=== PATIENT | female | born 1965 | race Caucasian/White ===

== ENCOUNTER → 2017-01-17 | Outpatient (CLI) | payer BC ==
[~2017-01-17] MED LIST: ZOMIG
--- OUTSIDE RECORDS SUMMARY | 2017-01-17 15:44 | XMS REPORT | Continuity of Care Document ---
Author Author [facility] Organization [facility] Address Unknown Phone Unavailable Allergies Active Description Code Type Severity Reaction Onset Reported/Identified Relationship to Patient Clinical Status Yes No Known Drug Allergies [id number] Drug Allergy Unknown N/ A 03/11/2008 Medications Problems Date Dx Coded Attending Type Code Diagnosis Diagnosed By 11/20/2015 SUSANNAH CUNNINGHAM, MARIA M Mata Ot 625.9 Procedures Results Encounters ACCT No. Visit Date/Time Discharge Status Pt. Type Provider Facility Loc./Unit Complaint [id number] 03/01/2014 15:13:00 2013 23:59:59 CLS Outpatient MARIA M DAVALOS MD [facility] RAD
--- NOTE | 2017-01-17 18:04 | Diagnostic Imaging Report ---
PROCEDURE: CT sinuses without contrast TECHNIQUE: Multiple contiguous axial images were obtained through the sinuses without the use of intravenous contrast. Coronal and sagittal reformations were then performed. INDICATION: Left eye swelling. COMPARISON: None. FINDINGS: There is minimal mucosal thickening in the floor of the right maxillary sinus. The paranasal sinuses are otherwise clear. The ostiomeatal units and frontal recesses are patent. Midline nasal septum. No large pranay bullosa. Left Michelle cell. There is mild soft tissue thickening of the left eyelids compared to the right. No soft tissue thickening or fluid collections within the orbits. The mastoid air cells are clear. Moderate degenerative changes in the temporomandibular joints, left greater than right. IMPRESSION: 1. Minimal mucosal thickening in the floor of the right maxillary sinus. The paranasal sinuses are otherwise clear. 2. Soft tissue thickening of the left eyelids in relation to the right is nonspecific. No abnormal soft tissue thickening or fluid collections in the orbits. Dictated by: Dictated on workstation # [id number]
== END ==
LOC: RAD 15:41
PROVIDERS: ATTEND Nurse Practitioner Family
DX: R22.0 Localized swelling, mass and lump, head (principal)
CPT/HCPCS: 70486

== ENCOUNTER 2019-07-02 06:35 | Outpatient (CLI) | payer BC ==
[~2019-07-02] VITALS: Ht 152.4 cm; Wt 61.7 kg
[2019-07-02] MEDS ORDERED: HYDR25TA4 PO (16:21)
== END 2019-07-02 16:25 | disposition home or self-care (01) ==
LOC: PREOP 06:35
PROVIDERS: ATTEND Internal Medicine
DX: Z01.818 Encounter for other preprocedural examination (principal)

== ENCOUNTER 2019-07-06 07:04 | Day surgery (SDC) | payer BC ==
--- NOTE | 2019-06-21 18:31 | HISTORY AND PHYSICAL ---
DATE OF SERVICE: COLONOSCOPY HISTORY AND PHYSICAL HISTORY OF PRESENT ILLNESS: The patient is a 54-year-old white female referred by Dr. Ely for screening colonoscopy. She does report a history of chronic constipation. She will typically go every 7 to 10 days, passing a hard stool, many times having to strain. She does not like to take laxatives. She has previously not undergone colonoscopy. She is not aware of any rectal bleeding or melena and reports that her weight has been stable. She denies any significant abdominal cramping only prior to the passage of stool while she noted abdominal bloating when she has not had a bowel movement for over a week. She is taking no hnzj-[id number]-vsdfsge medications and reports hydrochlorothiazide for hypertension. She takes Zomig 5 mg p.r.n. migraine headaches. PAST SURGICAL HISTORY: She had a cholecystectomy in 2008, total abdominal hysterectomy in 2009. She has had bilateral breast implants and breast augmentation in the past. FAMILY HISTORY: Her father was an alcoholic that she knows little about, believes he probably of cirrhosis of the liver in his early 60s. Mother of complications of diabetes at the age of 73. 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 REVIEW OF SYSTEMS: CONSTITUTIONAL: The patient denies any night sweats, chills, fever or change in weight. CARDIOVASCULAR: She has had no past history of cardiovascular procedures. Denies chest pain, syncope, presyncope, palpitations or heart racing. PULMONARY: She denies any problems with cough, wheezing, chest congestion or dyspnea on exertion or at rest. GASTROINTESTINAL: As noted in the HPI. PHYSICAL EXAMINATION: GENERAL: Reveals a well-appearing huang white female, in no acute distress. VITAL SIGNS: Weight 136 pounds, blood pressure 104/80. HEENT: Unremarkable. Sclerae nonicteric. She has a Mallampati class 2 pharyngeal configuration. CHEST: Clear to auscultation. CARDIOVASCULAR: Reveals regular rate and rhythm without murmur, S3 or S4. ABDOMEN: Soft, supple without mass, organomegaly or tenderness. It had been about 2 days since her last bowel movement. No abdominal pain was noted. EXTREMITIES: Reveal no cyanosis, clubbing or edema. ASSESSMENT AND PLAN: The patient was set up for screening colonoscopy on 07/06/2019. Prep instructions with the Philippe-prep kit were given and the patient was advised to initiate MiraLAX 17 g daily for constipation symptoms and continue her current fiber supplementation. Depending on how she responds to this, we can discuss other options after colonoscopic evaluation. I thank you for the referral of this pleasant lady. Job ID: [id number] DocumentID: [id number] Dictated Date: 06/20/2019 17:46:26 Coal Sampler Date: 06/20/2019 18:48:09 Dictated By: RUTH RUSSELL MD MTDD
[~2019-07-06] VITALS: Ht 152.4 cm; Wt 61.7 kg
[2019-07-06] VITALS (13 sets, daily range): BP systolic 102–128; BP diastolic 63–81
[~2019-07-06 07:04] MED LIST changes: +HYDR25TA4 PO
[2019-07-06] MEDS ORDERED: D5 LR IV SOLUTION 1,000 ML IV STA (07:08)
[2019-07-06] MEDS ORDERED: D5 LR IV SOLUTION 1,000 ML IV ONE (07:09)
[2019-07-06] MEDS ORDERED: fentaNYL INJECTION 100 MCG/2 ML AMP IVP ONE (07:15)
[2019-07-06] MEDS ORDERED: LIDOCAINE JELLY 2% 6 ML SYRINGE MM PRN (07:15)
[2019-07-06] MEDS ORDERED: MIDAZOLAM 2 MG/2 ML (VERSED) VIAL IVP ONE (07:15)
[2019-07-06] MEDS ORDERED: MIDAZOLAM 2 MG/2 ML (VERSED) VIAL ONE ×2 (07:31)
[2019-07-06] MEDS ORDERED: LIDOCAINE JELLY 2% 6 ML SYRINGE ONE (07:31)
[2019-07-06] MEDS ORDERED: fentaNYL INJECTION 100 MCG/2 ML AMP ONE (07:31)
--- NOTE | 2019-07-06 09:44 | Pre-Op Note & Conscious Sedat ---
Pre-Operative Progress Note H&P Reviewed The H&P was reviewed, patient examined and no changes noted. Date H&P Reviewed: Jul 06, 2019 Time H&P Reviewed: 07:40 Conscious Sedation Pre-Proced ASA Score 1 For ASA 3 and 4: Consider anesthesia and medical clearance. Also, for patients with a history of failed moderate sedation consider anesthesia. Airway Lungs Heart ASA score ASA 1: a normal healthy patient ASA 2: a patient with a mild systemic disease (mid diabetes, controlled hypertension, obesity ASA 3: a patient with a severe systemic disease that limits activity (angina, COPD, prior Myocardial infarction) ASA 4: a patient with an incapacitating disease that is a constant threat to life (CHF, renal failure) ASA 5: a moribund patient not expected to survive 24 hrs. (ruptured aneurysm) ASA 6: a declared brain- patient whose organs are being harvested. For emergent operations, add the letter E after the classification Mallampati Classification Grade 2 Sedation Plan Analgesia, Amnesia, Plan communicated to team members, Discussed options with patient/fam, Discussed risks with patient/fam The patient is an appropriate candidate to undergo the planned procedure, sedation, and anesthesia. The patient immediately re-assessed prior to indication. RUTH RUSSELL MD Jul 06, 2019 09:44
--- OUTSIDE RECORDS SUMMARY | 2019-07-06 10:02 | XMS REPORT | CCD ---
Author Author Ira Morales Organization [facility] Address [address] [place] [address] Phone Care Team Providers Care Channel Marketing Coordinator Name Role Phone PP Unavailable CCM Unavailable Summary Purpose Interface Exchange Insurance Providers Payer name Policy type / Coverage type Covered democrat ID Effective Begin Date Effective End Date Blue Cross Blue [facility] Blue Cross/Blue [facility] [id number] Unknown Unknown Family history Son Diagnosis Age At Onset No Family Disease Entered N/A Sister Diagnosis Age At Onset No Family Disease Entered N/A Grandmother Diagnosis Age At Onset No Family Disease Entered N/A Aunt Diagnosis Age At Onset Breast cancer Unknown Father Diagnosis Age At Onset Diabetes Unknown Mother Diagnosis Age At Onset Diabetes Unknown Cardiovascular disease Unknown Uncle Diagnosis Age At Onset Melanoma Unknown Leukemia Unknown Daughter Diagnosis Age At Onset No Family Disease Entered N/A First cousin Diagnosis Age At Onset Leukemia Unknown Brother Diagnosis Age At Onset No Family Disease Entered N/A Social History Social History Element Codes Description Effective Dates Employment Unknown 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 Unknown Has never used illegal drugs 09/27/2011 Allergies, Adverse Reactions, Alerts Substance Reaction Codes Entered Date Inactivated Date Status * NO KNOWN ENVIRONMENTAL ALLERGIES Unknown 02/14/2012 No Inactive Date Active * NO KNOWN FOOD ALLERGIES Unknown 02/14/2012 No Inactive Date Active * NO KNOWN DRUG ALLERGIES Unknown 09/27/2011 No Inactive Date Active Past Medical History Illness Codes Condition Status Onset Date Resolved Date Encounter for gynecological examination (general) (routine) without abnormal findings ICD-9: V72.31 ICD-10: Z01.419 Active 06/12/2019 Unknown Acute upper respiratory infection, unspecified ICD-9: 465.9 ICD-10: J06.9 Active 03/02/2019 Unknown Other allergic rhinitis ICD-9: 477.8 ICD-10: J30.89 Active 12/02/2016 Unknown Encounter for general adult medical examination without abnormal findings ICD-9: V70.0 ICD-10: Z00.00 Active 05/19/2018 Unknown Essential (primary) hypertension ICD-9: 401.9 ICD-10: I10 Active 05/19/2018 Unknown Mixed hyperlipidemia ICD- 9: 272.2 ICD-10: E78.2 Active 05/19/2018 Unknown Overweight ICD-9: 278.02 ICD-10: E66.3 Active 04/22/2017 Unknown Edema of left eye, unspecified eyelid ICD-9: 374.82 ICD-10: H02.846 Active 01/11/2017 Unknown Localized swelling, mass and lump, head ICD-9: 782.2 ICD-10: R22.0 Active 01/11/2017 Unknown Dizziness and giddiness ICD-9: 780.4 ICD-10: R42 Active 12/02/2016 Unknown Acute laryngopharyngitis ICD-9: 465.9 ICD-10: J06.0 Active 01/25/2016 Unknown Acute recurrent maxillary sinusitis ICD-9: 461.0 ICD-10: J01.01 Active 01/25/2016 Unknown Cough ICD-9: 786.2 ICD-10: R05 Active 01/25/2016 Unknown Streptococcal pharyngitis ICD-9: 034.0 ICD-10: J02.0 Active 12/29/2015 Unknown Other screening mammogram ICD-9: V76.12 Active 08/24/2015 Unknown Urinary tract infection ICD-9: 599.0 Active 01/09/2015 Unknown OVERWEIGHT ICD-9: 278.02 Active 11/29/2014 Unknown Pelvic pain in female ICD- 9: 625.9 Active 02/18/2014 Unknown ACUTE URI ICD-9: 465.9 Active 01/05/2013 Unknown COUGH ICD-9: 786.2 Active 01/05/2013 Unknown Obesity ICD-9: 278.00 Active 11/01/2012 Unknown Migraine headache ICD-9: 346.90 Active 08/17/2012 Unknown ROUTINE GYNE EXAM ICD-9: V72.31 Active 11/18/2011 Unknown Hypertension Unknown Active 10/20/2011 Unknown ESSENTIAL HYPERTENSION ICD-9: 401.9 Active 10/20/2011 Unknown Pharyngitis ICD-9: 462 Active 10/20/2011 Unknown Migraines Unknown Active 09/27/2011 Unknown Problems Condition Codes Effective Dates Condition Status Encounter for gynecological examination (general) (routine) without abnormal findings ICD-9: V72.31 ICD-10: Z01.419 06/12/2019 Active Acute upper respiratory infection, unspecified ICD-9: 465.9 ICD-10: J06.9 03/02/2019 Active Other allergic rhinitis ICD-9: 477.8 ICD-10: J30.89 12/02/2016 Active Encounter for general adult medical examination without abnormal findings ICD-9: V70.0 ICD-10: Z00.00 05/19/2018 Active Essential (primary) hypertension ICD-9: 401.9 ICD-10: I10 05/19/2018 Active Mixed hyperlipidemia ICD- 9: 272.2 ICD-10: E78.2 05/19/2018 Active Overweight ICD-9: 278.02 ICD-10: E66.3 04/22/2017 Active Edema of left eye, unspecified eyelid ICD-9: 374.82 ICD-10: H02.846 01/11/2017 Active Localized swelling, mass and lump, head ICD-9: 782.2 ICD-10: R22.0 01/11/2017 Active Dizziness and giddiness ICD-9: 780.4 ICD-10: R42 12/02/2016 Active Acute laryngopharyngitis ICD-9: 465.9 ICD-10: J06.0 01/25/2016 Active Acute recurrent maxillary sinusitis ICD-9: 461.0 ICD-10: J01.01 01/25/2016 Active Cough ICD-9: 786.2 ICD-10: R05 01/25/2016 Active Streptococcal pharyngitis ICD-9: 034.0 ICD-10: J02.0 12/29/2015 Active Other screening mammogram ICD-9: V76.12 08/24/2015 Active Urinary tract infection ICD-9: 599.0 01/09/2015 Active OVERWEIGHT ICD-9: 278.02 11/29/2014 Active Pelvic pain in female ICD- 9: 625.9 02/18/2014 Active ACUTE URI ICD-9: 465.9 01/05/2013 Active COUGH ICD-9: 786.2 01/05/2013 Active Obesity ICD-9: 278.00 11/01/2012 Active Migraine headache ICD-9: 346.90 08/17/2012 Active ROUTINE GYNE EXAM ICD-9: V72.31 11/18/2011 Active Hypertension Unknown 10/20/2011 Active ESSENTIAL HYPERTENSION ICD-9: 401.9 10/20/2011 Active Pharyngitis ICD-9: 462 10/20/2011 Active Migraines Unknown 09/27/2011 Active Medications Medication Codes Instructions Start Date Stop Date Status Fill Instructions amoxicillin 500 mg tablet RxNorm: 439736 1 Tablet(s) PO TID 03/02/2019 03/08/2019 Inactive Zomig 5 mg tablet RxNorm: 360396 TAKE ONE TABLET BY MOUTH ONCE DAILY NEEDED 05/30/2018 No Stop Date Active hydrochlorothiazide 25 mg tablet RxNorm: 869532 1 Tablet(s) PO daily TAKE ONE TABLET BY MOUTH ONCE DAILY 05/19/2018 08/11/2019 Active patient to call when needs refills hydrochlorothiazide 25 mg tablet RxNorm: 499280 TAKE ONE TABLET BY MOUTH ONCE DAILY 04/25/2018 05/18/2018 Inactive hydrochlorothiazide 25 mg tablet RxNorm: 814405 TAKE ONE TABLET BY MOUTH ONCE DAILY 10/24/2017 04/24/2018 Inactive phentermine 37.5 mg capsule RxNorm: 658381 1 Capsule(s) PO daily 1 po q am 1/2 tab po q afternoon 06/27/2017 07/26/2017 Inactive phentermine 37.5 mg capsule RxNorm: 124000 1 Capsule(s) PO daily 1 po q am 1/2 tab po q afternoon 04/22/2017 05/21/2017 Inactive Zomig 5 mg tablet RxNorm: 310815 TAKE ONE TABLET BY MOUTH ONCE DAILY NEEDED 04/18/2017 05/23/2017 Inactive hydrochlorothiazide 25 mg tablet RxNorm: 350766 TAKE ONE TABLET BY MOUTH ONCE DAILY 04/18/2017 10/14/2017 Inactive Zithromax Z-Cameron 250 mg tablet RxNorm: 385541 1 Tablet(s) PO UD 01/11/2017 01/15/2017 Inactive Besivance 0.6 % eye drops,suspension RxNorm: 770556 1 Drop(s) OPH TID 01/11/2017 01/17/2017 Inactive ciprofloxacin 0.3 % eye drops RxNorm: 577138 Drop(s) OPH 1-2 drops every 2 hours while awake x 2 days, then every 4 hour x 5 days 12/10/2016 No Stop Date Active meclizine 25 mg tablet RxNorm: 011603 1 Tablet(s) PO TID as needed 12/03/2016 12/12/2016 Inactive Zithromax Z-Cameron 250 mg tablet RxNorm: 940331 1 Tablet(s) PO UD 12/03/2016 01/10/2017 Inactive Lipitor 10 mg tablet RxNorm: 010689 Tablet(s) 1 Tablet(s) PO QPM TAKE ONE TABLET BY MOUTH ONCE DAILY IN THE EVENING 03/22/2016 05/18/2018 Inactive hydrochlorothiazide 25 mg tablet RxNorm: 574932 Tablet(s) PO 03/22/2016 08/18/2016 Inactive TAKE ONE TABLET BY MOUTH EVERY DAY clonidine HCl 0.1 mg tablet RxNorm: 683550 1/2 Tablet(s) PO BID as needed for hot flashes 02/19/2016 03/19/2016 Inactive Zomig 5 mg tablet RxNorm: 831657 1 Tablet(s) PO daily 02/02/2016 04/17/2017 Inactive TAKE ONE TABLET BY MOUTH NEEDED please dispense generic Keflex 500 mg capsule RxNorm: 296229 1 Capsule(s) PO TID 01/26/2016 02/04/2016 Inactive hydrochlorothiazide 25 mg tablet RxNorm: 093149 1 Tablet(s) PO daily TAKE ONE TABLET BY MOUTH EVERY DAY 01/15/2016 03/14/2016 Inactive Lipitor 10 mg tablet RxNorm: 321085 1 Tablet(s) PO QPM TAKE ONE TABLET BY MOUTH ONCE DAILY IN THE EVENING 01/15/2016 03/14/2016 Inactive Kenalog 40 mg/mL suspension for injection RxNorm: 3012984 Milliliter(s) Inj 12/30/2015 12/30/2015 Inactive amoxicillin 500 mg capsule RxNorm: 855178 1 Capsule(s) PO TID 12/30/2015 01/05/2016 Inactive ceftriaxone 500 mg solution for injection RxNorm: 9532838 Inj 12/30/2015 12/30/2015 Inactive hydrochlorothiazide 25 mg tablet RxNorm: 708333 1 Tablet(s) PO daily TAKE ONE TABLET BY MOUTH EVERY DAY 11/14/2015 01/12/2016 Inactive Patient needs to make an appt Lipitor 10 mg tablet RxNorm: 821151 1 Tablet(s) PO QPM TAKE ONE TABLET BY MOUTH ONCE DAILY IN THE EVENING 11/14/2015 01/12/2016 Inactive Patient needs to make an appt clonidine HCl 0.1 mg tablet RxNorm: 100324 1/2 Tablet(s) PO BID as needed for hot flashes 02/14/2015 02/13/2015 Inactive clonidine HCl 0.1 mg tablet RxNorm: 658161 1/2 Tablet(s) PO BID as needed for hot flashes 02/14/2015 03/15/2015 Inactive Zomig 5 mg tablet RxNorm: 847952 1 Tablet(s) PO daily 02/13/2015 02/01/2016 Inactive TAKE ONE TABLET BY MOUTH NEEDED please dispense generic Bactrim DS 800 mg-160 mg tablet RxNorm: 061200 1 Tablet(s) PO BID 01/21/2015 01/20/2015 Inactive Bactrim DS 800 mg-160 mg tablet RxNorm: 947833 1 Tablet(s) PO BID 01/21/2015 01/27/2015 Inactive Cipro 500 mg tablet RxNorm: 775439 1 Tablet(s) PO BID 01/09/2015 01/15/2015 Inactive Pyridium 200 mg tablet RxNorm: 5143208 1 Tablet(s) PO TID PRN 01/09/2015 01/15/2015 Inactive phentermine 37.5 mg capsule RxNorm: 057210 1 Capsule(s) PO daily 1 po q am 1/2 tab po q afternoon 11/29/2014 12/28/2014 Inactive Lipitor 10 mg tablet RxNorm: 106259 TAKE ONE TABLET BY MOUTH ONCE DAILY IN THE EVENING 10/20/2014 10/14/2015 Inactive hydrochlorothiazide 25 mg tablet RxNorm: 096003 TAKE ONE TABLET BY MOUTH EVERY DAY 10/20/2014 10/14/2015 Inactive phentermine 37.5 mg capsule RxNorm: 416806 1 Capsule(s) PO daily 1 po q am 1/2 tab po q afternoon 08/22/2014 09/20/2014 Inactive Lipitor 10 mg tablet RxNorm: 983597 TAKE ONE TABLET BY MOUTH ONCE DAILY IN THE EVENING 07/18/2014 10/15/2014 Inactive hydrochlorothiazide 25 mg tablet RxNorm: 115768 TAKE ONE TABLET BY MOUTH EVERY DAY 07/18/2014 10/15/2014 Inactive Zomig 5 mg tablet RxNorm: 460562 1 Tablet(s) PO daily 07/17/2014 02/12/2015 Inactive TAKE ONE TABLET BY MOUTH NEEDED please dispense generic Lipitor 10 mg tablet RxNorm: 736022 1 Tablet(s) PO QPM 02/21/2014 06/20/2014 Inactive Lipitor 10 mg tablet RxNorm: 815576 1 Tablet(s) PO QPM 02/20/2014 02/20/2014 Inactive Zomig 5 mg tablet RxNorm: 912246 1 Tablet(s) PO daily 10/30/2013 07/16/2014 Inactive TAKE ONE TABLET BY MOUTH NEEDED please dispense generic phentermine 37.5 mg capsule RxNorm: 739467 1 Capsule(s) PO daily 1 po q am 1/ tab po q afternoon 09/13/2013 10/12/2013 Inactive Zomig 5 mg tablet RxNorm: 301327 1 Tablet(s) PO daily 06/28/2013 10/29/2013 Inactive TAKE ONE TABLET BY MOUTH NEEDED please dispense generic phentermine 37.5 mg capsule RxNorm: 461361 1 Capsule(s) PO daily 06/28/2013 07/27/2013 Inactive hydrochlorothiazide 25 mg tablet RxNorm: 426175 1 Tablet(s) PO TAKE ONE TABLET BY MOUTH EVERY DAY 06/25/2013 06/25/2013 Inactive hydrochlorothiazide 25 mg tablet RxNorm: 920640 1 Tablet(s) PO daily TAKE ONE TABLET BY MOUTH EVERY DAY 06/25/2013 11/13/2015 Inactive phentermine 37.5 mg capsule RxNorm: 794752 1 Capsule(s) PO daily 02/23/2013 03/24/2013 Inactive Zomig 5 mg tablet RxNorm: 271457 1 Tablet(s) PO daily 02/07/2013 06/27/2013 Inactive TAKE ONE TABLET BY MOUTH NEEDED Zomig 5 mg tablet RxNorm: 869409 Tablet(s) PO TAKE ONE TABLET BY MOUTH NEEDED 02/07/2013 05/29/2018 Inactive Rocephin 500 mg Solution for Injection RxNorm: 2291553 1.5 Milliliter(s) Inj 01/05/2013 01/05/2013 Inactive amoxicillin 500 mg capsule RxNorm: 740076 1 Capsule(s) PO TID 01/05/2013 01/11/2013 Inactive phentermine 37.5 mg capsule RxNorm: 295293 1 Capsule(s) PO daily 01/05/2013 02/03/2013 Inactive hydrochlorothiazide 25 mg tablet RxNorm: 369603 Tablet(s) PO TAKE ONE TABLET BY MOUTH EVERY DAY 12/07/2012 06/24/2013 Inactive phentermine 37.5 mg capsule RxNorm: 986093 1 Capsule(s) PO daily 11/01/2012 11/30/2012 Inactive Topamax 25 mg tablet RxNorm: 552336 1 Tablet(s) PO BID start with 25mg po in the evening and increase to twice daily after 2 weeks 08/17/2012 09/15/2012 Inactive hydrochlorothiazide 25 mg Tab RxNorm: 882026 Tablet(s) PO 05/01/2012 03/21/2016 Inactive TAKE ONE TABLET BY MOUTH EVERY DAY hydrochlorothiazide 25 mg tablet RxNorm: 757214 1 Tablet(s) PO daily 04/28/2012 04/30/2012 Inactive Zomig 5 mg tablet RxNorm: 450070 1 Tablet(s) PO 01/25/2012 02/06/2013 Inactive TAKE ONE TABLET BY MOUTH NEEDED Zomig 5 mg Tab RxNorm: 852389 1 Tablet(s) PO PRN 11/24/2011 11/23/2011 Inactive Zomig 5 mg Tab RxNorm: 983778 Tablet(s) PO 11/24/2011 01/24/2012 Inactive TAKE ONE TABLET BY MOUTH NEEDED phentermine 37.5 mg capsule RxNorm: 501188 1 Capsule(s) PO daily 10/20/2011 11/18/2011 Inactive Zomig 5 mg Tab RxNorm: 649521 1 Tablet(s) PO PRN No Start Date 11/23/2011 Inactive Zithromax Z-Cameron 250 mg Tab RxNorm: 896042 Tablet(s) PO No Start Date 11/17/2011 Inactive ciprofloxacin 0.3 % eye drops RxNorm: 634152 Drop(s) OPH 1-2 drops every 2 hours while awake x 2 days, then every 4 hour x 5 days No Start Date 12/09/2016 Inactive hydrochlorothiazide 25 mg Tab RxNorm: 553483 1 Tablet(s) PO daily No Start Date 04/27/2012 Inactive Medication Administered Medication Codes Instructions Start Date Status ceftriaxone 500 mg solution for injection RxNorm: 8264357 12/30/2015 No longer Active Kenalog 40 mg/mL suspension for injection RxNorm: 3682066 Milliliter 12/30/2015 No longer Active Rocephin 500 mg Solution for Injection RxNorm: 7902230 1.5Milliliter 01/05/2013 No longer Active Immunizations Vaccine Codes Date Status PPD Unknown 11/29/2014 completed PPD Unknown 06/25/2014 completed PPD Unknown 09/13/2013 completed Assessments Condition Codes Effective Dates Encounter for gynecological examination (general) (routine) without abnormal findings ICD-10: Z01.419 ICD-9: V72.31 06/12/2019 Other allergic rhinitis ICD-10: J30.89 ICD-9: 477.8 03/02/2019 Acute upper respiratory infection, unspecified ICD-10: J06.9 ICD-9: 465.9 03/02/2019 Mixed hyperlipidemia ICD-10: E78.2 ICD-9: 272.2 05/19/2018 Essential (primary) hypertension ICD-10: I10 ICD-9: 401.9 05/19/2018 Overweight ICD-10: E66.3 ICD-9: 278.02 06/27/2017 Edema of left eye, unspecified eyelid ICD-10: H02.846 ICD-9: 374.82 01/11/2017 Localized swelling, mass and lump, head ICD-10: R22.0 ICD-9: 782.2 01/11/2017 Dizziness and giddiness ICD-10: R42 ICD-9: 780.4 12/03/2016 Cough ICD-10: R05 ICD-9: 786.2 01/26/2016 Acute laryngopharyngitis ICD-10: J06.0 ICD-9: 465.9 01/26/2016 Acute recurrent maxillary sinusitis ICD-10: J01.01 ICD-9: 461.0 01/26/2016 Streptococcal pharyngitis ICD-10: J02.0 ICD-9: 034.0 12/30/2015 Other screening mammogram ICD-9: V76.12 08/25/2015 Urinary tract infection ICD-9: 599.0 01/09/2015 OVERWEIGHT ICD-9: 278.02 11/29/2014 ESSENTIAL HYPERTENSION SNOMED: 73401991 ICD-9: 401.9 02/18/2014 Pelvic pain in female ICD-9: 625.9 02/18/2014 MIGRAINE NOS/NOT INTRCBL ICD-9: 346.90 02/18/2014 OBESITY ICD-9: 278.00 09/13/2013 COUGH ICD-9: 786.2 01/05/2013 ACUTE URI ICD-9: 465.9 01/05/2013 ROUTINE GYNE EXAM ICD-9: V72.31 11/18/2011 Pharyngitis ICD-9: 462 10/20/2011 Reason For Visit Reason For Visit Effective Dates Notes well woman exam (40-65 years) 06/12/2019 sore throat 03/02/2019 blood pressure followup 05/19/2018 weight gain/obesity 06/27/2017 weight gain/obesity 04/22/2017 eye pain 01/11/2017 dizziness 12/03/2016 cough 01/26/2016 sore throat 12/30/2015 urinary urgency 01/09/2015 fatigue 02/18/2014 blood pressure followup 06/28/2013 sore throat 01/05/2013 weight gain/obesity 11/01/2012 headache 08/17/2012 weight gain/obesity 02/14/2012 pt would like to talk about phentermine, she was taking it for about 2 months, but has been off it for a few weeks well woman exam (40-65 years) 11/18/2011 hypertension 10/20/2011 Results Observation Observation Code Item Item Code Result Date Cbc With Differential Ord2 WBC 6.35 K/ul 06/15/2019 Cbc With Differential Ord2 RBC 4.36 M/ul 06/15/2019 Cbc With Differential Ord2 HGB 14.4 g/dl 06/15/2019 Cbc With Differential Ord2 HCT 43.0 % 06/15/2019 Cbc With Differential Ord2 Neut% 48.6 % 06/15/2019 Cbc With Differential Ord2 MCV 98.6 fl 06/15/2019 Cbc With Differential Ord2 Lymph% 41.3 % 06/15/2019 Cbc With Differential Ord2 MCH 33.0 pg 06/15/2019 Cbc With Differential Ord2 [place]% 7.4 % 06/15/2019 Cbc With Differential Ord2 MCHC 33.5 pg 06/15/2019 Cbc With Differential Ord2 Eos% 2.4 % 06/15/2019 Cbc With Differential Ord2 PLT 324 K/ul 06/15/2019 Cbc With Differential Ord2 Baso% 0.3 % 06/15/2019 Cbc With Differential Ord2 RDW 12.6 % 06/15/2019 Cbc With Differential Ord2 Neut ABS# 3.09 K/ul 06/15/2019 Cbc With Differential Ord2 Lymph ABS# 2.62 K/ul 06/15/2019 Cbc With Differential Ord2 [place] ABS# 0.5 K/ul 06/15/2019 Cbc With Differential Ord2 Eos ABS# 0.2 K/ul 06/15/2019 Cbc With Differential Ord2 Baso ABS# 0.0 K/ul 06/15/2019 Comp Metabolic Ltu579 NA 140 mEq/L 05/24/2018 Comp Metabolic Elb782 K 3.7 mEq/L 05/24/2018 Comp Metabolic Anb350 CL 102 mEq/L 05/24/2018 Comp Metabolic Ikh242 CO2 30.0 mEq/L 05/24/2018 Comp Metabolic Ogi352 ANION GAP 12 05/24/2018 Comp Metabolic Nku854 GLUCOSE 101 mg/dL 05/24/2018 Comp Metabolic Pnz505 Creat 0.8 mg/dL 05/24/2018 Comp Metabolic Xtu969 eGFR 86 ml/min/1.73m2 05/24/2018 Comp Metabolic Ejp694 BUN 10 mg/dL 05/24/2018 Comp Metabolic Xja500 B/C Ratio 13.3 Ratio 05/24/2018 Comp Metabolic Wgc203 CALCIUM 10.1 mg/dL 05/24/2018 Comp Metabolic Bws183 ALK PHOS 64 U/L 05/24/2018 Comp Metabolic Rot790 AST(SGOT) 14 U/L 05/24/2018 Comp Metabolic Vqm279 ALT(SGPT) 13 U/L 05/24/2018 Comp Metabolic Qxn595 BILI T 0.5 mg/dL 05/24/2018 Comp Metabolic Zpu137 ALBUMIN 4.5 g/dL 05/24/2018 Comp Metabolic Rri009 TPRO 6.8 g/dL 05/24/2018 Comp Metabolic Pwe079 GLOB 2.3 g/dL 05/24/2018 Comp Metabolic Ymw476 A/G Ratio 2.0 Ratio 05/24/2018 Comp Metabolic Ixx874 Osmo 279 mOsmo 05/24/2018 Cbc With Differential Ord2 WBC 6.03 K/ul 05/24/2018 Cbc With Differential Ord2 RBC 4.43 M/ul 05/24/2018 Cbc With Differential Ord2 HGB 14.7 g/dl 05/24/2018 Cbc With Differential Ord2 HCT 43.4 % 05/24/2018 Cbc With Differential Ord2 Neut% 52.2 % 05/24/2018 Cbc With Differential Ord2 MCV 98.0 fl 05/24/2018 Cbc With Differential Ord2 Lymph% 38.5 % 05/24/2018 Cbc With Differential Ord2 MCH 33.2 pg 05/24/2018 Cbc With Differential Ord2 [place]% 6.5 % 05/24/2018 Cbc With Differential Ord2 Eos% 2.5 % 05/24/2018 Cbc With Differential Ord2 MCHC 33.9 pg 05/24/2018 Cbc With Differential Ord2 PLT 331 K/ul 05/24/2018 Cbc With Differential Ord2 Baso% 0.3 % 05/24/2018 Cbc With Differential Ord2 RDW 12.7 % 05/24/2018 Cbc With Differential Ord2 Neut ABS# 3.15 K/ul 05/24/2018 Cbc With Differential Ord2 Lymph ABS# 2.32 K/ul 05/24/2018 Cbc With Differential Ord2 [place] ABS# 0.4 K/ul 05/24/2018 Cbc With Differential Ord2 Eos ABS# 0.2 K/ul 05/24/2018 Cbc With Differential Ord2 Baso ABS# 0.0 K/ul 05/24/2018 Lipid Ord30 CHOL 219 mg/dL 05/24/2018 Lipid Ord30 HDL 69.0 mg/dl 05/24/2018 Lipid Ord30 TRIG 182 mg/dL 05/24/2018 Lipid Ord30 LDL 114 mg/dL 05/24/2018 Lipid Ord30 C/HDL 3.2 Ratio 05/24/2018 Tsh Ord6 TSH (3rd IS) 2.34 uIU/mL 05/24/2018 Tsh Ord6 hTSH II 1.28 uIU/mL 01/12/2017 Comp Metabolic Oon034 NA 136 mEq/L 04/29/2016 Comp Metabolic Qoy953 K 3.8 mEq/L 04/29/2016 Comp Metabolic Wpv847 CL 101 mEq/L 04/29/2016 Comp Metabolic Dlg880 CO2 32.0 mEq/L 04/29/2016 Comp Metabolic Qjd385 ANION GAP 7 04/29/2016 Comp Metabolic Oct032 GLUCOSE 100 mg/dL 04/29/2016 Comp Metabolic Yxa265 Creat 0.7 mg/dL 04/29/2016 Comp Metabolic Uzl789 eGFR 99 ml/min/1.73m2 04/29/2016 Comp Metabolic Gfz143 BUN 11 mg/dL 04/29/2016 Comp Metabolic Kvm716 B/C Ratio 16.4 Ratio 04/29/2016 Comp Metabolic Fuc478 CALCIUM 9.7 mg/dL 04/29/2016 Comp Metabolic Etr355 ALK PHOS 49 U/L 04/29/2016 Comp Metabolic Xpj907 AST(SGOT) 11 U/L 04/29/2016 Comp Metabolic Hbd467 ALT(SGPT) 10 U/L 04/29/2016 Comp Metabolic Nee083 BILI T 0.6 mg/dL 04/29/2016 Comp Metabolic Brm175 ALBUMIN 4.3 g/dL 04/29/2016 Comp Metabolic Tus584 TPRO 6.9 g/dL 04/29/2016 Comp Metabolic Hpu535 GLOB 2.6 g/dL 04/29/2016 Comp Metabolic Ngk721 A/G Ratio 1.7 Ratio 04/29/2016 Comp Metabolic Xjd329 Osmo 271 mOsmo 04/29/2016 Lipid Ord30 CHOL 212 mg/dL 04/29/2016 Lipid Ord30 HDL 58.0 mg/dl 04/29/2016 Lipid Ord30 TRIG 170 mg/dL 04/29/2016 Lipid Ord30 LDL 120 mg/dL 04/29/2016 Lipid Ord30 C/HDL 3.7 Ratio 04/29/2016 Cbc With Differential Ord2 WBC 8.73 K/ul 04/29/2016 Cbc With Differential Ord2 RBC 4.56 M/ul 04/29/2016 Cbc With Differential Ord2 HGB 14.9 g/dl 04/29/2016 Cbc With Differential Ord2 HCT 44.0 % 04/29/2016 Cbc With Differential Ord2 Neut% 58.1 % 04/29/2016 Cbc With Differential Ord2 Lymph% 31.8 % 04/29/2016 Cbc With Differential Ord2 MCV 96.5 fl 04/29/2016 Cbc With Differential Ord2 [place]% 7.2 % 04/29/2016 Cbc With Differential Ord2 MCH 32.7 pg 04/29/2016 Cbc With Differential Ord2 Eos% 2.7 % 04/29/2016 Cbc With Differential Ord2 MCHC 33.9 pg 04/29/2016 Cbc With Differential Ord2 PLT 306 K/ul 04/29/2016 Cbc With Differential Ord2 Baso% 0.2 % 04/29/2016 Cbc With Differential Ord2 Neut ABS# 5.06 K/ul 04/29/2016 Cbc With Differential Ord2 RDW 13.1 % 04/29/2016 Cbc With Differential Ord2 Lymph ABS# 2.78 K/ul 04/29/2016 Cbc With Differential Ord2 [place] ABS# 0.6 K/ul 04/29/2016 Cbc With Differential Ord2 Eos ABS# 0.2 K/ul 04/29/2016 Cbc With Differential Ord2 Baso ABS# 0.0 K/ul 04/29/2016 Tsh Ord6 hTSH II 2.07 uIU/mL 04/29/2016 Cbc With Differential Ord2 WBC 11.49 K/ul 01/26/2016 Cbc With Differential Ord2 RBC 4.74 M/ul 01/26/2016 Cbc With Differential Ord2 HGB 15.5 g/dl 01/26/2016 Cbc With Differential Ord2 Neut% 63.1 % 01/26/2016 Cbc With Differential Ord2 HCT 45.6 % 01/26/2016 Cbc With Differential Ord2 MCV 96.2 fl 01/26/2016 Cbc With Differential Ord2 Lymph% 26.8 % 01/26/2016 Cbc With Differential Ord2 MCH 32.7 pg 01/26/2016 Cbc With Differential Ord2 [place]% 7.5 % 01/26/2016 Cbc With Differential Ord2 MCHC 34.0 pg 01/26/2016 Cbc With Differential Ord2 Eos% 2.3 % 01/26/2016 Cbc With Differential Ord2 PLT 299 K/ul 01/26/2016 Cbc With Differential Ord2 Baso% 0.3 % 01/26/2016 Cbc With Differential Ord2 RDW 12.9 % 01/26/2016 Cbc With Differential Ord2 Neut ABS# 7.25 K/ul 01/26/2016 Cbc With Differential Ord2 Lymph ABS# 3.08 K/ul 01/26/2016 Cbc With Differential Ord2 [place] ABS# 0.9 K/ul 01/26/2016 Cbc With Differential Ord2 Eos ABS# 0.3 K/ul 01/26/2016 Cbc With Differential Ord2 Baso ABS# 0.0 K/ul 01/26/2016 Cbc With Differential Ord2 New Analyzer Notice Please note new ref ranges starting 12-10-2015 due to implemntation of new five part differential hematolgy analyzer. 01/26/2016 Lipid Ord30 CHOL 180 mg/dL 01/26/2016 Lipid Ord30 HDL 57.0 mg/dl 01/26/2016 Lipid Ord30 TRIG 245 mg/dL 01/26/2016 Lipid Ord30 LDL 74 mg/dL 01/26/2016 Lipid Ord30 C/HDL 3.2 Ratio 01/26/2016 Tsh Ord6 hTSH II 2.28 uIU/mL 01/26/2016 Comp Metabolic Ljs530 NA 140 mEq/L 01/26/2016 Comp Metabolic Wrr731 K 3.9 mEq/L 01/26/2016 Comp Metabolic Blg672 CL 104 mEq/L 01/26/2016 Comp Metabolic Pmf914 CO2 25.0 mEq/L 01/26/2016 Comp Metabolic Mfw109 ANION GAP 15 01/26/2016 Comp Metabolic Vfn409 GLUCOSE 112 mg/dL 01/26/2016 Comp Metabolic Ebt184 Creat 0.7 mg/dL 01/26/2016 Comp Metabolic Nxy455 eGFR 96 ml/min/1.73m2 01/26/2016 Comp Metabolic Eua536 BUN 8 mg/dL 01/26/2016 Comp Metabolic Hji642 B/C Ratio 11.6 Ratio 01/26/2016 Comp Metabolic Jjt752 CALCIUM 10.4 mg/dL 01/26/2016 Comp Metabolic Tnl601 ALK PHOS 59 U/L 01/26/2016 Comp Metabolic Mag530 AST(SGOT) 17 U/L 01/26/2016 Comp Metabolic Qkm877 ALT(SGPT) 16 U/L 01/26/2016 Comp Metabolic Mre348 BILI T 0.4 mg/dL 01/26/2016 Comp Metabolic Lat663 ALBUMIN 4.6 g/dL 01/26/2016 Comp Metabolic Aiq139 TPRO 7.4 g/dL 01/26/2016 Comp Metabolic Gkq602 GLOB 2.8 g/dL 01/26/2016 Comp Metabolic Spo657 A/G Ratio 1.6 Ratio 01/26/2016 Comp Metabolic Wly167 Osmo 278 mOsmo 01/26/2016 Review of Systems System Result Effective Dates Constitutional No recent illness 06/12/2019 Constitutional No anorexia 06/12/2019 Constitutional No night sweats 06/12/2019 Constitutional No chills 06/12/2019 Constitutional No diaphoresis 06/12/2019 Constitutional No fatigue 06/12/2019 Constitutional No fever 06/12/2019 Constitutional insomnia 06/12/2019 Constitutional No malaise 06/12/2019 Eyes No eye discharge 06/12/2019 Eyes No eye erythema 06/12/2019 Ears/Nose/Throat/Neck No dizziness 06/12/2019 Respiratory No productive sputum 06/12/2019 Respiratory No chest congestion 06/12/2019 Respiratory No cough 06/12/2019 Gastrointestinal No abdominal pain 06/12/2019 Gastrointestinal No diarrhea 06/12/2019 Genitourinary/Nephrology No dysuria 06/12/2019 Musculoskeletal No joint complaint 06/12/2019 Dermatologic No rash 06/12/2019 Dermatologic No sores 06/12/2019 Constitutional No weight loss 06/12/2019 Constitutional No weight gain 06/12/2019 Cardiovascular No chest pain/pressure 06/12/2019 Cardiovascular No dyspnea 06/12/2019 Cardiovascular No edema 06/12/2019 Gastrointestinal constipation 06/12/2019 Neurologic No alteration of consciousness 06/12/2019 Dermatologic No mole change 06/12/2019 Constitutional recent illness 03/02/2019 Constitutional No anorexia 03/02/2019 Constitutional No night sweats 03/02/2019 Constitutional No chills 03/02/2019 Constitutional No diaphoresis 03/02/2019 Constitutional No fatigue 03/02/2019 Constitutional No fever 03/02/2019 Constitutional No insomnia 03/02/2019 Constitutional No malaise 03/02/2019 Constitutional No weight loss 03/02/2019 Constitutional No weight gain 03/02/2019 Ears/Nose/Throat/Neck No dizziness 03/02/2019 Ears/Nose/Throat/Neck headache 03/02/2019 Ears/Nose/Throat/Neck nasal allergies 03/02/2019 Ears/Nose/Throat/Neck nasal discharge 03/02/2019 Ears/Nose/Throat/Neck otalgia 03/02/2019 Ears/Nose/Throat/Neck sinus congestion 03/02/2019 Ears/Nose/Throat/Neck sore throat 03/02/2019 Respiratory No cough 03/02/2019 Cardiovascular No chest pain/pressure 03/02/2019 Gastrointestinal No vomiting 03/02/2019 Gastrointestinal No nausea 03/02/2019 Genitourinary/Nephrology No dysuria 03/02/2019 Dermatologic No rash 03/02/2019 Constitutional No recent illness 05/19/2018 Constitutional No anorexia 05/19/2018 Constitutional No fever 05/19/2018 Eyes No eye discharge 05/19/2018 Eyes No eye erythema 05/19/2018 Ears/Nose/Throat/Neck No dizziness 05/19/2018 Ears/Nose/Throat/Neck No headache 05/19/2018 Ears/Nose/Throat/Neck No sinus congestion 05/19/2018 Respiratory No cough 05/19/2018 Musculoskeletal No joint complaint 05/19/2018 Dermatologic No rash 05/19/2018 Dermatologic No sores 05/19/2018 Constitutional No night sweats 05/19/2018 Constitutional No chills 05/19/2018 Constitutional No diaphoresis 05/19/2018 Constitutional No fatigue 05/19/2018 Constitutional No insomnia 05/19/2018 Constitutional No malaise 05/19/2018 Constitutional No weight loss 05/19/2018 Constitutional No weight gain 05/19/2018 Cardiovascular No chest pain/pressure 05/19/2018 Cardiovascular No dyspnea 05/19/2018 Cardiovascular No edema 05/19/2018 Gastrointestinal No abdominal pain 05/19/2018 Gastrointestinal No constipation 05/19/2018 Gastrointestinal No diarrhea 05/19/2018 Genitourinary/Nephrology No dysuria 05/19/2018 Neurologic No alteration of consciousness 05/19/2018 Psychiatric No anxiety 05/19/2018 Endocrine No dry or coarse skin 05/19/2018 Constitutional No recent illness 06/27/2017 Constitutional No anorexia 06/27/2017 Constitutional No night sweats 06/27/2017 Constitutional No chills 06/27/2017 Constitutional No diaphoresis 06/27/2017 Constitutional No fatigue 06/27/2017 Constitutional No fever 06/27/2017 Constitutional No insomnia 06/27/2017 Constitutional No malaise 06/27/2017 Constitutional No recent illness 04/22/2017 Constitutional No anorexia 04/22/2017 Constitutional No night sweats 04/22/2017 Constitutional No diaphoresis 04/22/2017 Constitutional No chills 04/22/2017 Constitutional No fatigue 04/22/2017 Constitutional No fever 04/22/2017 Constitutional No insomnia 04/22/2017 Constitutional No malaise 04/22/2017 Constitutional No recent illness 01/11/2017 Constitutional No anorexia 01/11/2017 Constitutional No fever 01/11/2017 Eyes eye discharge 01/11/2017 Eyes No eye erythema 01/11/2017 Eyes eyelid edema 01/11/2017 Ears/Nose/Throat/Neck No dizziness 01/11/2017 Ears/Nose/Throat/Neck No headache 01/11/2017 Ears/Nose/Throat/Neck No sinus congestion 01/11/2017 Respiratory No cough 01/11/2017 Musculoskeletal No joint complaint 01/11/2017 Dermatologic No rash 01/11/2017 Dermatologic No sores 01/11/2017 Constitutional No recent illness 12/03/2016 Constitutional No chills 12/03/2016 Constitutional No fever 12/03/2016 Eyes No eye erythema 12/03/2016 Ears/Nose/Throat/Neck nasal allergies 12/03/2016 Ears/Nose/Throat/Neck nasal discharge 12/03/2016 Ears/Nose/Throat/Neck postnasal drip 12/03/2016 Ears/Nose/Throat/Neck sinus congestion 12/03/2016 Ears/Nose/Throat/Neck dizziness 12/03/2016 Ears/Nose/Throat/Neck No otalgia 12/03/2016 Cardiovascular No chest pain/pressure 12/03/2016 Cardiovascular No dyspnea 12/03/2016 Respiratory No cough 12/03/2016 Respiratory No dyspnea 12/03/2016 Gastrointestinal No abdominal pain 12/03/2016 Musculoskeletal No joint complaint 12/03/2016 Neurologic No alteration of consciousness 12/03/2016 Neurologic No mental status change 12/03/2016 Constitutional recent illness 01/26/2016 Constitutional chills 01/26/2016 Constitutional fever 01/26/2016 Constitutional malaise 01/26/2016 Eyes No eye discharge 01/26/2016 Eyes No eye erythema 01/26/2016 Ears/Nose/Throat/Neck No dizziness 01/26/2016 Ears/Nose/Throat/Neck headache 01/26/2016 Ears/Nose/Throat/Neck nasal allergies 01/26/2016 Ears/Nose/Throat/Neck nasal discharge 01/26/2016 Ears/Nose/Throat/Neck otalgia 01/26/2016 Ears/Nose/Throat/Neck sore throat 01/26/2016 Cardiovascular No chest pain/pressure 01/26/2016 Cardiovascular No dyspnea 01/26/2016 Cardiovascular fatigue 01/26/2016 Respiratory chest congestion 01/26/2016 Respiratory cough 01/26/2016 Gastrointestinal No constipation 01/26/2016 Gastrointestinal No diarrhea 01/26/2016 Gastrointestinal No nausea 01/26/2016 Genitourinary/Nephrology No dysuria 01/26/2016 Ears/Nose/Throat/Neck facial pain 01/26/2016 Neurologic No alteration of consciousness 01/26/2016 Constitutional recent illness 12/30/2015 Constitutional No fever 12/30/2015 Constitutional No malaise 12/30/2015 Constitutional No chills 12/30/2015 Eyes No eye discharge 12/30/2015 Eyes No eye erythema 12/30/2015 Ears/Nose/Throat/Neck No dizziness 12/30/2015 Ears/Nose/Throat/Neck No headache 12/30/2015 Cardiovascular No chest pain/pressure 12/30/2015 Cardiovascular No dyspnea 12/30/2015 Cardiovascular fatigue 12/30/2015 Respiratory No chest congestion 12/30/2015 Respiratory No cough 12/30/2015 Gastrointestinal No constipation 12/30/2015 Gastrointestinal No diarrhea 12/30/2015 Gastrointestinal No nausea 12/30/2015 Genitourinary/Nephrology No dysuria 12/30/2015 Ears/Nose/Throat/Neck sore throat 12/30/2015 Ears/Nose/Throat/Neck otalgia 12/30/2015 Ears/Nose/Throat/Neck nasal allergies 12/30/2015 Ears/Nose/Throat/Neck nasal discharge 12/30/2015 Constitutional recent illness 01/09/2015 Constitutional No anorexia 01/09/2015 Constitutional No night sweats 01/09/2015 Constitutional No chills 01/09/2015 Constitutional No diaphoresis 01/09/2015 Constitutional No fatigue 01/09/2015 Constitutional fever 01/09/2015 Constitutional No insomnia 01/09/2015 Constitutional No malaise 01/09/2015 Constitutional No weight loss 01/09/2015 Constitutional No weight gain 01/09/2015 Eyes No eye discharge 01/09/2015 Eyes No eye erythema 01/09/2015 Respiratory No cough 01/09/2015 Gastrointestinal No vomiting 01/09/2015 Gastrointestinal nausea 01/09/2015 Gastrointestinal No diarrhea 01/09/2015 Gastrointestinal No constipation 01/09/2015 Genitourinary/Nephrology dysuria 01/09/2015 Genitourinary/Nephrology urinary urgency 01/09/2015 Genitourinary/Nephrology urinary frequency 01/09/2015 Musculoskeletal No joint complaint 01/09/2015 Dermatologic No rash 01/09/2015 Dermatologic No sores 01/09/2015 Constitutional No recent illness 02/18/2014 Constitutional No anorexia 02/18/2014 Constitutional No night sweats 02/18/2014 Constitutional No chills 02/18/2014 Constitutional No diaphoresis 02/18/2014 Constitutional fatigue 02/18/2014 Constitutional No fever 02/18/2014 Constitutional No insomnia 02/18/2014 Constitutional No malaise 02/18/2014 Eyes No eye discharge 02/18/2014 Eyes No eye erythema 02/18/2014 Ears/Nose/Throat/Neck No dizziness 02/18/2014 Ears/Nose/Throat/Neck headache 02/18/2014 Ears/Nose/Throat/Neck No nasal discharge 02/18/2014 Cardiovascular No chest pain/pressure 02/18/2014 Cardiovascular No dyspnea 02/18/2014 Cardiovascular No edema 02/18/2014 Respiratory No productive sputum 02/18/2014 Respiratory No chest congestion 02/18/2014 Respiratory No cough 02/18/2014 Genitourinary/Nephrology No dysuria 02/18/2014 Musculoskeletal No joint complaint 02/18/2014 Dermatologic No sores 02/18/2014 Dermatologic No rash 02/18/2014 Constitutional No recent illness 06/28/2013 Constitutional No anorexia 06/28/2013 Constitutional No night sweats 06/28/2013 Constitutional No chills 06/28/2013 Constitutional No diaphoresis 06/28/2013 Constitutional No fatigue 06/28/2013 Constitutional No fever 06/28/2013 Constitutional No insomnia 06/28/2013 Constitutional No malaise 06/28/2013 Eyes No eye discharge 06/28/2013 Eyes No eye erythema 06/28/2013 Ears/Nose/Throat/Neck No dizziness 06/28/2013 Respiratory No productive sputum 06/28/2013 Respiratory No chest congestion 06/28/2013 Respiratory No cough 06/28/2013 Gastrointestinal No abdominal pain 06/28/2013 Gastrointestinal No diarrhea 06/28/2013 Genitourinary/Nephrology No dysuria 06/28/2013 Musculoskeletal No joint complaint 06/28/2013 Dermatologic No sores 06/28/2013 Dermatologic No rash 06/28/2013 Constitutional recent illness 01/05/2013 Constitutional No anorexia 01/05/2013 Constitutional No night sweats 01/05/2013 Constitutional chills 01/05/2013 Constitutional diaphoresis 01/05/2013 Constitutional fatigue 01/05/2013 Constitutional fever 01/05/2013 Constitutional No insomnia 01/05/2013 Eyes No eye discharge 01/05/2013 Eyes No eye erythema 01/05/2013 Cardiovascular No chest pain/pressure 01/05/2013 Respiratory No productive sputum 01/05/2013 Respiratory No chest congestion 01/05/2013 Respiratory cough 01/05/2013 Gastrointestinal No vomiting 01/05/2013 Gastrointestinal No nausea 01/05/2013 Gastrointestinal No abdominal pain 01/05/2013 Gastrointestinal No constipation 01/05/2013 Gastrointestinal No diarrhea 01/05/2013 Genitourinary/Nephrology No dysuria 01/05/2013 Musculoskeletal No joint complaint 01/05/2013 Dermatologic No sores 01/05/2013 Dermatologic No rash 01/05/2013 Neurologic No alteration of consciousness 01/05/2013 Constitutional No recent illness 11/01/2012 Constitutional No anorexia 11/01/2012 Constitutional No night sweats 11/01/2012 Constitutional No chills 11/01/2012 Constitutional No diaphoresis 11/01/2012 Constitutional No fatigue 11/01/2012 Constitutional No fever 11/01/2012 Constitutional No insomnia 11/01/2012 Constitutional No malaise 11/01/2012 Eyes No eye discharge 11/01/2012 Eyes No eye erythema 11/01/2012 Ears/Nose/Throat/Neck No dizziness 11/01/2012 Ears/Nose/Throat/Neck No headache 11/01/2012 Respiratory No cough 11/01/2012 Gastrointestinal No abdominal pain 11/01/2012 Gastrointestinal No constipation 11/01/2012 Gastrointestinal No diarrhea 11/01/2012 Gastrointestinal No nausea 11/01/2012 Gastrointestinal No vomiting 11/01/2012 Constitutional No recent illness 08/17/2012 Constitutional No anorexia 08/17/2012 Constitutional No night sweats 08/17/2012 Constitutional No chills 08/17/2012 Constitutional No diaphoresis 08/17/2012 Constitutional No fatigue 08/17/2012 Constitutional No fever 08/17/2012 Constitutional No insomnia 08/17/2012 Eyes No eye discharge 08/17/2012 Eyes No eye erythema 08/17/2012 Eyes No vision change 08/17/2012 Cardiovascular No chest pain/pressure 08/17/2012 Cardiovascular No fatigue 08/17/2012 Cardiovascular No dyspnea 08/17/2012 Respiratory No productive sputum 08/17/2012 Respiratory No cough 08/17/2012 Respiratory No chest congestion 08/17/2012 Gastrointestinal No abdominal pain 08/17/2012 Gastrointestinal No constipation 08/17/2012 Gastrointestinal No diarrhea 08/17/2012 Gastrointestinal No vomiting 08/17/2012 Gastrointestinal No nausea 08/17/2012 Genitourinary/Nephrology No dysuria 08/17/2012 Musculoskeletal No joint complaint 08/17/2012 Dermatologic No rash 08/17/2012 Dermatologic No sores 08/17/2012 Eyes No vision change 02/14/2012 Ears/Nose/Throat/Neck No dizziness 02/14/2012 Ears/Nose/Throat/Neck No facial pain 02/14/2012 Ears/Nose/Throat/Neck No facial swelling 02/14/2012 Ears/Nose/Throat/Neck No hoarseness 02/14/2012 Ears/Nose/Throat/Neck nasal allergies 02/14/2012 Ears/Nose/Throat/Neck No nasal discharge 02/14/2012 Ears/Nose/Throat/Neck No oral lesion 02/14/2012 Ears/Nose/Throat/Neck No oral pain 02/14/2012 Ears/Nose/Throat/Neck No otitis media 02/14/2012 Respiratory No dyspnea 02/14/2012 Ears/Nose/Throat/Neck No sinus congestion 02/14/2012 Ears/Nose/Throat/Neck sore throat 02/14/2012 Cardiovascular No dyspnea 02/14/2012 Respiratory No productive sputum 02/14/2012 Respiratory No chest congestion 02/14/2012 Respiratory No cough 02/14/2012 Gastrointestinal No abdominal pain 02/14/2012 Dermatologic No rash 02/14/2012 Constitutional No fatigue 02/14/2012 Constitutional No fever 02/14/2012 Ears/Nose/Throat/Neck No headache 02/14/2012 Cardiovascular No chest pain/pressure 02/14/2012 Gastrointestinal No constipation 02/14/2012 Gastrointestinal No diarrhea 02/14/2012 Gastrointestinal No vomiting 02/14/2012 Gastrointestinal No nausea 02/14/2012 Constitutional No recent illness 02/14/2012 Constitutional No chills 02/14/2012 Constitutional No insomnia 02/14/2012 Constitutional No malaise 02/14/2012 Eyes No eye discharge 02/14/2012 Eyes No eye erythema 02/14/2012 Constitutional No fatigue 11/18/2011 Constitutional No fever 11/18/2011 Constitutional No insomnia 11/18/2011 Constitutional No recent illness 11/18/2011 Eyes No eye discharge 11/18/2011 Eyes No eye erythema 11/18/2011 Ears/Nose/Throat/Neck No headache 11/18/2011 Cardiovascular No chest pain/pressure 11/18/2011 Cardiovascular No edema 11/18/2011 Cardiovascular No near-syncope/dizziness 11/18/2011 Cardiovascular No syncope 11/18/2011 Respiratory No chest congestion 11/18/2011 Respiratory No chest tightness 11/18/2011 Respiratory No cough 11/18/2011 Respiratory No dyspnea 11/18/2011 Respiratory No productive sputum 11/18/2011 Gastrointestinal No abdominal pain 11/18/2011 Gastrointestinal No constipation 11/18/2011 Gastrointestinal No diarrhea 11/18/2011 Genitourinary/Nephrology No breast complaint 11/18/2011 Genitourinary/Nephrology No dysuria 11/18/2011 Genitourinary/Nephrology No hematuria 11/18/2011 Genitourinary/Nephrology No urinary frequency 11/18/2011 Genitourinary/Nephrology No urinary incontinence 11/18/2011 Genitourinary/Nephrology No urinary urgency 11/18/2011 Genitourinary/Nephrology No vaginal discharge 11/18/2011 Genitourinary/Nephrology No menopausal symptoms 11/18/2011 Genitourinary/Nephrology No nocturia 11/18/2011 Genitourinary/Nephrology No Pap smear abnormality 11/18/2011 Musculoskeletal No joint complaint 11/18/2011 Neurologic No alteration of consciousness 11/18/2011 Constitutional No recent illness 10/20/2011 Constitutional No chills 10/20/2011 Constitutional No fatigue 10/20/2011 Constitutional No fever 10/20/2011 Constitutional No insomnia 10/20/2011 Constitutional No malaise 10/20/2011 Eyes No eye discharge 10/20/2011 Eyes No eye erythema 10/20/2011 Ears/Nose/Throat/Neck No facial swelling 10/20/2011 Ears/Nose/Throat/Neck No facial pain 10/20/2011 Ears/Nose/Throat/Neck No headache 10/20/2011 Ears/Nose/Throat/Neck No hoarseness 10/20/2011 Ears/Nose/Throat/Neck nasal allergies 10/20/2011 Ears/Nose/Throat/Neck No nasal discharge 10/20/2011 Ears/Nose/Throat/Neck sore throat 10/20/2011 Ears/Nose/Throat/Neck No sinus congestion 10/20/2011 Ears/Nose/Throat/Neck No otitis media 10/20/2011 Ears/Nose/Throat/Neck No oral pain 10/20/2011 Ears/Nose/Throat/Neck No oral lesion 10/20/2011 Cardiovascular No chest pain/pressure 10/20/2011 Cardiovascular No dyspnea 10/20/2011 Respiratory No productive sputum 10/20/2011 Respiratory No chest congestion 10/20/2011 Respiratory No cough 10/20/2011 Gastrointestinal No nausea 10/20/2011 Gastrointestinal No vomiting 10/20/2011 Gastrointestinal No abdominal pain 10/20/2011 Gastrointestinal No diarrhea 10/20/2011 Gastrointestinal No constipation 10/20/2011 Dermatologic No rash 10/20/2011 Physical Exam Exam Name System Name Item Name Status Result Effective Dates Notes Full Exam - General Constitutional general appearance Overall: well nourished 06/12/2019 None Full Exam - General Constitutional general appearance Overall: well developed 06/12/2019 None Full Exam - General Constitutional general appearance Overall: in no acute distress 06/12/2019 None Full Exam - General Eyes conjunctiva/eyelids Overall: conjunctiva clear 06/12/2019 None Full Exam - General Eyes pupils and irises Overall: pupils equal, round, reactive to light and accomodation 06/12/2019 None Full Exam - General Respiratory auscultation Overall: breath sounds clear bilaterally 06/12/2019 None Full Exam - General Respiratory respiratory effort/rhythm Overall: no retractions 06/12/2019 None Full Exam - General Respiratory respiratory effort/rhythm Overall: normal rate 06/12/2019 None Full Exam - General Cardiovascular auscultation of heart Overall: regular rate 06/12/2019 None Full Exam - General Cardiovascular auscultation of heart Overall: normal heart sounds 06/12/2019 None Full Exam - General Cardiovascular auscultation of heart Overall: no murmurs 06/12/2019 None Full Exam - General Psychiatric orientation/consciousness Overall: oriented to person, place and time 06/12/2019 None Full Exam - General Neurologic cranial nerves Overall: cranial nerves 2-12 grossly intact 06/12/2019 None Full Exam - General Integument inspection of skin Overall: no rash, lesions 06/12/2019 None Full Exam - General Musculoskeletal gait and station Overall: normal gait 06/12/2019 None Full Exam - General Musculoskeletal gait and station Overall: normal station 06/12/2019 None Full Exam - General Musculoskeletal head and neck Overall: head atraumatic 06/12/2019 None Full Exam - General Lymphatic neck nodes Overall: anterior cervical chain benign 06/12/2019 None Full Exam - General Lymphatic neck nodes Overall: posterior cervical chain benign 06/12/2019 None Full Exam - General Abdomen abdominal exam Overall: no tenderness 06/12/2019 None Full Exam - General Abdomen abdominal exam Overall: normal bowel sounds 06/12/2019 None Full Exam - General Ears/Nose/Throat otoscopic exam Overall: external auditory canals clear 06/12/2019 None Full Exam - General Ears/Nose/Throat otoscopic exam Overall: tympanic membranes clear 06/12/2019 None Full Exam - General Ears/Nose/Throat oral cavity/pharynx/larynx Overall: oral mucosa clear 06/12/2019 None Full Exam - General Genitourinary uterus Overall: surgically absent 06/12/2019 None Full Exam - General Genitourinary labia and vagina Overall: normal hair distribution 06/12/2019 None Full Exam - General Genitourinary labia and vagina Overall: no lesions 06/12/2019 None Full Exam - General Genitourinary adnexa/parametria Overall: no tenderness 06/12/2019 None Full Exam - General Genitourinary urethra Overall: no masses 06/12/2019 None Full Exam - General Genitourinary bladder Overall: no tenderness 06/12/2019 None Full Exam - General Genitourinary cervix Inspection: surgically absent 06/12/2019 None Full Exam - ENT Constitutional general appearance Overall: well nourished 03/02/2019 None Full Exam - ENT Constitutional general appearance Overall: well developed 03/02/2019 None Full Exam - ENT Constitutional general appearance Overall: in no acute distress 03/02/2019 None Full Exam - ENT Neurologic orientation Overall: oriented to person, place and time 03/02/2019 None Full Exam - ENT Integument inspection of skin Overall: no rash, lesions 03/02/2019 None Full Exam - ENT Lymphatic palpation of lymph nodes Overall: anterior cervical chain benign 03/02/2019 None Full Exam - ENT Lymphatic palpation of lymph nodes Overall: posterior cervical chain benign 03/02/2019 None Full Exam - ENT Cardiovascular auscultation of heart Overall: regular rate 03/02/2019 None Full Exam - ENT Cardiovascular auscultation of heart Overall: normal heart sounds 03/02/2019 None Full Exam - ENT Cardiovascular auscultation of heart Overall: no murmurs 03/02/2019 None Full Exam - ENT Respiratory inspection Overall: normal rate 03/02/2019 None Full Exam - ENT Respiratory inspection Overall: no retractions 03/02/2019 None Full Exam - ENT Respiratory auscultation Overall: breath sounds clear bilaterally 03/02/2019 None Full Exam - ENT Face and Head palpation Overall: no sinus tenderness 03/02/2019 None Full Exam - ENT Ears/Nose/Throat otoscopic exam Overall: external auditory canals normal 03/02/2019 None Full Exam - ENT Ears/Nose/Throat otoscopic exam Overall: tympanic membranes normal 03/02/2019 None Full Exam - ENT Ears/Nose/Throat oropharynx Overall: oral mucosa clear 03/02/2019 None Full Exam - General 1994 Constitutional general appearance Overall: well developed 05/19/2018 None Full Exam - General 1994 Constitutional general appearance Overall: in no acute distress 05/19/2018 None Full Exam - General 1994 Constitutional general appearance Overall: well nourished 05/19/2018 None Full Exam - General 1994 Eyes conjunctiva/eyelids Overall: conjunctiva clear 05/19/2018 None Full Exam - General 1994 Eyes conjunctiva/eyelids Eyelid: edema 05/19/2018 None Full Exam - General 1994 Eyes pupils and irises Overall: pupils equal, round, reactive to light and accomodation 05/19/2018 None Full Exam - General 1994 Ears/Nose/Throat otoscopic exam Overall: external auditory canals clear 05/19/2018 None Full Exam - General 1994 Ears/Nose/Throat otoscopic exam Overall: tympanic membranes clear 05/19/2018 None Full Exam - General 1994 Ears/Nose/Throat oral cavity/pharynx/larynx Overall: oral mucosa clear 05/19/2018 None Full Exam - General 1994 Respiratory auscultation Overall: breath sounds clear bilaterally 05/19/2018 None Full Exam - General 1994 Respiratory respiratory effort/rhythm Overall: no retractions 05/19/2018 None Full Exam - General 1994 Respiratory respiratory effort/rhythm Overall: normal rate 05/19/2018 None Full Exam - General 1994 Cardiovascular auscultation of heart Overall: regular rate 05/19/2018 None Full Exam - General 1994 Cardiovascular auscultation of heart Overall: normal heart sounds 05/19/2018 None Full Exam - General 1994 Lymphatic neck nodes Overall: anterior cervical chain benign 05/19/2018 None Full Exam - General 1994 Lymphatic neck nodes Overall: posterior cervical chain benign 05/19/2018 None Full Exam - General 1994 Integument inspection of skin Overall: few scattered moles, no gross abnormalities 05/19/2018 None Full Exam - General 1994 Neurologic cranial nerves Overall: crainial nerves 2 - 12 grossly intact 05/19/2018 None Full Exam - General 1994 Psychiatric orientation/consciousness Overall: oriented to person, place and time 05/19/2018 None Full Exam - General 1994 Abdomen abdominal exam Overall: no tenderness 05/19/2018 None Full Exam - General 1994 Abdomen abdominal exam Overall: normal bowel sounds 05/19/2018 None Full Exam - Cardiology Constitutional general appearance Overall: well nourished 06/27/2017 None Full Exam - Cardiology Constitutional general appearance Overall: well developed 06/27/2017 None Full Exam - Cardiology Constitutional general appearance Overall: in no acute distress 06/27/2017 None Full Exam - Cardiology Respiratory respiratory effort/rhythm Overall: no retractions 06/27/2017 None Full Exam - Cardiology Respiratory respiratory effort/rhythm Overall: normal rate 06/27/2017 None Full Exam - Cardiology Respiratory auscultation Overall: breath sounds clear bilaterally 06/27/2017 None Full Exam - Cardiology Cardiovascular auscultation of heart Overall: regular rate 06/27/2017 None Full Exam - Cardiology Cardiovascular auscultation of heart Overall: normal heart sounds 06/27/2017 None Full Exam - Cardiology Cardiovascular auscultation of heart Overall: no murmurs 06/27/2017 None Full Exam - General 1994 Constitutional general appearance Overall: well developed 01/11/2017 None Full Exam - General 1994 Constitutional general appearance Overall: in no acute distress 01/11/2017 None Full Exam - General 1994 Constitutional general appearance Overall: well nourished 01/11/2017 None Full Exam - General 1994 Psychiatric orientation/consciousness Overall: oriented to person, place and time 01/11/2017 None Full Exam - General 1994 Neurologic cranial nerves Overall: crainial nerves 2 - 12 grossly intact 01/11/2017 None Full Exam - General 1994 Integument inspection of skin Overall: few scattered moles, no gross abnormalities 01/11/2017 None Full Exam - General 1994 Lymphatic neck nodes Overall: anterior cervical chain benign 01/11/2017 None Full Exam - General 1994 Lymphatic neck nodes Overall: posterior cervical chain benign 01/11/2017 None Full Exam - General 1994 Cardiovascular auscultation of heart Overall: regular rate 01/11/2017 None Full Exam - General 1994 Cardiovascular auscultation of heart Overall: normal heart sounds 01/11/2017 None Full Exam - General 1994 Respiratory auscultation Overall: breath sounds clear bilaterally 01/11/2017 None Full Exam - General 1994 Respiratory respiratory effort/rhythm Overall: normal rate 01/11/2017 None Full Exam - General 1994 Respiratory respiratory effort/rhythm Overall: no retractions 01/11/2017 None Full Exam - General 1994 Ears/Nose/Throat otoscopic exam Overall: external auditory canals clear 01/11/2017 None Full Exam - General 1994 Ears/Nose/Throat otoscopic exam Overall: tympanic membranes clear 01/11/2017 None Full Exam - General 1994 Ears/Nose/Throat oral cavity/pharynx/larynx Overall: oral mucosa clear 01/11/2017 None Full Exam - General 1994 Eyes conjunctiva/eyelids Overall: conjunctiva clear 01/11/2017 None Full Exam - General 1994 Eyes pupils and irises Overall: pupils equal, round, reactive to light and accomodation 01/11/2017 None Full Exam - General 1994 Eyes conjunctiva/eyelids Eyelid: edema 01/11/2017 None Full Exam - General 1994 Constitutional general appearance Overall: well developed 12/03/2016 None Full Exam - General 1994 Constitutional general appearance Overall: in no acute distress 12/03/2016 None Full Exam - General 1994 Constitutional general appearance Overall: well nourished 12/03/2016 None Full Exam - General 1994 Eyes conjunctiva/eyelids Overall: conjunctiva clear 12/03/2016 None Full Exam - General 1994 Eyes conjunctiva/eyelids Overall: eyelids normal 12/03/2016 None Full Exam - General 1994 Eyes pupils and irises Overall: pupils equal, round, reactive to light and accomodation 12/03/2016 None Full Exam - General 1994 Ears/Nose/Throat lips/teeth/gingiva Overall: benign lips 12/03/2016 None Full Exam - General 1994 Ears/Nose/Throat oral cavity/pharynx/larynx Overall: oral mucosa clear 12/03/2016 None Full Exam - General 1994 Ears/Nose/Throat oral cavity/pharynx/larynx Posterior Pharynx: clear post nasal drainage 12/03/2016 None Full Exam - General 1994 Ears/Nose/Throat otoscopic exam Overall: external auditory canals clear 12/03/2016 None Full Exam - General 1994 Ears/Nose/Throat otoscopic exam Tympanic membrane: air-fluid level 12/03/2016 None Full Exam - General 1994 Respiratory auscultation Overall: breath sounds clear bilaterally 12/03/2016 None Full Exam - General 1994 Respiratory respiratory effort/rhythm Overall: no retractions 12/03/2016 None Full Exam - General 1994 Respiratory respiratory effort/rhythm Overall: normal rate 12/03/2016 None Full Exam - General 1994 Cardiovascular auscultation of heart Overall: regular rate 12/03/2016 None Full Exam - General 1994 Cardiovascular auscultation of heart Overall: normal heart sounds 12/03/2016 None Full Exam - General 1994 Lymphatic neck nodes Overall: posterior cervical chain benign 12/03/2016 None Full Exam - General 1994 Lymphatic neck nodes Overall: anterior cervical chain benign 12/03/2016 None Full Exam - General 1994 Neurologic cranial nerves Overall: crainial nerves 2 - 12 grossly intact 12/03/2016 None Full Exam - General 1994 Psychiatric orientation/consciousness Overall: oriented to person, place and time 12/03/2016 None Full Exam - General 1994 Psychiatric mood and affect Overall: normal mood and affect 12/03/2016 None Full Exam - General 1994 Psychiatric appearance Overall: well-groomed, good eye contact 12/03/2016 None Full Exam - General Constitutional general appearance Overall: well nourished 01/26/2016 None Full Exam - General Constitutional general appearance Overall: well developed 01/26/2016 None Full Exam - General Constitutional general appearance Overall: in no acute distress 01/26/2016 None Full Exam - General Eyes conjunctiva/eyelids Overall: conjunctiva clear 01/26/2016 None Full Exam - General Eyes pupils and irises Overall: pupils equal, round, reactive to light and accomodation 01/26/2016 None Full Exam - General Ears/Nose/Throat otoscopic exam Overall: external auditory canals clear 01/26/2016 None Full Exam - General Ears/Nose/Throat otoscopic exam Left tympanic membrane: air-fluid level 01/26/2016 None Full Exam - General Ears/Nose/Throat otoscopic exam Right tympanic membrane: air-fluid level 01/26/2016 None Full Exam - General Ears/Nose/Throat internal nose Sinus tenderness: left maxillary 01/26/2016 None Full Exam - General Ears/Nose/Throat internal nose Sinus tenderness: right maxillary 01/26/2016 None Full Exam - General Ears/Nose/Throat oral cavity/pharynx/larynx Oropharynx: erythema 01/26/2016 None Full Exam - General Respiratory auscultation Overall: breath sounds clear bilaterally 01/26/2016 None Full Exam - General Respiratory respiratory effort/rhythm Overall: no retractions 01/26/2016 None Full Exam - General Respiratory respiratory effort/rhythm Overall: normal rate 01/26/2016 None Full Exam - General Cardiovascular auscultation of heart Overall: regular rate 01/26/2016 None Full Exam - General Cardiovascular auscultation of heart Overall: normal heart sounds 01/26/2016 None Full Exam - General Abdomen abdominal exam Overall: normal bowel sounds 01/26/2016 None Full Exam - General Neurologic gait Overall: no ataxia, no unsteadiness 01/26/2016 None Full Exam - General Neurologic cranial nerves Overall: cranial nerves 2-12 grossly intact 01/26/2016 None Full Exam - General Psychiatric orientation/consciousness Overall: oriented to person, place and time 01/26/2016 None Full Exam - General Psychiatric mood and affect Overall: normal mood and affect 01/26/2016 None Full Exam - General Psychiatric appearance Overall: well-groomed, good eye contact 01/26/2016 None Full Exam - General Ears/Nose/Throat internal nose Sinus tenderness: right frontal 01/26/2016 None Full Exam - General Ears/Nose/Throat internal nose Sinus tenderness: left frontal 01/26/2016 None Full Exam - General Ears/Nose/Throat oral cavity/pharynx/larynx Posterior Pharynx: clear post nasal drainage 01/26/2016 None Full Exam - General Constitutional general appearance Overall: well nourished 12/30/2015 None Full Exam - General Constitutional general appearance Overall: well developed 12/30/2015 None Full Exam - General Constitutional general appearance Overall: in no acute distress 12/30/2015 None Full Exam - General Eyes conjunctiva/eyelids Overall: conjunctiva clear 12/30/2015 None Full Exam - General Eyes pupils and irises Overall: pupils equal, round, reactive to light and accomodation 12/30/2015 None Full Exam - General Respiratory respiratory effort/rhythm Overall: no retractions 12/30/2015 None Full Exam - General Respiratory respiratory effort/rhythm Overall: normal rate 12/30/2015 None Full Exam - General Cardiovascular auscultation of heart Overall: regular rate 12/30/2015 None Full Exam - General Cardiovascular auscultation of heart Overall: normal heart sounds 12/30/2015 None Full Exam - General Abdomen abdominal exam Overall: normal bowel sounds 12/30/2015 None Full Exam - General Psychiatric orientation/consciousness Overall: oriented to person, place and time 12/30/2015 None Full Exam - General Ears/Nose/Throat otoscopic exam Overall: external auditory canals clear 12/30/2015 None Full Exam - General Ears/Nose/Throat otoscopic exam Left tympanic membrane: air-fluid level 12/30/2015 None Full Exam - General Ears/Nose/Throat otoscopic exam Right tympanic membrane: air-fluid level 12/30/2015 None Full Exam - General Ears/Nose/Throat internal nose Sinus tenderness: left maxillary 12/30/2015 None Full Exam - General Ears/Nose/Throat internal nose Sinus tenderness: right maxillary 12/30/2015 None Full Exam - General Ears/Nose/Throat oral cavity/pharynx/larynx Posterior Pharynx: purulent post nasal drainage 12/30/2015 None Full Exam - General Ears/Nose/Throat oral cavity/pharynx/larynx Left tonsil: enlarged 12/30/2015 None Full Exam - General Ears/Nose/Throat oral cavity/pharynx/larynx Left tonsil: 2+ size 12/30/2015 None Full Exam - General Ears/Nose/Throat oral cavity/pharynx/larynx Left tonsil: exudate 12/30/2015 None Full Exam - General Ears/Nose/Throat oral cavity/pharynx/larynx Right tonsil: enlarged 12/30/2015 None Full Exam - General Ears/Nose/Throat oral cavity/pharynx/larynx Right tonsil: exudate 12/30/2015 None Full Exam - General Ears/Nose/Throat oral cavity/pharynx/larynx Right tonsil: erythematous 12/30/2015 None Full Exam - General Ears/Nose/Throat oral cavity/pharynx/larynx Left tonsil: erythematous 12/30/2015 None Full Exam - General Ears/Nose/Throat oral cavity/pharynx/larynx Right tonsil: 2+ size 12/30/2015 None Full Exam - General Ears/Nose/Throat oral cavity/pharynx/larynx Oropharynx: erythema 12/30/2015 None Full Exam - General Respiratory auscultation Right lower lung field: expiratory wheezes 12/30/2015 None Full Exam - General Respiratory auscultation Left lower lung field: expiratory wheezes 12/30/2015 None Full Exam - General Respiratory auscultation Overall: breath sounds clear bilaterally 12/30/2015 None Full Exam - General Neurologic gait Overall: no ataxia, no unsteadiness 12/30/2015 None Full Exam - General Neurologic cranial nerves Overall: cranial nerves 2-12 grossly intact 12/30/2015 None Full Exam - General Psychiatric mood and affect Overall: normal mood and affect 12/30/2015 None Full Exam - General Psychiatric appearance Overall: well-groomed, good eye contact 12/30/2015 None Full Exam - General Constitutional general appearance Overall: well nourished 01/09/2015 None Full Exam - General Constitutional general appearance Overall: well developed 01/09/2015 None Full Exam - General Constitutional general appearance Overall: in no acute distress 01/09/2015 None Full Exam - General Eyes conjunctiva/eyelids Overall: conjunctiva clear 01/09/2015 None Full Exam - General Eyes pupils and irises Overall: pupils equal, round, reactive to light and accomodation 01/09/2015 None Full Exam - General Respiratory auscultation Overall: breath sounds clear bilaterally 01/09/2015 None Full Exam - General Respiratory respiratory effort/rhythm Overall: no retractions 01/09/2015 None Full Exam - General Respiratory respiratory effort/rhythm Overall: normal rate 01/09/2015 None Full Exam - General Cardiovascular auscultation of heart Overall: regular rate 01/09/2015 None Full Exam - General Cardiovascular auscultation of heart Overall: normal heart sounds 01/09/2015 None Full Exam - General Cardiovascular auscultation of heart Overall: no murmurs 01/09/2015 None Full Exam - General Abdomen abdominal exam Overall: normal bowel sounds 01/09/2015 None Full Exam - General Neurologic deep tendon reflexes Overall: deep tendon reflexes intact 01/09/2015 None Full Exam - General Psychiatric orientation/consciousness Overall: oriented to person, place and time 01/09/2015 None Full Exam - General Constitutional general appearance Overall: well nourished 02/18/2014 None Full Exam - General Constitutional general appearance Overall: well developed 02/18/2014 None Full Exam - General Constitutional general appearance Overall: in no acute distress 02/18/2014 None Full Exam - General Eyes conjunctiva/eyelids Overall: conjunctiva clear 02/18/2014 None Full Exam - General Eyes pupils and irises Overall: pupils equal, round, reactive to light and accomodation 02/18/2014 None Full Exam - General Respiratory auscultation Overall: breath sounds clear bilaterally 02/18/2014 None Full Exam - General Respiratory respiratory effort/rhythm Overall: no retractions 02/18/2014 None Full Exam - General Respiratory respiratory effort/rhythm Overall: normal rate 02/18/2014 None Full Exam - General Cardiovascular auscultation of heart Overall: regular rate 02/18/2014 None Full Exam - General Cardiovascular auscultation of heart Overall: normal heart sounds 02/18/2014 None Full Exam - General Cardiovascular auscultation of heart Overall: no murmurs 02/18/2014 None Full Exam - General Psychiatric orientation/consciousness Overall: oriented to person, place and time 02/18/2014 None Full Exam - General Abdomen abdominal exam Overall: normal bowel sounds 02/18/2014 None Full Exam - General Abdomen abdominal exam Right lower quadrant: dull pain 02/18/2014 None Full Exam - General Lymphatic neck nodes Overall: anterior cervical chain benign 02/18/2014 None Full Exam - General Lymphatic neck nodes Overall: posterior cervical chain benign 02/18/2014 None Full Exam - General Ears/Nose/Throat otoscopic exam Overall: external auditory canals clear 02/18/2014 None Full Exam - General Ears/Nose/Throat otoscopic exam Overall: tympanic membranes clear 02/18/2014 None Full Exam - General Ears/Nose/Throat oral cavity/pharynx/larynx Overall: oral mucosa clear 02/18/2014 None Full Exam - General Neurologic deep tendon reflexes Overall: deep tendon reflexes intact 02/18/2014 None Full Exam - General Musculoskeletal digits and nails Overall: no clubbing 02/18/2014 None Full Exam - General Musculoskeletal digits and nails Overall: digits benign 02/18/2014 None Full Exam - General Constitutional general appearance Overall: well nourished 06/28/2013 None Full Exam - General Constitutional general appearance Overall: well developed 06/28/2013 None Full Exam - General Constitutional general appearance Overall: in no acute distress 06/28/2013 None Full Exam - General Eyes conjunctiva/eyelids Overall: conjunctiva clear 06/28/2013 None Full Exam - General Eyes pupils and irises Overall: pupils equal, round, reactive to light and accomodation 06/28/2013 None Full Exam - General Respiratory auscultation Overall: breath sounds clear bilaterally 06/28/2013 None Full Exam - General Respiratory respiratory effort/rhythm Overall: no retractions 06/28/2013 None Full Exam - General Respiratory respiratory effort/rhythm Overall: normal rate 06/28/2013 None Full Exam - General Cardiovascular auscultation of heart Overall: regular rate 06/28/2013 None Full Exam - General Cardiovascular auscultation of heart Overall: normal heart sounds 06/28/2013 None Full Exam - General Cardiovascular auscultation of heart Overall: no murmurs 06/28/2013 None Full Exam - General Psychiatric orientation/consciousness Overall: oriented to person, place and time 06/28/2013 None Full Exam - ENT Constitutional general appearance Overall: well nourished 01/05/2013 None Full Exam - ENT Constitutional general appearance Overall: well developed 01/05/2013 None Full Exam - ENT Constitutional general appearance Overall: in no acute distress 01/05/2013 None Full Exam - ENT Neurologic orientation Overall: oriented to person, place and time 01/05/2013 None Full Exam - ENT Lymphatic palpation of lymph nodes Overall: anterior cervical chain benign 01/05/2013 None Full Exam - ENT Lymphatic palpation of lymph nodes Overall: posterior cervical chain benign 01/05/2013 None Full Exam - ENT Cardiovascular auscultation of heart Overall: regular rate 01/05/2013 None Full Exam - ENT Cardiovascular auscultation of heart Overall: normal heart sounds 01/05/2013 None Full Exam - ENT Respiratory auscultation Overall: breath sounds clear bilaterally 01/05/2013 None Full Exam - ENT Respiratory inspection Overall: no retractions 01/05/2013 None Full Exam - ENT Respiratory inspection Overall: normal rate 01/05/2013 None Full Exam - ENT Face and Head palpation Overall: no sinus tenderness 01/05/2013 None Full Exam - ENT Ears/Nose/Throat otoscopic exam Overall: external auditory canals normal 01/05/2013 None Full Exam - ENT Ears/Nose/Throat otoscopic exam Overall: tympanic membranes normal 01/05/2013 None Full Exam - ENT Ears/Nose/Throat oropharynx Posterior Pharynx: erythema 01/05/2013 None Full Exam - General Constitutional general appearance Overall: well nourished 11/01/2012 None Full Exam - General Constitutional general appearance Overall: well developed 11/01/2012 None Full Exam - General Constitutional general appearance Overall: in no acute distress 11/01/2012 None Full Exam - General Eyes conjunctiva/eyelids Overall: conjunctiva clear 11/01/2012 None Full Exam - General Eyes pupils and irises Overall: pupils equal, round, reactive to light and accomodation 11/01/2012 None Full Exam - General Respiratory auscultation Overall: breath sounds clear bilaterally 11/01/2012 None Full Exam - General Respiratory respiratory effort/rhythm Overall: no retractions 11/01/2012 None Full Exam - General Respiratory respiratory effort/rhythm Overall: normal rate 11/01/2012 None Full Exam - General Cardiovascular auscultation of heart Overall: regular rate 11/01/2012 None Full Exam - General Cardiovascular auscultation of heart Overall: normal heart sounds 11/01/2012 None Full Exam - General Cardiovascular auscultation of heart Overall: no murmurs 11/01/2012 None Full Exam - General Psychiatric orientation/consciousness Overall: oriented to person, place and time 11/01/2012 None Full Exam - General Constitutional general appearance Overall: well nourished 08/17/2012 None Full Exam - General Constitutional general appearance Overall: well developed 08/17/2012 None Full Exam - General Constitutional general appearance Overall: in no acute distress 08/17/2012 None Full Exam - General Eyes conjunctiva/eyelids Overall: conjunctiva clear 08/17/2012 None Full Exam - General Eyes pupils and irises Overall: pupils equal, round, reactive to light and accomodation 08/17/2012 None Full Exam - General Respiratory auscultation Overall: breath sounds clear bilaterally 08/17/2012 None Full Exam - General Respiratory respiratory effort/rhythm Overall: no retractions 08/17/2012 None Full Exam - General Respiratory respiratory effort/rhythm Overall: normal rate 08/17/2012 None Full Exam - General Cardiovascular auscultation of heart Overall: regular rate 08/17/2012 None Full Exam - General Cardiovascular auscultation of heart Overall: normal heart sounds 08/17/2012 None Full Exam - General Cardiovascular auscultation of heart Overall: no murmurs 08/17/2012 None Full Exam - General Psychiatric orientation/consciousness Overall: oriented to person, place and time 08/17/2012 None Full Exam - General Neurologic cranial nerves CN12: a normal exam 08/17/2012 None Full Exam - General Neurologic cranial nerves CN 2-right eye: a normal exam 08/17/2012 None Full Exam - General Neurologic cranial nerves CN 2-left eye: a normal exam 08/17/2012 None Full Exam - General Neurologic cranial nerves CN3,4,6: extraocular movements intact 08/17/2012 None Full Exam - General Neurologic cranial nerves Left visual field: a normal exam 08/17/2012 None Full Exam - General Neurologic cranial nerves Pupillary size: Pupils equal 08/17/2012 None Full Exam - General Neurologic cranial nerves CN7: a normal exam 08/17/2012 None Full Exam - General Neurologic cranial nerves Right visual field: a normal exam 08/17/2012 None Full Exam - General Neurologic cranial nerves Visual field: a normal exam 08/17/2012 None Full Exam - General Ears/Nose/Throat otoscopic exam Overall: external auditory canals clear 08/17/2012 None Full Exam - General Ears/Nose/Throat otoscopic exam Overall: tympanic membranes clear 08/17/2012 None Full Exam - General Ears/Nose/Throat oral cavity/pharynx/larynx Overall: oral mucosa clear 08/17/2012 None Full Exam - General Neurologic gait Overall: no ataxia, no unsteadiness 08/17/2012 None Full Exam - General Integument inspection of skin Overall: no rash, lesions 08/17/2012 None Full Exam - General Constitutional general appearance Overall: well nourished 02/14/2012 None Full Exam - General Constitutional general appearance Overall: well developed 02/14/2012 None Full Exam - General Constitutional general appearance Overall: in no acute distress 02/14/2012 None Full Exam - General Eyes pupils and irises Overall: pupils equal, round, reactive to light and accomodation 02/14/2012 None Full Exam - General Respiratory auscultation Overall: breath sounds clear bilaterally 02/14/2012 None Full Exam - General Respiratory respiratory effort/rhythm Overall: no retractions 02/14/2012 None Full Exam - General Respiratory respiratory effort/rhythm Overall: normal rate 02/14/2012 None Full Exam - General Cardiovascular auscultation of heart Overall: regular rate 02/14/2012 None Full Exam - General Cardiovascular auscultation of heart Overall: normal heart sounds 02/14/2012 None Full Exam - General Cardiovascular auscultation of heart Overall: no murmurs 02/14/2012 None Full Exam - General Psychiatric orientation/consciousness Overall: oriented to person, place and time 02/14/2012 None Full Exam - General Eyes conjunctiva/eyelids Overall: conjunctiva clear 02/14/2012 None Full Exam - Genitourinary/Female Musculoskeletal gait and station Overall: normal station 11/18/2011 None Full Exam - Genitourinary/Female Musculoskeletal head and neck Overall: head atraumatic 11/18/2011 None Full Exam - Genitourinary/Female Neurologic mood and affect Overall: normal affect 11/18/2011 None Full Exam - Genitourinary/Female Neurologic mood and affect Overall: normal mood 11/18/2011 None Full Exam - Genitourinary/Female Neurologic orientation Overall: oriented to person, place and time 11/18/2011 None Full Exam - Genitourinary/Female Psychiatric orientation/consciousness Overall: oriented to person, place and time 11/18/2011 None Full Exam - Genitourinary/Female Respiratory auscultation Overall: breath sounds clear bilaterally 11/18/2011 None Full Exam - Genitourinary/Female Respiratory respiratory effort/rhythm Overall: no retractions 11/18/2011 None Full Exam - Genitourinary/Female Respiratory respiratory effort/rhythm Overall: normal rate 11/18/2011 None Full Exam - Genitourinary/Female Genitourinary cervix Overall: cervix surgically absent 11/18/2011 None Full Exam - Genitourinary/Female Genitourinary uterus Overall: uterus surgically absent 11/18/2011 None Full Exam - Genitourinary/Female Genitourinary anus and perineum Overall: good sphincter tone, no masses, no lesions 11/18/2011 None Full Exam - Genitourinary/Female Genitourinary vagina Introitus: normal appearance 11/18/2011 None Full Exam - Genitourinary/Female Genitourinary vagina Overall: no discharge 11/18/2011 None Full Exam - Genitourinary/Female Genitourinary vagina Overall: no lesions 11/18/2011 None Full Exam - Genitourinary/Female Genitourinary vagina Overall: normal pelvic support 11/18/2011 None Full Exam - Genitourinary/Female Genitourinary vagina Overall: normal tone 11/18/2011 None Full Exam - Genitourinary/Female Genitourinary vagina Vagina: no lesions present 11/18/2011 None Full Exam - Genitourinary/Female Genitourinary vagina Vaginal discharge: absent 11/18/2011 None Full Exam - Genitourinary/Female Genitourinary vagina Vaginal tone: a normal exam 11/18/2011 None Full Exam - Genitourinary/Female Integument inspection and palpation of skin Overall: no rash, lesions 11/18/2011 None Full Exam - Genitourinary/Female Lymphatic inspection and palpation of nodes Overall: anterior cervical chain benign 11/18/2011 None Full Exam - Genitourinary/Female Lymphatic inspection and palpation of nodes Overall: posterior cervical chain benign 11/18/2011 None Full Exam - Genitourinary/Female Musculoskeletal gait and station Overall: normal gait 11/18/2011 None Full Exam - Genitourinary/Female Eyes conjunctiva/eyelids Overall: conjunctiva clear 11/18/2011 None Full Exam - Genitourinary/Female Eyes pupils and irises Overall: pupils equal, round, reactive to light and accomodation 11/18/2011 None Full Exam - Genitourinary/Female Genitourinary bladder Palpation: no masses 11/18/2011 None Full Exam - Genitourinary/Female Genitourinary bladder Palpation: non-tender 11/18/2011 None Full Exam - Genitourinary/Female Genitourinary breast inspection & palpation Overall: breasts non-tender, no mass lesions 11/18/2011 None Full Exam - Genitourinary/Female Genitourinary breast inspection & palpation Overall: breasts symmetric and without lesions 11/18/2011 None Full Exam - Genitourinary/Female Genitourinary breast inspection & palpation Overall: no nipple discharge 11/18/2011 None Full Exam - Genitourinary/Female Genitourinary external genitalia Overall: no discharge 11/18/2011 None Full Exam - Genitourinary/Female Genitourinary external genitalia Overall: no lesions 11/18/2011 None Full Exam - Genitourinary/Female Genitourinary urethral meatus Overall: normal size and location 11/18/2011 None Full Exam - Genitourinary/Female Abdomen abdominal exam Overall: no mass lesions 11/18/2011 None Full Exam - Genitourinary/Female Abdomen abdominal exam Overall: non tender, non distended 11/18/2011 None Full Exam - Genitourinary/Female Abdomen abdominal exam Overall: normal bowel sounds 11/18/2011 None Full Exam - Genitourinary/Female Cardiovascular auscultation of heart Overall: normal heart sounds 11/18/2011 None Full Exam - Genitourinary/Female Cardiovascular auscultation of heart Overall: regular rate 11/18/2011 None Full Exam - Genitourinary/Female Cardiovascular examination of vasculature Overall: no clubbing, cyanosis, edema 11/18/2011 None Full Exam - Genitourinary/Female Constitutional general appearance Overall: in no acute distress 11/18/2011 None Full Exam - Genitourinary/Female Constitutional general appearance Overall: well developed 11/18/2011 None Full Exam - Genitourinary/Female Constitutional general appearance Overall: well nourished 11/18/2011 None Full Exam - Genitourinary/Female Ears/Nose/Throat oral cavity/pharynx/larynx Overall: oral mucosa clear 11/18/2011 None Full Exam - Genitourinary/Female Ears/Nose/Throat otoscopic exam Overall: external auditory canals clear 11/18/2011 None Full Exam - Genitourinary/Female Ears/Nose/Throat otoscopic exam Overall: tympanic membranes clear 11/18/2011 None Full Exam - General Eyes pupils and irises Overall: pupils equal, round, reactive to light and accomodation 10/20/2011 None Full Exam - General Ears/Nose/Throat otoscopic exam Overall: external auditory canals clear 10/20/2011 None Full Exam - General Ears/Nose/Throat otoscopic exam Overall: tympanic membranes clear 10/20/2011 None Full Exam - General Ears/Nose/Throat oral cavity/pharynx/larynx Overall: oral mucosa clear 10/20/2011 None Full Exam - General Respiratory auscultation Overall: breath sounds clear bilaterally 10/20/2011 None Full Exam - General Respiratory respiratory effort/rhythm Overall: no retractions 10/20/2011 None Full Exam - General Respiratory respiratory effort/rhythm Overall: normal rate 10/20/2011 None Full Exam - General Cardiovascular auscultation of heart Overall: regular rate 10/20/2011 None Full Exam - General Cardiovascular auscultation of heart Overall: normal heart sounds 10/20/2011 None Full Exam - General Cardiovascular auscultation of heart Overall: no murmurs 10/20/2011 None Full Exam - General Lymphatic neck nodes Overall: anterior cervical chain benign 10/20/2011 None Full Exam - General Lymphatic neck nodes Overall: posterior cervical chain benign 10/20/2011 None Full Exam - General Psychiatric orientation/consciousness Overall: oriented to person, place and time 10/20/2011 None Full Exam - General Ears/Nose/Throat oral cavity/pharynx/larynx Oropharynx: erythema 10/20/2011 None Full Exam - General Constitutional general appearance Overall: well nourished 10/20/2011 None Full Exam - General Constitutional general appearance Overall: well developed 10/20/2011 None Full Exam - General Constitutional general appearance Overall: in no acute distress 10/20/2011 None Full Exam - General Eyes conjunctiva/eyelids Overall: conjunctiva clear 10/20/2011 None Procedures Procedure Codes Date TRIAMCINOLONE ACET INJ NOS CPT-4: J3301 12/30/2015 ROCEPHIN, PER 250 MG CPT- 4: J0696 12/30/2015 URINALYSIS NONAUTO W/O SCOPE CPT-4: 65833 01/09/2015 C URINE RT (URINE CULTURE/COLONY COUNT) CPT-4: 54157 01/09/2015 ROCEPHIN, PER 250 MG CPT- 4: J0696 01/05/2013 PREV VISIT EST AGE 40-64 CPT-4: 46602 11/18/2011 Vital Signs Date Vital 06/12/2019 Blood Pressure 1: 120/76 Code: 8480-6 BMI: 23.8 Code: 96631-2 Heart Rate 1: 69 bpm Height: 5'2" SpO2: 99% Weight: 128 lbs 03/02/2019 Blood Pressure 1: 140/76 Code: 8480-6 BMI: 24.5 Code: 61254-7 Heart Rate 1: 94 bpm Height: 5'2" SpO2: 99% Weight: 132 lbs 05/19/2018 Blood Pressure 1: 118/80 Code: 8480-6 BMI: 24.4 Code: 93628-0 Heart Rate 1: 67 bpm Height: 5'2" SpO2: 98% Weight: 131 lbs 06/27/2017 Blood Pressure 1: 138/84 Code: 8480-6 BMI: 25.2 Code: 15486-0 Heart Rate 1: 92 bpm Height: 5'2" SpO2: 98% Weight: 135 lbs 8 oz 04/22/2017 Blood Pressure 1: 122/78 Code: 8480-6 BMI: 27.0 Code: 10939-8 Heart Rate 1: 82 bpm Height: 5'2" SpO2: 98% Weight: 145 lbs 01/11/2017 Blood Pressure 1: 124/76 Code: 8480-6 Heart Rate 1: 79 bpm Height: 5'1" SpO2: 95% 12/03/2016 Blood Pressure 1: 140/86 Code: 8480-6 BMI: 28.3 Code: 21751-4 Heart Rate 1: 80 bpm Height: 5'2" SpO2: 98% Weight: 152 lbs 01/26/2016 Blood Pressure 1: 120/82 Code: 8480-6 BMI: 27.5 Code: 84984-8 Heart Rate 1: 78 bpm Height: 5'2" Weight: 148 lbs 12/30/2015 Blood Pressure 1: 122/78 Code: 8480-6 Heart Rate 1: 88 bpm SpO2: 96% 01/09/2015 Blood Pressure 1: 138/88 Code: 8480-6 BMI: 28.8 Code: 49066-7 Heart Rate 1: 80 bpm Height: 5'2" Weight: 155 lbs 11/29/2014 Blood Pressure 1: 128/80 Code: 8480-6 BMI: 29.2 Code: 68342-8 Heart Rate 1: 80 bpm Height: 5'2" Weight: 157 lbs 08/22/2014 Blood Pressure 1: 130/88 Code: 8480-6 Weight: 160 lbs 06/25/2014 Blood Pressure 1: 124/76 Code: 8480-6 BMI: 29.9 Code: 82024-6 Heart Rate 1: 72 bpm Height: 5'2" Weight: 161 lbs 02/18/2014 Blood Pressure 1: 128/84 Code: 8480-6 BMI: 30.9 Code: 86627-2 Heart Rate 1: 76 bpm Height: 5'2" Weight: 166 lbs 09/13/2013 Blood Pressure 1: 126/82 Code: 8480-6 BMI: 30.1 Code: 31624-7 Heart Rate 1: 80 bpm Height: 5'2" Weight: 162 lbs 06/28/2013 Blood Pressure 1: 122/84 Code: 8480-6 BMI: 30.1 Code: 86983-8 Heart Rate 1: 84 bpm Height: 5'2" Weight: 162 lbs 02/23/2013 Blood Pressure 1: 124/86 Code: 8480-6 BMI: 30.1 Code: 43632-0 Heart Rate 1: 80 bpm Height: 5'2" Weight: 162 lbs 01/05/2013 Blood Pressure 1: 128/78 Code: 8480-6 BMI: 29.0 Code: 74314-4 Heart Rate 1: 80 bpm Height: 5'2" Temperature: 36.6 (C) / 97.8 (F) Weight: 156 lbs 11/01/2012 Blood Pressure 1: 134/88 Code: 8480-6 BMI: 30.5 Code: 69449-4 Heart Rate 1: 80 bpm Height: 5'2" Weight: 164 lbs 08/17/2012 Blood Pressure 1: 114/70 Code: 8480-6 BMI: 28.8 Code: 62953-0 Heart Rate 1: 68 bpm Height: 5'2" Weight: 155 lbs 02/14/2012 Blood Pressure 1: 126/82 Code: 8480-6 BMI: 29.5 Code: 45612-1 Heart Rate 1: 68 bpm Height: 5'1" Respiratory Rate: 16 bpm Weight: 156 lbs 11/18/2011 Blood Pressure 1: 104/72 Code: 8480-6 BMI: 28.6 Code: 89570-5 Heart Rate 1: 20 bpm Height: 5'2" Respiratory Rate: 16 bpm Weight: 154 lbs 10/20/2011 Blood Pressure 1: 137/81 Code: 8480-6 BMI: 28.8 Code: 62034-9 Heart Rate 1: 78 bpm Height: 5'2" Weight: 155 lbs Functional Status No Functional Status data History of Present Illness Symptom Name Status Result Effective Date Notes Pap Smear last normal performed on ??-??-?10yr. 06/12/2019 None Pap Smear normal results 06/12/2019 None Control hysterectomy 06/12/2019 None Nutrition and Exercise normal weight 06/12/2019 None Nutrition and Exercise regular diet 06/12/2019 None Obstetrical History 3 total pregnancies 06/12/2019 None Obstetrical History 3 full term 06/12/2019 None Menstrual History menopause at age hysterectomy 06/12/2019 None Lifestyle normal sleep patterns 06/12/2019 None Health Guidance baseline mammogram 06/12/2019 None Sexual Activity is monogamous 06/12/2019 None Immunizations influenza vaccine (annually over 50 y.o.) 06/12/2019 None Immunizations tetanus-diphtheria booster 06/12/2019 None Location diffusely 03/02/2019 None Quality aching 03/02/2019 None Quality constant 03/02/2019 None Quality scratchy 03/02/2019 None Onset and Resolution sudden in onset 03/02/2019 None Onset of Symptom 4 days ago 03/02/2019 None blood pressure followup Quality intermittent 05/19/2018 None blood pressure followup Onset and Resolution ongoing 05/19/2018 None blood pressure followup Blood Pressure Values not checking blood pressure at home 05/19/2018 None blood pressure followup Pertinent Findings Denies anxiety 05/19/2018 None blood pressure followup Pertinent Findings Denies dizziness 05/19/2018 None blood pressure followup Pertinent Findings Denies dyspnea 05/19/2018 None blood pressure followup Severity mild 05/19/2018 None blood pressure followup Frequency of Episodes unchanged 05/19/2018 None blood pressure followup Triggers no known associated factors 05/19/2018 None blood pressure followup Alleviating Factors medication 05/19/2018 None weight gain/obesity Location globally 06/27/2017 None weight gain/obesity Onset and Resolution ongoing 06/27/2017 None weight gain/obesity Onset of Symptom _ years ago 06/27/2017 None weight gain/obesity Frequency of Episodes decreasing 06/27/2017 None weight gain/obesity Diet is unchanged 06/27/2017 None weight gain/obesity Location globally 04/22/2017 None weight gain/obesity Onset and Resolution ongoing 04/22/2017 None weight gain/obesity Onset of Symptom _ years ago 04/22/2017 None weight gain/obesity Frequency of Episodes decreasing 04/22/2017 None weight gain/obesity Diet is unchanged 04/22/2017 None eye pain Location in the left eye 01/11/2017 None eye pain Location in the right eye 01/11/2017 None eye pain Quality burning 01/11/2017 None eye pain Quality intermittent 01/11/2017 None eye pain Onset and Resolution ongoing 01/11/2017 None eye pain Onset of Symptom 1 months ago 01/11/2017 None eye pain Limitation on Activities does not limit activities 01/11/2017 None eye pain Pertinent Findings eye discharge 01/11/2017 None eye pain Pertinent Findings eye swelling 01/11/2017 under L eye eye pain Pertinent Findings Denies foreign body 01/11/2017 None eye pain Pertinent Findings Denies fever 01/11/2017 None eye pain Triggers no known associated factors 01/11/2017 None eye pain Triggers contact lens wearer 01/11/2017 sometimes eye pain Alleviating Factors rest 01/11/2017 None dizziness Quality sense of motion 12/03/2016 None dizziness Quality intermittent 12/03/2016 None dizziness Onset of Symptom 2-3 weeks ago 12/03/2016 None dizziness Limitation on Activities does not limit activities 12/03/2016 None dizziness Length of Episodes a few minutes 12/03/2016 None dizziness Triggers position change 12/03/2016 None dizziness Exacerbating Factors turning the head 12/03/2016 None dizziness Pertinent Findings Denies fever 12/03/2016 None dizziness Pertinent Findings Denies dyspnea 12/03/2016 None cough Location in the throat 01/26/2016 None cough Quality dry 01/26/2016 None cough Onset and Resolution sudden in onset 01/26/2016 None cough Frequency of Episodes daily 01/26/2016 None sore throat Location on both sides 01/26/2016 None sore throat Quality dull 01/26/2016 None sore throat Quality scratchy 01/26/2016 None sore throat Onset and Resolution sudden in onset 01/26/2016 None sore throat Frequency of Episodes daily 01/26/2016 None earache Location both ears 01/26/2016 None earache Onset and Resolution sudden in onset 01/26/2016 None chest congestion Quality constant 01/26/2016 None chest congestion Onset and Resolution sudden in onset 01/26/2016 None sore throat Quality acute 01/26/2016 None sore throat Limitation on Activities does not limit oral intake 01/26/2016 None sore throat Significant Medical Conditions allergic rhinitis 01/26/2016 None sore throat Pertinent Findings cough 01/26/2016 None sore throat Pertinent Findings nasal congestion 01/26/2016 None cough Quality acute 01/26/2016 None cough Limitation on Activities does not limit activities 01/26/2016 None cough Pertinent Findings chills 01/26/2016 None cough Pertinent Findings Denies dyspnea 01/26/2016 None cough Pertinent Findings Denies hemoptysis 01/26/2016 None sinus congestion Location maxillary sinuses 01/26/2016 None sinus congestion Quality acute 01/26/2016 None sinus congestion Severity moderate 01/26/2016 None sinus congestion Pertinent Findings cough 01/26/2016 None sore throat Location on both sides 12/30/2015 None sore throat Quality acute 12/30/2015 None sore throat Limitation on Activities does not limit oral intake 12/30/2015 None sore throat Significant Medical Conditions allergic rhinitis 12/30/2015 None sore throat Pertinent Findings cough 12/30/2015 None sore throat Pertinent Findings nasal congestion 12/30/2015 None cough Location in the throat 12/30/2015 None cough Quality acute 12/30/2015 None cough Limitation on Activities does not limit activities 12/30/2015 None cough Pertinent Findings chills 12/30/2015 None cough Pertinent Findings Denies dyspnea 12/30/2015 None cough Pertinent Findings Denies hemoptysis 12/30/2015 None sinus congestion Location maxillary sinuses 12/30/2015 None sinus congestion Quality acute 12/30/2015 None sinus congestion Severity moderate 12/30/2015 None sinus congestion Pertinent Findings cough 12/30/2015 None urinary urgency Onset of Symptom 4 days ago 01/09/2015 None urinary urgency Pertinent Findings back pain 01/09/2015 lower urinary urgency Pertinent Findings pelvic pain 01/09/2015 tenderness, but mostly pressure urinary urgency Quality acute 01/09/2015 None urinary urgency Onset and Resolution ongoing 01/09/2015 None urinary urgency Limitation on Activities does not limit activities 01/09/2015 None urinary urgency Frequency of Episodes increasing 01/09/2015 None urinary urgency Significant Medical Conditions urinary tract infections 01/09/2015 None urinary urgency Triggers no known associated factors 01/09/2015 None urinary urgency Pertinent Findings bladder pain 01/09/2015 None urinary urgency Pertinent Findings fever 01/09/2015 None urinary urgency Pertinent Findings nausea 01/09/2015 None urinary urgency Pertinent Findings Denies vomiting 01/09/2015 None fatigue Quality acute 02/18/2014 states having more migraines. no energy to do anything abdominal pain Location in the RLQ 02/18/2014 None abdominal pain Quality acute 02/18/2014 None abdominal pain Onset of Symptom 6 months ago 02/18/2014 had one ovary left from hysterectomy and wondered if it could be causing prob abdominal pain Pertinent Findings bloating 02/18/2014 None abdominal pain Pertinent Findings nausea 02/18/2014 None abdominal pain Pertinent Findings Denies emesis 02/18/2014 None abdominal pain Pertinent Findings Denies vomiting 02/18/2014 None fatigue Onset of Symptom 2-3 months ago 02/18/2014 None fatigue Onset and Resolution ongoing 02/18/2014 None fatigue Limitation on Activities does not limit activities 02/18/2014 None fatigue Frequency of Episodes increasing 02/18/2014 None blood pressure followup Quality chronic 06/28/2013 None blood pressure followup Onset and Resolution ongoing 06/28/2013 None blood pressure followup Blood Pressure Values not checking blood pressure at home 06/28/2013 None weight gain/obesity Quality chronic 06/28/2013 wants to start back on phentermine blood pressure followup Onset of Symptom during adulthood 06/28/2013 None blood pressure followup Severity mild 06/28/2013 None blood pressure followup Frequency of Episodes unchanged 06/28/2013 None blood pressure followup Triggers stress 06/28/2013 None blood pressure followup Pertinent Findings Denies tachycardia 06/28/2013 None blood pressure followup Pertinent Findings Denies decreased energy 06/28/2013 None blood pressure followup Pertinent Findings Denies dizziness 06/28/2013 None blood pressure followup Pertinent Findings Denies dyspnea 06/28/2013 None blood pressure followup Pertinent Findings Denies edema 06/28/2013 None blood pressure followup Pertinent Findings Denies stroke 06/28/2013 None blood pressure followup Pertinent Findings Denies palpitations 06/28/2013 None blood pressure followup Pertinent Findings Denies neurologic changes 06/28/2013 None sore throat Onset of Symptom 1 weeks ago 01/05/2013 None sore throat Location on both sides 01/05/2013 None sore throat Quality burning 01/05/2013 None sore throat Quality scratchy 01/05/2013 None sore throat Pertinent Findings cough 01/05/2013 None sore throat Pertinent Findings decreased energy level 01/05/2013 None sore throat Pertinent Findings hoarseness 01/05/2013 None sore throat Pertinent Findings nasal congestion 01/05/2013 None sinus congestion Location on both sides 01/05/2013 None sinus congestion Pertinent Findings cough 01/05/2013 None sinus congestion Pertinent Findings hoarseness 01/05/2013 None sinus congestion Timing of Episodes all day long 01/05/2013 None sinus congestion Alleviating Factors medication 01/05/2013 Ruby [place] plus. helped her sleep sore throat Pertinent Findings Denies vomiting 01/05/2013 None sinus congestion Onset of Symptom 1 weeks ago 01/05/2013 None sinus congestion Frequency of Episodes unchanged 01/05/2013 None sinus congestion Pertinent Findings decreased energy level 01/05/2013 None sore throat Limitation on Activities does not limit oral intake 01/05/2013 None sore throat Frequency of Episodes increasing 01/05/2013 None sore throat Triggers no known associated factors 01/05/2013 None sinus congestion Onset and Resolution ongoing 01/05/2013 None sinus congestion Triggers no known associated factors 01/05/2013 None weight gain/obesity Location globally 11/01/2012 None weight gain/obesity Onset and Resolution ongoing 11/01/2012 None weight gain/obesity Frequency of Episodes increasing 11/01/2012 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 weight gain/obesity Diet is unchanged 11/01/2012 None weight gain/obesity Triggers sedentary lifestyle 11/01/2012 None headache Location in the frontal area 08/17/2012 None headache Quality sharp 08/17/2012 None headache Quality stabbing 08/17/2012 None headache Quality throbbing 08/17/2012 None headache Onset and Resolution gradual in onset 08/17/2012 sensitive to light headache Significant Medical Conditions migraines 08/17/2012 None headache Triggers menses 08/17/2012 wonders if it's hormonal. Has 1 ovary left headache Triggers activity 08/17/2012 weather change headache Alleviating Factors medication 08/17/2012 zomig if taken early enough headache Pertinent Findings Denies anxiety 08/17/2012 None headache Pertinent Findings Denies depressed mood 08/17/2012 None headache Pertinent Findings Denies dizziness 08/17/2012 None headache Pertinent Findings Denies facial pain 08/17/2012 None headache Pertinent Findings Denies lethargy 08/17/2012 None headache Pertinent Findings Denies nausea 08/17/2012 None headache Pertinent Findings Denies numbness 08/17/2012 None headache Pertinent Findings Denies toothache 08/17/2012 None headache Pertinent Findings Denies syncope 08/17/2012 None weight gain/obesity Location globally 02/14/2012 None weight gain/obesity Quality acute 02/14/2012 None weight gain/obesity Onset and Resolution ongoing 02/14/2012 None weight gain/obesity Diet is unchanged 02/14/2012 None well woman exam (40-65 years) Pap Smear last normal performed on 07-09-2010 11/18/2011 None well woman exam (40-65 years) Control hysterectomy 11/18/2011 None well woman exam (40-65 years) Cardiovascular Risk Factors family history of cardiovascular disease 11/18/2011 None well woman exam (40-65 years) Cardiovascular Risk Factors lifestyle 11/18/2011 None well woman exam (40-65 years) Health Guidance baseline mammogram 11/18/2011 None well woman exam (40-65 years) Health Guidance depression symptoms 11/18/2011 None well woman exam (40-65 years) Health Guidance self-breast exam 11/18/2011 None well woman exam (40-65 years) Lifestyle no history of physical abuse 11/18/2011 None well woman exam (40-65 years) Nutrition and Exercise balanced nutrition 11/18/2011 None well woman exam (40-65 years) Nutrition and Exercise normal weight 11/18/2011 None well woman exam (40-65 years) Nutrition and Exercise regular diet 11/18/2011 None well woman exam (40-65 years) Obstetrical History _ total pregnancies 11/18/2011 None well woman exam (40-65 years) Pap Smear last abnormal performed on __-__-__ 11/18/2011 None well woman exam (40-65 years) Sexual Activity complains of dyspareunia 11/18/2011 None well woman exam (40-65 years) Sexual Activity is not sexually active 11/18/2011 None hypertension Quality chronic 10/20/2011 None hypertension Onset and Resolution ongoing 10/20/2011 None hypertension Blood Pressure Values not checking blood pressure at home 10/20/2011 -states she will occasionally check it at [facility] and states it is less than 140/90 hypertension Severity mild 10/20/2011 None hypertension Triggers stress 10/20/2011 None hypertension Alleviating Factors medication 10/20/2011 None hypertension Alleviating Factors diet changes 10/20/2011 None hypertension Alleviating Factors exercise 10/20/2011 None weight gain/obesity Location globally 10/20/2011 None weight gain/obesity Quality acute 10/20/2011 None weight gain/obesity Onset and Resolution ongoing 10/20/2011 None weight gain/obesity Diet is unchanged 10/20/2011 None sore throat Location diffusely 10/20/2011 None sore throat Quality scratchy. 10/20/2011 States she thinks she had allergies but wants to make sure her throat looks okay. 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 sore throat Onset and Resolution ongoing 10/20/2011 None sore throat Limitation on Activities does not limit oral intake 10/20/2011 None sore throat Frequency of Episodes unchanged 10/20/2011 None sore throat Triggers no known associated factors 10/20/2011 None Advance Directives No Advance Directive data Encounters Encounter Performer Location Codes Date ([id number]) PREV VISIT EST AGE 40-64 Diagnosis: Encounter for gynecological examination (general) (routine) without abnormal findings[ICD10: Z01.419] Ira Ely MD, [facility] CPT-4: 00536 06/12/2019 ([id number]) [id number] EST. PATIENT, LEVEL III Diagnosis: Acute upper respiratory infection, unspecified[ICD10: J06.9] Diagnosis: Other allergic rhinitis[ICD10: J30.89] Ira Ely MD, [facility] CPT-4: 56314 03/02/2019 ([id number]) [id number] EST. PATIENT, LEVEL III Diagnosis: Essential (primary) hypertension[ICD10: I10] Diagnosis: Mixed hyperlipidemia[ICD10: E78.2] Ira Ely MD, [facility] CPT- 4: 80241 05/19/2018 ([id number]) Miscellaneous no charge Diagnosis: Overweight[ICD10: E66.3] Ira Ely MD, [facility] CPT-4: 44245 06/27/2017 ([id number]) Miscellaneous no charge Diagnosis: Overweight[ICD10: E66.3] Ira Ely MD, [facility] CPT-4: 18585 04/22/2017 ([id number]) [id number] EST. PATIENT, LEVEL III Diagnosis: Edema of left eye, unspecified eyelid[ICD10: H02.846] Diagnosis: Localized swelling, mass and lump, head[ICD10: R22.0] Ira Ely MD, [facility] CPT-4: 75284 01/11/2017 [id number] EST. PATIENT, LEVEL IV Diagnosis: Dizziness and giddiness[ICD10: R42] Diagnosis: Other allergic rhinitis[ICD10: J30.89] Radha Ely MD, [facility] CPT- 4: 90931 12/03/2016 [id number] EST. PATIENT, LEVEL IV Diagnosis: Acute laryngopharyngitis[ICD10: J06.0] Diagnosis: Acute recurrent maxillary sinusitis[ICD10: J01.01] Diagnosis: Cough[ICD10: R05] Radha Ely MD, [facility] CPT-4: 57231 01/26/2016 05329 EST. PATIENT, LEVEL IV Diagnosis: Streptococcal pharyngitis[ICD10: J02.0] Diagnosis: Acute recurrent maxillary sinusitis[ICD10: J01.01] Radha Ely MD, [facility] CPT-4: 68750 12/30/2015 ([id number]) 38401 EST. PATIENT, LEVEL III Diagnosis: Urinary tract infection[ICD9: 599.0] Ira Ely MD [facility] CPT-4: 11073 01/09/2015 ([id number]) Miscellaneous no charge Diagnosis: OVERWEIGHT[ICD9: 278.02] Tea Ely MD [facility] CPT-4: 68126 11/29/2014 ([id number]) Miscellaneous no charge Diagnosis: OVERWEIGHT[ICD9: 278.02] Ira Ely MD, [facility] CPT-4: 10433 06/25/2014 ([id number]) 87959 EST. PATIENT, LEVEL IV Diagnosis: ESSENTIAL HYPERTENSION[SNOMED: 10947874] Diagnosis: MIGRAINE NOS/NOT INTRCBL[ICD9: 346.90] Diagnosis: Pelvic pain in female[ICD9: 625.9] Ira Ely MD, [facility] CPT- 4: 16338 02/18/2014 ([id number]) Miscellaneous no charge Diagnosis: OBESITY[ICD9: 278.00] Ira Ely MD, [facility] CPT-4: 14388 09/13/2013 ([id number]) 32967 EST. PATIENT, LEVEL III Diagnosis: ESSENTIAL HYPERTENSION[SNOMED: 31630119] Diagnosis: MIGRAINE NOS/NOT INTRCBL[ICD9: 346.90] Tea Ely MD, [facility] CPT-4: 61839 06/28/2013 ([id number]) Miscellaneous no charge Diagnosis: OVERWEIGHT[ICD9: 278.02] Tea Ely MD, [facility] CPT-4: 05827 02/23/2013 ([id number]) 57603 EST. PATIENT, LEVEL III Diagnosis: ACUTE URI[ICD9: 465.9] Diagnosis: COUGH[ICD9: 786.2] Diagnosis: OVERWEIGHT[ICD9: 278.02] Ira Ely MD, [facility] CPT-4: 51706 01/05/2013 ([id number]) 82018 EST. PATIENT, LEVEL III Diagnosis: ESSENTIAL HYPERTENSION[SNOMED: 54036499] Diagnosis: Obesity[ICD9: 278.00] [facility] CPT-4: 22718 11/01/2012 ([id number]) 79697 EST. PATIENT, LEVEL IV Diagnosis: ESSENTIAL HYPERTENSION[SNOMED: 90886698] Diagnosis: Migraine headache[ICD9: 346.90] [facility] CPT-4: 34841 08/17/2012 ([id number]) 80952 EST. PATIENT, LEVEL II Diagnosis: Overweight (BMI 25.0-29.9)[ICD9: 278.02] [facility] CPT-4: 19480 02/14/2012 80935 EST. PATIENT, LEVEL IV Diagnosis: Overweight[ICD9: 278.02] Diagnosis: ESSENTIAL HYPERTENSION[SNOMED: 64969967] Diagnosis: Pharyngitis[ICD9: 462] [facility] CPT-4: 72420 10/20/2011 Plan of Care Planned Activity Notes Codes Status Date Referral: Palmer Buitrago Referral Completed 07/19/2019 Visit Plan: Well Adult Female - exam completed. Pap and breast exam completed. Pt will be called with results of her testing. She was advised to continue with yearly annual exams. Safe sex practices discussed during office visit today. Call if any abnormal gynecologic issues during the next year, otherwise, RTC yearly or prn. Chronic constipation -referral to Dr Buitrago for colonoscopy 06/12/2019 Appointment: Ira Morales WPtel: [address] [place], [place] [id number] 06/12/2019 Patient Education: Patient Medication Summary Completed 06/12/2019 Care Plan: Referral Order SNOMED-CT : [id number] Pending 06/12/2019 Visit Plan: URI - Pt advised to increase fluids, vitamin C. Discussed natural and expected course of this diagnosis and need to alert me if symptoms do not follow expected course, or if any worse. RX sent to patient's pharmacy. Allergies - chronic - recommended pt to use allergy medication as prescribed. Pt has been counseled as to the appropriate use of the medication. Pt to call if allergy symptoms are not controlled with the medication. If using nasal spray, instructions as follows: Nasal spray- use twice daily, one spray per nostril twice daily, after 30 minutes, rinse out nose with saline spray.. Use opposite hand per nostril to spray in the nasal steroid allergy spray. 03/02/2019 Appointment: Ira Morales WPtel: [phone] [phone] [place] (15 min) Moderate 03/02/2019 Patient Education: Patient Medication Summary Completed 03/02/2019 Appointment: Radha Penaloza WPtel: [phone] [facility] [place] (15 min) Moderate 09/22/2018 Appointment: Radha Penaloza WPtel: [phone] [facility] [place] (15 min) Moderate 09/21/2018 Appointment: Ira Morales WPtel: [phone] [phone] [place] (15 min) Moderate 06/23/2018 Appointment: Ira Morales WPtel: [phone] [phone] [place] (15 min) Moderate 06/22/2018 Visit Plan: Hypertension - well controlled - continue with current medications, continue with no added salt diet. Pt has been encouraged to exercise daily. The pt has been advised to call the office if there are any acute concerns about change in blood pressure readings at home. Recommend patient start seeing a litigation attorney for yearly skin checks/monitoring of moles 05/19/2018 Visit Plan: Hypertension - well controlled - continue with current medications, continue with no added salt diet. Pt has been encouraged to exercise daily. The pt has been advised to call the office if there are any acute concerns about change in blood pressure readings at home. Recommend patient start seeing a litigation attorney for yearly skin checks/monitoring of moles 05/19/2018 Appointment: Ira Morales WPtel: [phone] [phone] [place] (15 min) Moderate 05/19/2018 Patient Education: Patient Medication Summary Completed 05/19/2018 Visit Plan: Overweight - chronic issue with this patient. The pt has been counseled about diet changes, calorie restriction, and need to exercise. Pt will RTC in one month for weight check. 06/27/2017 Appointment: Ira Morales WPtel: [phone] [phone] (15 min) Moderate 06/27/2017 Patient Education: Patient Medication Summary Completed 06/27/2017 Patient Education: Obesity Completed 06/27/2017 Visit Plan: Overweight - chronic issue with this patient. The pt has been counseled about diet changes, calorie restriction, and need to exercise. Pt will RTC in one month for weight check. 04/22/2017 Appointment: Ira Morales WPtel: [phone] [phone] (30 min) Complex 04/22/2017 Patient Education: Patient Medication Summary Completed 04/22/2017 Patient Education: Obesity Completed 04/22/2017 Visit Plan: Left xzi-yudouyvjxotkdl-latebvaz-Dr Ely in to evaluate patient-plan for besivance eye drops and zpack to cover H.flu-CT scan sinus for further evaluation-will also check TSH today in the office- patient verbalized understanding of plan. 01/11/2017 Appointment: Ira Morales WPtel: [phone] [phone] (30 min) Complex 01/11/2017 Patient Education: Patient Medication Summary Completed 01/11/2017 Visit Plan: Allergies - chronic - recommended pt to use allergy medication as prescribed. Pt has been counseled as to the appropriate use of the medication. Pt to call if allergy symptoms are not controlled with the medication. BPPV - Benign Paroxysmal Positional Vertigo - discussed with the patient, offered the pt the appropriate additional information in hand-out. Pt instructed in home exercises to help alleviate and prevent future recurrent episodes of vertigo. Pt informed that if symptoms worsen, call the office for further instructions/medication interventions. 12/03/2016 Visit Plan: Allergies - chronic - recommended pt to use allergy medication as prescribed. Pt has been counseled as to the appropriate use of the medication. Pt to call if allergy symptoms are not controlled with the medication. BPPV - Benign Paroxysmal Positional Vertigo - discussed with the patient, offered the pt the appropriate additional information in hand-out. Pt instructed in home exercises to help alleviate and prevent future recurrent episodes of vertigo. Pt informed that if symptoms worsen, call the office for further instructions/medication interventions. 12/03/2016 Visit Plan: Allergies - chronic - recommended pt to use allergy medication as prescribed. Pt has been counseled as to the appropriate use of the medication. Pt to call if allergy symptoms are not controlled with the medication. BPPV - Benign Paroxysmal Positional Vertigo - discussed with the patient, offered the pt the appropriate additional information in hand-out. Pt instructed in home exercises to help alleviate and prevent future recurrent episodes of vertigo. Pt informed that if symptoms worsen, call the office for further instructions/medication interventions. 12/03/2016 Appointment: Radha Penaloza WPtel: [phone] [facility] (30 min) Complex 12/03/2016 Patient Education: Patient Medication Summary Completed 12/03/2016 Appointment: Radha Penaloza [facility]el[facility] [address] [facility] (15 min) Moderate 04/01/2016 Visit Plan: Sinusitis - Pt has acute infection - pain in face, maxillary region, Pt informed to use decongestant, RX given to patient, sinus rinses also recommended. Call if symptoms do not show improvement. URI - Pt advised to increase fluids, vitamin C. Discussed natural and expected course of this diagnosis and need to alert me if symptoms do not follow expected course, or if any worse. RX sent to patient's pharmacy. 01/26/2016 Patient Education: Patient Medication Summary Completed 01/26/2016 Visit Plan: Strep throat - pt give rx for antibiotic - sent to pharmacy - pt had swab of throat today - will culture the swab. Sinusitis - Pt has acute infection - pain in face, maxillary region, Pt informed to use decongestant, RX given to patient, sinus rinses also recommended. Call if symptoms do not show improvement. 12/30/2015 Visit Plan: Strep throat - pt give rx for antibiotic - sent to pharmacy - pt had swab of throat today - will culture the swab. Sinusitis - Pt has acute infection - pain in face, maxillary region, Pt informed to use decongestant, RX given to patient, sinus rinses also recommended. Call if symptoms do not show improvement. 12/30/2015 Patient Education: Patient Medication Summary Completed 12/30/2015 Care Plan: Abby STEPHENS Cancelled 12/30/2015 Patient Education: Patient Medication Summary Completed 08/25/2015 Visit Plan: Urinary Tract Infection-discussed natural and expected course of this diagnosis and to alert me if symptoms do not follow expected course, or if any worse. UA positive for infection today in the office-plan to send for culture and will call patient with results. RX sent to patient's pharmacy. Avoid tub baths, restrictive underwear, etc. Recommend patient start on probiotic while taking the antibiotic to prevent diarrhea. Patient verbalized understanding of plan. 01/09/2015 Appointment: Sick 01/09/2015 Patient Education: Patient Medication Summary Completed 01/09/2015 Appointment: Nurse Visit 11/29/2014 Patient Education: Patient Medication Summary Completed 11/29/2014 Patient Education: Patient Medication Summary Completed 08/22/2014 Appointment: Nurse Visit 06/25/2014 Patient Education: Patient Medication Summary Completed 06/25/2014 Visit Plan: Hypertension - well controlled - continue with current medications, continue with no added salt diet. Pt has been encouraged to exercise daily. The pt has been advised to call the office if there are any acute concerns about change in blood pressure readings at home. Migraines- restart topamax-check labs Pelvic pain-1 ovary remaining-recommend pelvic ultrasound 02/18/2014 Patient Education: Patient Medication Summary Completed 02/18/2014 Patient Education: Hypertension Completed 02/18/2014 Appointment: Ira Morales WPtel: [address] [place], [place] [phone] Other 02/15/2014 Appointment: Ira Morales WPtel: [address] [place], [place] [phone] Nurse Visit 09/13/2013 Patient Education: Patient Medication Summary Completed 09/13/2013 Visit Plan: Hypertension - well controlled - continue with current medications, continue with no added salt diet. Pt has been encouraged to exercise daily. The pt has been advised to call the office if there are any acute concerns about change in blood pressure readings at home. Migraines-well controlled-refill zomig Obesity-refill phentermine-f/u in 1 month for weight check. 06/28/2013 Appointment: Ira Morales WPtel: [address] [place], [place] [phone] [place] [address] Follow up 06/28/2013 Patient Education: Patient Medication Summary Completed 06/28/2013 Patient Education: Hypertension Completed 06/28/2013 Visit Plan: Weight and blood pressure check 02/23/2013 Appointment: Ira Morales WPtel: [address] [place], [place] [phone] [place] [address] Follow up 02/23/2013 Patient Education: Patient Medication Summary Completed 02/23/2013 Visit Plan: URI -cough- Pt advised to increase fluids, vitamin C. Discussed natural and expected course of this diagnosis and need to alert me if symtpoms do not follow expected course, or if any worse. RX sent to patient's pharmacy. Rocephin injection today in the office. Overweight-refill phentermine 01/05/2013 Appointment: Ira Morales WPtel: [address] [place], [place] [phone] Sick 01/05/2013 Patient Education: Patient Medication Summary Completed 01/05/2013 Visit Plan: Overweight - chronic issue with this patient. The pt has been counseled about diet changes, calorie restriction, and need to exercise. Pt will RTC in one month for weight check. Obesity - chronic issue with this patient. The pt has been counseled about diet changes, calorie restriction, and need to exercise. Pt will RTC in one month for weight check. Hypertension - well controlled - continue with current medications, continue with no added salt diet. Pt has been encouraged to exercise daily. The pt has been advised to call the office if there are any acute concerns about change in blood pressure readings at home. RESTART HCTZ daily and monitor blood pressure- call if blood pressure elevated. 11/01/2012 Appointment: Ira Morales WPtel: [address] [place], [place] [phone] Physical 11/01/2012 Patient Education: Patient Medication Summary Completed 11/01/2012 Patient Education: Hypertension Completed 11/01/2012 Visit Plan: Hypertension - well controlled - continue with current medications, continue with no added salt diet. Pt has been encouraged to exercise daily. The pt has been advised to call the office if there are any acute concerns about change in blood pressure readings at home. Acute Migraine - pt has chronic migraine headaches, but comes into clinic today complaining of intractible migraine headache symptoms. I have recommended changes to the chronic symptoms management and the pt has been given the following acute treatment in clinic today: Topamax 25mg daily in the evening, increase to BID after 2 weeks. 08/17/2012 Appointment: Ira Morales WPtel: [phone] Other 08/17/2012 Patient Education: Patient Medication Summary Completed 08/17/2012 Patient Education: High Blood Pressure: Essential Hypertension Completed 08/17/2012 Appointment: Tea Ely WPtel: [facility] Surgical Procedure 07/11/2012 Appointment: Tea Ely WPtel: [facility] Surgical Procedure 02/22/2012 Visit Plan: Overweight - chronic issue with this patient. The pt has been counseled about diet changes, calorie restriction, and need to exercise. Pt will RTC in one month for weight check. Obesity - chronic issue with this patient. The pt has been counseled about diet changes, calorie restriction, and need to exercise. Pt will RTC in one month for weight check. 02/14/2012 Appointment: Tea Ely WPtel: [facility] Other 02/14/2012 Patient Education: Patient Medication Summary Completed 02/14/2012 Visit Plan: Well Adult Female - exam completed. Pap and gc/chlamydia and breast exam completed. Pt will be called with results of her testing. She was advised to continue with yearly annual exams. Safe sex practices discussed during office visit today. Call if any abnormal gynecologic issues during the next year, otherwise, RTC yearly or prn. Freckle on right labia- recommend pt to have wwe next year only for freckle check and breast exam. Moles on left chest at 7 oclock and 11oclock and need to be scheduled for a punch biopsy. 11/18/2011 Appointment: Tea E[facility]el[phone] [place] Pap Only 11/18/2011 Patient Education: Patient Medication Summary Completed 11/18/2011 Visit Plan: Overweight - chronic issue with this patient. The pt has been counseled about diet changes, calorie restriction, and need to exercise. Pt will RTC in one month for weight check. Pharyngitis-Discussed na tural and expected course of this diagnosis and need to alert me if symtpoms do not follow expected course, or if any worse. Recommended salt water gargles as needed for pain. Tylenol/motrin as needed for fever/discomfort. Hypertension - well controlled - continue with current medications, continue with no added salt diet. Pt has been encouraged to exercise daily. The pt has been advised to call the office if there are any acute concerns about change in blood pressure readings at home. 10/20/2011 Appointment: Ira Morales WPtel: [id number] Other 10/20/2011 Patient Education: Patient Medication Summary Completed 10/20/2011 Patient Education: High Blood Pressure: Essential Hypertension Completed 10/20/2011 Appointment: Ira Morales WPtel: [phone] [place] Other 09/28/2011 Referral: Palmer Buitrago Referral Appointment Requested Instructions Comment . Hypertension - well controlled - continue with current medications, continue with no added salt diet. Pt has been encouraged to exercise daily. The pt has been advised to call the office if there are any acute concerns about change in blood pressure readings at home. Acute Migraine - pt has chronic migraine headaches, but comes into clinic today complaining of intractible migraine headache symptoms. I have recommended changes to the chronic symptoms management and the pt has been given the following acute treatment in clinic today: Topamax 25mg daily in the evening, increase to BID after 2 weeks. . Hypertension - well controlled - continue with current medications, continue with no added salt diet. Pt has been encouraged to exercise daily. The pt has been advised to call the office if there are any acute concerns about change in blood pressure readings at home. Recommend patient start seeing a litigation attorney for yearly skin checks/monitoring of moles . Overweight - chronic issue with this patient. The pt has been counseled about diet changes, calorie restriction, and need to exercise. Pt will RTC in one month for weight check. Obesity - chronic issue with this patient. The pt has been counseled about diet changes, calorie restriction, and need to exercise. Pt will RTC in one month for weight check. . Overweight - chronic issue with this patient. The pt has been counseled about diet changes, calorie restriction, and need to exercise. Pt will RTC in one month for weight check. Obesity - chronic issue with this patient. The pt has been counseled about diet changes, calorie restriction, and need to exercise. Pt will RTC in one month for weight check. Hypertension - well controlled - continue with current medications, continue with no added salt diet. Pt has been encouraged to exercise daily. The pt has been advised to call the office if there are any acute concerns about change in blood pressure readings at home. RESTART HCTZ daily and monitor blood pressure-call if blood pressure elevated. . Sinusitis - Pt has acute infection - pain in face, maxillary region, Pt informed to use decongestant, RX given to patient, sinus rinses also recommended. Call if symptoms do not show improvement. URI - Pt advised to increase fluids, vitamin C. Discussed natural and expected course of this diagnosis and need to alert me if symptoms do not follow expected course, or if any worse. RX sent to patient's pharmacy. RESTART TOPAMAX 25MG AT BEDTIME . Hypertension - well controlled - continue with current medications, continue with no added salt diet. Pt has been encouraged to exercise daily. The pt has been advised to call the office if there are any acute concerns about change in blood pressure readings at home. Migraines-restart topamax-check labs Pelvic pain-1 ovary remaining-recommend pelvic ultrasound . Hypertension - well controlled - continue with current medications, continue with no added salt diet. Pt has been encouraged to exercise daily. The pt has been advised to call the office if there are any acute concerns about change in blood pressure readings at home. Migraines-well controlled-refill zomig Obesity-refill phentermine-f/u in 1 month for weight check. . Left vnx-xvfqpvbnqcpxbf-xosrgaba-Dr Ely in to evaluate patient-plan for besivance eye drops and zpack to cover H.flu-CT scan sinus for further evaluation-will also check TSH today in the office-patient verbalized understanding of plan. zyrtec or kenan salt water gargles start amoxicillin if needed over the weekend . URI - Pt advised to increase fluids, vitamin C. Discussed natural and expected course of this diagnosis and need to alert me if symptoms do not follow expected course, or if any worse. RX sent to patient's pharmacy. Allergies - chronic - recommended pt to use allergy medication as prescribed. Pt has been counseled as to the appropriate use of the medication. Pt to call if allergy symptoms are not controlled with the medication. If using nasal spray, instructions as follows: Nasal spray- use twice daily, one spray per nostril twice daily, after 30 minutes, rinse out nose with saline spray.. Use opposite hand per nostril to spray in the nasal steroid allergy spray. FASTING LABS REFER TO DR BUITRAGO FOR SCREENING COLONOSCOPY . Well Adult Female - exam completed. Pap and breast exam completed. Pt will be called with results of her testing. She was advised to continue with yearly annual exams. Safe sex practices discussed during office visit today. Call if any abnormal gynecologic issues during the next year, otherwise, RTC yearly or prn. Chronic constipation -referral to Dr Buitrago for colonoscopy . Overweight - chronic issue with this patient. The pt has been counseled about diet changes, calorie restriction, and need to exercise. Pt will RTC in one month for weight check. Pharyngitis-Discussed natural and expected course of this diagnosis and need to alert me if symtpoms do not follow expected course, or if any worse. Recommended salt water gargles as needed for pain. Tylenol/motrin as needed for fever/discomfort. Hypertension - well controlled - continue with current medications, continue with no added salt diet. Pt has been encouraged to exercise daily. The pt has been advised to call the office if there are any acute concerns about change in blood pressure readings at home. . Strep throat - pt give rx for antibiotic - sent to pharmacy - pt had swab of throat today - will culture the swab. Sinusitis - Pt has acute infection - pain in face, maxillary region, Pt informed to use decongestant, RX given to patient, sinus rinses also recommended. Call if symptoms do not show improvement. . Strep throat - pt give rx for antibiotic - sent to pharmacy - pt had swab of throat today - will culture the swab. Sinusitis - Pt has acute infection - pain in face, maxillary region, Pt informed to use decongestant, RX given to patient, sinus rinses also recommended. Call if symptoms do not show improvement. . Well Adult Female - exam completed. Pap and gc/chlamydia and breast exam completed. Pt will be called with results of her testing. She was advised to continue with yearly annual exams. Safe sex practices discussed during office visit today. Call if any abnormal gynecologic issues during the next year, otherwise, RTC yearly or prn. Freckle on right labia- recommend pt to have wwe next year only for freckle check and breast exam. Moles on left chest at 7 oclock and 11oclock and need to be scheduled for a punch biopsy. . URI -cough- Pt advised to increase fluids, vitamin C. Discussed natural and expected course of this diagnosis and need to alert me if symtpoms do not follow expected course, or if any worse. RX sent to patient's pharmacy. Rocephin injection today in the office. Overweight-refill phentermine . Urinary Tract Infection-discussed natural and expected course of this diagnosis and to alert me if symptoms do not follow expected course, or if any worse. UA positive for infection today in the office-plan to send for culture and will call patient with results. RX sent to patient's pharmacy. Avoid tub baths, restrictive underwear, etc. Recommend patient start on probiotic while taking the antibiotic to prevent diarrhea. Patient verbalized understanding of plan. . Weight and blood pressure check . Hypertension - well controlled - continue with current medications, continue with no added salt diet. Pt has been encouraged to exercise daily. The pt has been advised to call the office if there are any acute concerns about change in blood pressure readings at home. Recommend patient start seeing a litigation attorney for yearly skin checks/monitoring of moles . Allergies - chronic - recommended pt to use allergy medication as prescribed. Pt has been counseled as to the appropriate use of the medication. Pt to call if allergy symptoms are not controlled with the medication. BPPV - Benign Paroxysmal Positional Vertigo - discussed with the patient, offered the pt the appropriate additional information in hand-out. Pt instructed in home exercises to help alleviate and prevent future recurrent episodes of vertigo. Pt informed that if symptoms worsen, call the office for further instructions/medication interventions. . Allergies - chronic - recommended pt to use allergy medication as prescribed. Pt has been counseled as to the appropriate use of the medication. Pt to call if allergy symptoms are not controlled with the medication. BPPV - Benign Paroxysmal Positional Vertigo - discussed with the patient, offered the pt the appropriate additional information in hand-out. Pt instructed in home exercises to help alleviate and prevent future recurrent episodes of vertigo. Pt informed that if symptoms worsen, call the office for further instructions/medication interventions. . Allergies - chronic - recommended pt to use allergy medication as prescribed. Pt has been counseled as to the appropriate use of the medication. Pt to call if allergy symptoms are not controlled with the medication. BPPV - Benign Paroxysmal Positional Vertigo - discussed with the patient, offered the pt the appropriate additional information in hand-out. Pt instructed in home exercises to help alleviate and prevent future recurrent episodes of vertigo. Pt informed that if symptoms worsen, call the office for further instructions/medication interventions. refill phentermine x 1 month then stop . Overweight - chronic issue with this patient. The pt has been counseled about diet changes, calorie restriction, and need to exercise. Pt will RTC in one month for weight check. . Overweight - chronic issue with this patient. The pt has been counseled about diet changes, calorie restriction, and need to exercise. Pt will RTC in one month for weight check.
--- OUTSIDE RECORDS SUMMARY | 2019-07-06 10:05 | XMS REPORT | CCD ---
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/[address]: 785814121 Nonsmoker 09/27/2011 Has the patient ever used [...] Fill Instructions amoxicillin 500 mg tablet RxNorm: 688647 1 Tablet(s) PO TID 03/02/2019 03/08/2019 Inactive Zomig 5 mg tablet RxNorm: 332043 TAKE ONE TABLET BY MOUTH ONCE DAILY NEEDED 05/30/2018 No Stop Date Active hydrochlorothiazide 25 mg tablet RxNorm: 813950 1 Tablet(s) PO daily TAKE ONE TABLET BY MOUTH ONCE DAILY 05/19/2018 08/11/2019 Active patient to call when needs refills hydrochlorothiazide 25 mg tablet RxNorm: 780563 TAKE ONE TABLET BY MOUTH ONCE DAILY 04/25/2018 05/18/2018 Inactive hydrochlorothiazide 25 mg tablet RxNorm: 956505 TAKE ONE TABLET BY MOUTH ONCE DAILY 10/24/2017 04/24/2018 Inactive phentermine 37.5 mg capsule RxNorm: 096114 1 Capsule(s) PO daily 1 po q am 1/2 tab po q afternoon 06/27/2017 07/26/2017 Inactive phentermine 37.5 mg capsule RxNorm: 619668 1 Capsule(s) PO daily 1 po q am 1/2 tab po q afternoon 04/22/2017 05/21/2017 Inactive Zomig 5 mg tablet RxNorm: 035903 TAKE ONE TABLET BY MOUTH ONCE DAILY NEEDED 04/18/2017 05/23/2017 Inactive hydrochlorothiazide 25 mg tablet RxNorm: 413373 TAKE ONE TABLET BY MOUTH ONCE DAILY 04/18/2017 10/14/2017 Inactive Zithromax Z-Cameron 250 mg tablet RxNorm: 725098 1 Tablet(s) PO UD 01/11/2017 01/15/2017 Inactive Besivance 0.6 % eye drops,suspension RxNorm: 038612 1 Drop(s) OPH TID 01/11/2017 01/17/2017 Inactive ciprofloxacin 0.3 % eye drops RxNorm: 207954 Drop(s) OPH 1-2 drops every 2 hours while awake x 2 days, then every 4 hour x 5 days 12/10/2016 No Stop Date Active meclizine 25 mg tablet RxNorm: 638215 1 Tablet(s) PO TID as needed 12/03/2016 12/12/2016 Inactive Zithromax Z-Cameron 250 mg tablet RxNorm: 192346 1 Tablet(s) PO UD 12/03/2016 01/10/2017 Inactive Lipitor 10 mg tablet RxNorm: 964987 Tablet(s) 1 Tablet(s) PO QPM TAKE ONE TABLET BY MOUTH ONCE DAILY IN THE EVENING 03/22/2016 05/18/2018 Inactive hydrochlorothiazide 25 mg tablet RxNorm: 310031 Tablet(s) PO 03/22/2016 08/18/2016 Inactive TAKE ONE TABLET BY MOUTH EVERY DAY clonidine HCl 0.1 mg tablet RxNorm: 992670 1/2 Tablet(s) PO BID as needed for hot flashes 02/19/2016 03/19/2016 Inactive Zomig 5 mg tablet RxNorm: 930558 1 Tablet(s) PO daily 02/02/2016 04/17/2017 Inactive TAKE ONE TABLET BY MOUTH NEEDED please dispense generic Keflex 500 mg capsule RxNorm: 943848 1 Capsule(s) PO TID 01/26/2016 02/04/2016 Inactive hydrochlorothiazide 25 mg tablet RxNorm: 648772 1 Tablet(s) PO daily TAKE ONE TABLET BY MOUTH EVERY DAY 01/15/2016 03/14/2016 Inactive Lipitor 10 mg tablet RxNorm: 737320 1 Tablet(s) PO QPM TAKE ONE TABLET BY MOUTH ONCE DAILY IN THE EVENING 01/15/2016 03/14/2016 Inactive Kenalog 40 mg/mL suspension for injection RxNorm: 1916481 Milliliter(s) Inj 12/30/2015 12/30/2015 Inactive amoxicillin 500 mg capsule RxNorm: 002579 1 Capsule(s) PO TID 12/30/2015 01/05/2016 Inactive ceftriaxone 500 mg solution for injection RxNorm: 0380077 Inj 12/30/2015 12/30/2015 Inactive hydrochlorothiazide 25 mg tablet RxNorm: 414900 1 Tablet(s) PO daily TAKE ONE TABLET BY MOUTH EVERY DAY 11/14/2015 01/12/2016 Inactive Patient needs to make an appt Lipitor 10 mg tablet RxNorm: 010387 1 Tablet(s) PO QPM TAKE ONE TABLET BY MOUTH ONCE DAILY IN THE EVENING 11/14/2015 01/12/2016 Inactive Patient needs to make an appt clonidine HCl 0.1 mg tablet RxNorm: 580552 1/2 Tablet(s) PO BID as needed for hot flashes 02/14/2015 02/13/2015 Inactive clonidine HCl 0.1 mg tablet RxNorm: 904604 1/2 Tablet(s) PO BID as needed for hot flashes 02/14/2015 03/15/2015 Inactive Zomig 5 mg tablet RxNorm: 069287 1 Tablet(s) PO daily 02/13/2015 02/01/2016 Inactive TAKE ONE TABLET BY MOUTH NEEDED please dispense generic Bactrim DS 800 mg-160 mg tablet RxNorm: 411317 1 Tablet(s) PO BID 01/21/2015 01/20/2015 Inactive Bactrim DS 800 mg-160 mg tablet RxNorm: 522776 1 Tablet(s) PO BID 01/21/2015 01/27/2015 Inactive Cipro 500 mg tablet RxNorm: 548684 1 Tablet(s) PO BID 01/09/2015 01/15/2015 Inactive Pyridium 200 mg tablet RxNorm: 8933045 1 Tablet(s) PO TID PRN 01/09/2015 01/15/2015 Inactive phentermine 37.5 mg capsule RxNorm: 976301 1 Capsule(s) PO daily 1 po q am 1/2 tab po q afternoon 11/29/2014 12/28/2014 Inactive Lipitor 10 mg tablet RxNorm: 297589 TAKE ONE TABLET BY MOUTH ONCE DAILY IN THE EVENING 10/20/2014 10/14/2015 Inactive hydrochlorothiazide 25 mg tablet RxNorm: 780734 TAKE ONE TABLET BY MOUTH EVERY DAY 10/20/2014 10/14/2015 Inactive phentermine 37.5 mg capsule RxNorm: 625921 1 Capsule(s) PO daily 1 po q am 1/2 tab po q afternoon 08/22/2014 09/20/2014 Inactive Lipitor 10 mg tablet RxNorm: 713380 TAKE ONE TABLET BY MOUTH ONCE DAILY IN THE EVENING 07/18/2014 10/15/2014 Inactive hydrochlorothiazide 25 mg tablet RxNorm: 743947 TAKE ONE TABLET BY MOUTH EVERY DAY 07/18/2014 10/15/2014 Inactive Zomig 5 mg tablet RxNorm: 603073 1 Tablet(s) PO daily 07/17/2014 02/12/2015 Inactive TAKE ONE TABLET BY MOUTH NEEDED please dispense generic Lipitor 10 mg tablet RxNorm: 473699 1 Tablet(s) PO QPM 02/21/2014 06/20/2014 Inactive Lipitor 10 mg tablet RxNorm: 068044 1 Tablet(s) PO QPM 02/20/2014 02/20/2014 Inactive Zomig 5 mg tablet RxNorm: 458432 1 Tablet(s) PO daily 10/30/2013 07/16/2014 Inactive TAKE ONE TABLET BY MOUTH NEEDED please dispense generic phentermine 37.5 mg capsule RxNorm: 145762 1 Capsule(s) PO daily 1 po q am 1/ tab po q afternoon 09/13/2013 10/12/2013 Inactive Zomig 5 mg tablet RxNorm: 277346 1 Tablet(s) PO daily 06/28/2013 10/29/2013 Inactive TAKE ONE TABLET BY MOUTH NEEDED please dispense generic phentermine 37.5 mg capsule RxNorm: 550280 1 Capsule(s) PO daily 06/28/2013 07/27/2013 Inactive hydrochlorothiazide 25 mg tablet RxNorm: 678159 1 Tablet(s) PO TAKE ONE TABLET BY MOUTH EVERY DAY 06/25/2013 06/25/2013 Inactive hydrochlorothiazide 25 mg tablet RxNorm: 222214 1 Tablet(s) PO daily TAKE ONE TABLET BY MOUTH EVERY DAY 06/25/2013 11/13/2015 Inactive phentermine 37.5 mg capsule RxNorm: 234195 1 Capsule(s) PO daily 02/23/2013 03/24/2013 Inactive Zomig 5 mg tablet RxNorm: 341425 1 Tablet(s) PO daily 02/07/2013 06/27/2013 Inactive TAKE ONE TABLET BY MOUTH NEEDED Zomig 5 mg tablet RxNorm: 585420 Tablet(s) PO TAKE ONE TABLET BY MOUTH NEEDED 02/07/2013 05/29/2018 Inactive Rocephin 500 mg Solution for Injection RxNorm: 2390594 1.5 Milliliter(s) Inj 01/05/2013 01/05/2013 Inactive amoxicillin 500 mg capsule RxNorm: 904655 1 Capsule(s) PO TID 01/05/2013 01/11/2013 Inactive phentermine 37.5 mg capsule RxNorm: 986336 1 Capsule(s) PO daily 01/05/2013 02/03/2013 Inactive hydrochlorothiazide 25 mg tablet RxNorm: 800177 Tablet(s) PO TAKE ONE TABLET BY MOUTH EVERY DAY 12/07/2012 06/24/2013 Inactive phentermine 37.5 mg capsule RxNorm: 103103 1 Capsule(s) PO daily 11/01/2012 11/30/2012 Inactive Topamax 25 mg tablet RxNorm: 341993 1 Tablet(s) PO BID start with 25mg po in the evening and increase to twice daily after 2 weeks 08/17/2012 09/15/2012 Inactive hydrochlorothiazide 25 mg Tab RxNorm: 479951 Tablet(s) PO 05/01/2012 03/21/2016 Inactive TAKE ONE TABLET BY MOUTH EVERY DAY hydrochlorothiazide 25 mg tablet RxNorm: 349002 1 Tablet(s) PO daily 04/28/2012 04/30/2012 Inactive Zomig 5 mg tablet RxNorm: 579584 1 Tablet(s) PO 01/25/2012 02/06/2013 Inactive TAKE ONE TABLET BY MOUTH NEEDED Zomig 5 mg Tab RxNorm: 245504 1 Tablet(s) PO PRN 11/24/2011 11/23/2011 Inactive Zomig 5 mg Tab RxNorm: 106389 Tablet(s) PO 11/24/2011 01/24/2012 Inactive TAKE ONE TABLET BY MOUTH NEEDED phentermine 37.5 mg capsule RxNorm: 900457 1 Capsule(s) PO daily 10/20/2011 11/18/2011 Inactive Zomig 5 mg Tab RxNorm: 502773 1 Tablet(s) PO PRN No Start Date 11/23/2011 Inactive Zithromax Z-Cameron 250 mg Tab RxNorm: 090240 Tablet(s) PO No Start Date 11/17/2011 Inactive ciprofloxacin 0.3 % eye drops RxNorm: 119829 Drop(s) OPH 1-2 drops every 2 hours while awake x 2 days, then every 4 hour x 5 days No Start Date 12/09/2016 Inactive hydrochlorothiazide 25 mg Tab RxNorm: 579922 1 Tablet(s) PO daily No Start Date 04/27/2012 Inactive Medication Administered Medication Codes Instructions Start Date Status ceftriaxone 500 mg solution for injection RxNorm: 4959160 12/30/2015 No longer Active Kenalog 40 mg/mL suspension for injection RxNorm: 8611303 Milliliter 12/30/2015 No longer Active Rocephin 500 mg Solution for Injection RxNorm: 2668022 1.5Milliliter 01/05/2013 No longer Active Immunizations Vaccine [...] OVERWEIGHT ICD-9: 278.02 11/29/2014 ESSENTIAL HYPERTENSION SNOMED: 71757354 ICD-9: 401.9 02/18/2014 Pelvic pain in female [...] Observation Code Item Item Code Result Date Comp Metabolic Llz842 NA 140 mEq/L 05/24/2018 Comp Metabolic Ytr904 K 3.7 mEq/L 05/24/2018 Comp Metabolic Qxg466 CL 102 mEq/L 05/24/2018 Comp Metabolic Ygt870 CO2 30.0 mEq/L 05/24/2018 Comp Metabolic Utm193 ANION GAP 12 05/24/2018 Comp Metabolic Ylw699 GLUCOSE 101 mg/dL 05/24/2018 Comp Metabolic Acn735 Creat 0.8 mg/dL 05/24/2018 Comp Metabolic Cbk796 eGFR 86 ml/min/1.73m2 05/24/2018 Comp Metabolic Wll697 BUN 10 mg/dL 05/24/2018 Comp Metabolic Zrf009 B/C Ratio 13.3 Ratio 05/24/2018 Comp Metabolic Dps216 CALCIUM 10.1 mg/dL 05/24/2018 Comp Metabolic Zar999 ALK PHOS 64 U/L 05/24/2018 Comp Metabolic Swy338 AST(SGOT) 14 U/L 05/24/2018 Comp Metabolic Xzd648 ALT(SGPT) 13 U/L 05/24/2018 Comp Metabolic Lhk192 BILI T 0.5 mg/dL 05/24/2018 Comp Metabolic Tci055 ALBUMIN 4.5 g/dL 05/24/2018 Comp Metabolic Zkb888 TPRO 6.8 g/dL 05/24/2018 Comp Metabolic Ykl408 GLOB 2.3 g/dL 05/24/2018 Comp Metabolic Bpf918 A/G Ratio 2.0 Ratio 05/24/2018 Comp Metabolic Phi486 Osmo 279 mOsmo 05/24/2018 Cbc With Differential [...] 33.2 pg 05/24/2018 Cbc With Differential Ord2 Concho% 6.5 % 05/24/2018 Cbc With Differential Ord2 MCHC 33.9 pg 05/24/2018 Cbc With Differential Ord2 Eos% 2.5 % 05/24/2018 Cbc With Differential Ord2 PLT 331 K/ul 05/24/2018 Cbc With Differential Ord2 Baso% 0.3 % 05/24/2018 Cbc With Differential Ord2 RDW 12.7 % 05/24/2018 Cbc With Differential Ord2 Neut ABS# 3.15 K/ul 05/24/2018 Cbc With Differential Ord2 Lymph ABS# 2.32 K/ul 05/24/2018 Cbc With Differential Ord2 Concho ABS# 0.4 K/ul 05/24/2018 Cbc With Differential [...] hTSH II 1.28 uIU/mL 01/12/2017 Comp Metabolic Dth172 NA 136 mEq/L 04/29/2016 Comp Metabolic Mae076 K 3.8 mEq/L 04/29/2016 Comp Metabolic Vig719 CL 101 mEq/L 04/29/2016 Comp Metabolic Yrg452 CO2 32.0 mEq/L 04/29/2016 Comp Metabolic Vln191 ANION GAP 7 04/29/2016 Comp Metabolic Jsy920 GLUCOSE 100 mg/dL 04/29/2016 Comp Metabolic Icy452 Creat 0.7 mg/dL 04/29/2016 Comp Metabolic Djo480 eGFR 99 ml/min/1.73m2 04/29/2016 Comp Metabolic Pmk033 BUN 11 mg/dL 04/29/2016 Comp Metabolic Wfs896 B/C Ratio 16.4 Ratio 04/29/2016 Comp Metabolic Phk506 CALCIUM 9.7 mg/dL 04/29/2016 Comp Metabolic Ytn868 ALK PHOS 49 U/L 04/29/2016 Comp Metabolic Hlr813 AST(SGOT) 11 U/L 04/29/2016 Comp Metabolic Zoi779 ALT(SGPT) 10 U/L 04/29/2016 Comp Metabolic Qhy536 BILI T 0.6 mg/dL 04/29/2016 Comp Metabolic Fuv365 ALBUMIN 4.3 g/dL 04/29/2016 Comp Metabolic Zfp509 TPRO 6.9 g/dL 04/29/2016 Comp Metabolic Prj203 GLOB 2.6 g/dL 04/29/2016 Comp Metabolic Fxp023 A/G Ratio 1.7 Ratio 04/29/2016 Comp Metabolic Olx342 Osmo 271 mOsmo 04/29/2016 Lipid Ord30 CHOL [...] 58.1 % 04/29/2016 Cbc With Differential Ord2 MCV 96.5 fl 04/29/2016 Cbc With Differential Ord2 Lymph% 31.8 % 04/29/2016 Cbc With Differential Ord2 MCH 32.7 pg 04/29/2016 Cbc With Differential Ord2 Concho% 7.2 % 04/29/2016 Cbc With Differential Ord2 MCHC 33.9 pg 04/29/2016 Cbc With Differential Ord2 Eos% 2.7 % 04/29/2016 Cbc With Differential Ord2 PLT 306 K/ul 04/29/2016 Cbc With Differential Ord2 Baso% 0.2 % 04/29/2016 Cbc With Differential Ord2 RDW 13.1 % 04/29/2016 Cbc With Differential Ord2 Neut ABS# 5.06 K/ul 04/29/2016 Cbc With Differential Ord2 Lymph ABS# 2.78 K/ul 04/29/2016 Cbc With Differential Ord2 Concho ABS# 0.6 K/ul 04/29/2016 Cbc With Differential Ord2 Eos ABS# 0.2 K/ul 04/29/2016 Cbc With Differential Ord2 Baso ABS# 0.0 K/ul 04/29/2016 Tsh Ord6 hTSH II 2.07 uIU/mL 04/29/2016 Cbc With Differential Ord2 WBC 11.49 K/ul 01/26/2016 Cbc With Differential Ord2 RBC 4.74 M/ul 01/26/2016 Cbc With Differential Ord2 HGB 15.5 g/dl 01/26/2016 Cbc With Differential Ord2 HCT 45.6 % 01/26/2016 Cbc With Differential Ord2 Neut% 63.1 % 01/26/2016 Cbc With Differential Ord2 MCV 96.2 fl 01/26/2016 Cbc With Differential Ord2 Lymph% 26.8 % 01/26/2016 Cbc With Differential Ord2 MCH 32.7 pg 01/26/2016 Cbc With Differential Ord2 Concho% 7.5 % 01/26/2016 Cbc With Differential Ord2 [...] 3.08 K/ul 01/26/2016 Cbc With Differential Ord2 Concho ABS# 0.9 K/ul 01/26/2016 Cbc With Differential [...] hTSH II 2.28 uIU/mL 01/26/2016 Comp Metabolic Nik130 NA 140 mEq/L 01/26/2016 Comp Metabolic Okj163 K 3.9 mEq/L 01/26/2016 Comp Metabolic Lwk719 CL 104 mEq/L 01/26/2016 Comp Metabolic Qbx077 CO2 25.0 mEq/L 01/26/2016 Comp Metabolic Qpi397 ANION GAP 15 01/26/2016 Comp Metabolic Cxe716 GLUCOSE 112 mg/dL 01/26/2016 Comp Metabolic Roe487 Creat 0.7 mg/dL 01/26/2016 Comp Metabolic Kgz317 eGFR 96 ml/min/1.73m2 01/26/2016 Comp Metabolic Qzr957 BUN 8 mg/dL 01/26/2016 Comp Metabolic Vtx916 B/C Ratio 11.6 Ratio 01/26/2016 Comp Metabolic Moh751 CALCIUM 10.4 mg/dL 01/26/2016 Comp Metabolic Bmw860 ALK PHOS 59 U/L 01/26/2016 Comp Metabolic Jhl351 AST(SGOT) 17 U/L 01/26/2016 Comp Metabolic Lrq357 ALT(SGPT) 16 U/L 01/26/2016 Comp Metabolic Ufr256 BILI T 0.4 mg/dL 01/26/2016 Comp Metabolic Bah621 ALBUMIN 4.6 g/dL 01/26/2016 Comp Metabolic Ksm727 TPRO 7.4 g/dL 01/26/2016 Comp Metabolic Cyf423 GLOB 2.8 g/dL 01/26/2016 Comp Metabolic Dzp780 A/G Ratio 1.6 Ratio 01/26/2016 Comp Metabolic Ile998 Osmo 278 mOsmo 01/26/2016 Review of Systems [...] lips 12/03/2016 None Full Exam - General 1995 Ears/Nose/Throat oral cavity/pharynx/larynx Overall: oral mucosa clear 12/03/2016 None Full Exam - General 1994 Ears/Nose/Throat oral cavity/pharynx/larynx Posterior Pharynx: clear post nasal drainage 12/03/2016 None Full Exam - General 1995 Ears/Nose/Throat otoscopic exam Overall: external auditory canals clear 12/03/2016 None Full Exam - General 1995 Ears/Nose/Throat otoscopic exam Tympanic membrane: air-fluid level [...] J0696 12/30/2015 URINALYSIS NONAUTO W/O SCOPE CPT-4: 66374 01/09/2015 C URINE RT (URINE CULTURE/COLONY COUNT) CPT-4: 29669 01/09/2015 ROCEPHIN, PER 250 MG CPT- 4: J0696 01/05/2013 PREV VISIT EST AGE 40-64 CPT-4: 59397 11/18/2011 Vital Signs Date Vital 06/12/2019 Blood Pressure 1: 120/76 Code: 8480-6 BMI: 23.8 Code: 32120-3 Heart Rate 1: 69 bpm Height: 5'2" SpO2: 99% Weight: 128 lbs 03/02/2019 Blood Pressure 1: 140/76 Code: 8480-6 BMI: 24.5 Code: 02293-5 Heart Rate 1: 94 bpm Height: 5'2" SpO2: 99% Weight: 132 lbs 05/19/2018 Blood Pressure 1: 118/80 Code: 8480-6 BMI: 24.4 Code: 56157-8 Heart Rate 1: 67 bpm Height: 5'2" SpO2: 98% Weight: 131 lbs 06/27/2017 Blood Pressure 1: 138/84 Code: 8480-6 BMI: 25.2 Code: 64312-6 Heart Rate 1: 92 bpm Height: 5'2" SpO2: 98% Weight: 135 lbs 8 oz 04/22/2017 Blood Pressure 1: 122/78 Code: 8480-6 BMI: 27.0 Code: 34941-9 Heart Rate 1: 82 bpm Height: 5'2" SpO2: 98% Weight: 145 lbs 01/11/2017 Blood Pressure 1: 124/76 Code: 8480-6 Heart Rate 1: 79 bpm Height: 5'1" SpO2: 95% 12/03/2016 Blood Pressure 1: 140/86 Code: 8480-6 BMI: 28.3 Code: 67654-7 Heart Rate 1: 80 bpm Height: 5'2" SpO2: 98% Weight: 152 lbs 01/26/2016 Blood Pressure 1: 120/82 Code: 8480-6 BMI: 27.5 Code: 70424-3 Heart Rate 1: 78 bpm Height: 5'2" Weight: 148 lbs 12/30/2015 Blood Pressure 1: 122/78 Code: 8480-6 Heart Rate 1: 88 bpm SpO2: 96% 01/09/2015 Blood Pressure 1: 138/88 Code: 8480-6 BMI: 28.8 Code: 18091-3 Heart Rate 1: 80 bpm Height: 5'2" Weight: 155 lbs 11/29/2014 Blood Pressure 1: 128/80 Code: 8480-6 BMI: 29.2 Code: 98151-2 Heart Rate 1: 80 bpm Height: 5'2" Weight: 157 lbs 08/22/2014 Blood Pressure 1: 130/88 Code: 8480-6 Weight: 160 lbs 06/25/2014 Blood Pressure 1: 124/76 Code: 8480-6 BMI: 29.9 Code: 18493-3 Heart Rate 1: 72 bpm Height: 5'2" Weight: 161 lbs 02/18/2014 Blood Pressure 1: 128/84 Code: 8480-6 BMI: 30.9 Code: 97149-9 Heart Rate 1: 76 bpm Height: 5'2" Weight: 166 lbs 09/13/2013 Blood Pressure 1: 126/82 Code: 8480-6 BMI: 30.1 Code: 37907-4 Heart Rate 1: 80 bpm Height: 5'2" Weight: 162 lbs 06/28/2013 Blood Pressure 1: 122/84 Code: 8480-6 BMI: 30.1 Code: 41737-5 Heart Rate 1: 84 bpm Height: 5'2" Weight: 162 lbs 02/23/2013 Blood Pressure 1: 124/86 Code: 8480-6 BMI: 30.1 Code: 29089-1 Heart Rate 1: 80 bpm Height: 5'2" Weight: 162 lbs 01/05/2013 Blood Pressure 1: 128/78 Code: 8480-6 BMI: 29.0 Code: 49840-5 Heart Rate 1: 80 bpm Height: 5'2" Temperature: 36.6 (C) / 97.8 (F) Weight: 156 lbs 11/01/2012 Blood Pressure 1: 134/88 Code: 8480-6 BMI: 30.5 Code: 18875-5 Heart Rate 1: 80 bpm Height: 5'2" Weight: 164 lbs 08/17/2012 Blood Pressure 1: 114/70 Code: 8480-6 BMI: 28.8 Code: 72209-2 Heart Rate 1: 68 bpm Height: 5'2" Weight: 155 lbs 02/14/2012 Blood Pressure 1: 126/82 Code: 8480-6 BMI: 29.5 Code: 65408-1 Heart Rate 1: 68 bpm Height: 5'1" Respiratory Rate: 16 bpm Weight: 156 lbs 11/18/2011 Blood Pressure 1: 104/72 Code: 8480-6 BMI: 28.6 Code: 25422-6 Heart Rate 1: 20 bpm Height: 5'2" Respiratory Rate: 16 bpm Weight: 154 lbs 10/20/2011 Blood Pressure 1: 137/81 Code: 8480-6 BMI: 28.8 Code: 12800-3 Heart Rate 1: 78 bpm Height: 5'2" [...] sinus congestion Alleviating Factors medication 01/05/2013 Ruby Desai plus. helped her sleep sore throat Pertinent [...] -states she will occasionally check it at [facility] and states it is less than 140/90 [...] data Encounters Encounter Performer Location Codes Date ([id number]) PREV VISIT EST AGE 40-64 Diagnosis: Encounter for gynecological examination (general) (routine) without abnormal findings[ICD10: Z01.419] Ira Ely MD, [facility] CPT-4: 16424 06/12/2019 ([id number]) 59024 EST. PATIENT, LEVEL III Diagnosis: Acute upper respiratory infection, unspecified[ICD10: J06.9] Diagnosis: Other allergic rhinitis[ICD10: J30.89] Ira Ely MD, [facility] CPT-4: 97661 03/02/2019 ([id number]) 80362 EST. PATIENT, LEVEL III Diagnosis: Essential (primary) hypertension[ICD10: I10] Diagnosis: Mixed hyperlipidemia[ICD10: E78.2] [facility] CPT- 4: 99278 05/19/2018 ([id number]) Miscellaneous no charge Diagnosis: Overweight[ICD10: E66.3] [facility] CPT-4: 40231 06/27/2017 ([id number]) Miscellaneous no charge Diagnosis: Overweight[ICD10: E66.3] [facility] CPT-4: 02012 04/22/2017 ([id number]) 39555 EST. PATIENT, LEVEL III Diagnosis: Edema of left eye, unspecified eyelid[ICD10: H02.846] Diagnosis: Localized swelling, mass and lump, head[ICD10: R22.0] [facility] CPT-4: 91104 01/11/2017 [id number] EST. PATIENT, LEVEL IV Diagnosis: Dizziness and giddiness[ICD10: R42] Diagnosis: Other allergic rhinitis[ICD10: J30.89] Radha Ely MD, [facility] CPT- 4: 71492 12/03/2016 [id number] EST. PATIENT, LEVEL IV Diagnosis: Acute laryngopharyngitis[ICD10: J06.0] Diagnosis: Acute recurrent maxillary sinusitis[ICD10: J01.01] Diagnosis: Cough[ICD10: R05] Radha Ely MD, [facility] CPT-4: 69542 01/26/2016 41858 EST. PATIENT, LEVEL IV Diagnosis: Streptococcal pharyngitis[ICD10: J02.0] Diagnosis: Acute recurrent maxillary sinusitis[ICD10: J01.01] Radha Ely MD, [facility] CPT-4: 26217 12/30/2015 ([id number]) 38785 EST. PATIENT, LEVEL III Diagnosis: Urinary tract infection[ICD9: 599.0] Ira Ely MD, [facility] CPT-4: 65495 01/09/2015 ([id number]) Miscellaneous no charge Diagnosis: OVERWEIGHT[ICD9: 278.02] Tea Ely MD, [facility] CPT-4: 96441 11/29/2014 ([id number]) Miscellaneous no charge Diagnosis: OVERWEIGHT[ICD9: 278.02] Ira Ely MD, [facility] CPT-4: 92850 06/25/2014 ([id number]) 52461 EST. PATIENT, LEVEL IV Diagnosis: ESSENTIAL HYPERTENSION[SNOMED: 11895138] Diagnosis: MIGRAINE NOS/NOT INTRCBL[ICD9: 346.90] Diagnosis: Pelvic pain in female[ICD9: 625.9] Ira Ely MD [facility] CPT- 4: 34405 02/18/2014 ([id number]) Miscellaneous no charge Diagnosis: OBESITY[ICD9: 278.00] Iar Ely MD, [facility] CPT-4: 97902 09/13/2013 ([id number]) 96575 EST. PATIENT, LEVEL III Diagnosis: ESSENTIAL HYPERTENSION[SNOMED: 42097493] Diagnosis: MIGRAINE NOS/NOT INTRCBL[ICD9: 346.90] Tea Ely MD, [facility] CPT-4: 11035 06/28/2013 ([id number]) Miscellaneous no charge Diagnosis: OVERWEIGHT[ICD9: 278.02] Tea Ely MD, [facility] CPT-4: 30133 02/23/2013 ([id number]) 86710 EST. PATIENT, LEVEL III Diagnosis: ACUTE URI[ICD9: 465.9] Diagnosis: COUGH[ICD9: 786.2] Diagnosis: OVERWEIGHT[ICD9: 278.02] Ira Ely MD, [facility] CPT-4: 47053 01/05/2013 ([id number]) 12082 EST. PATIENT, LEVEL III Diagnosis: ESSENTIAL HYPERTENSION[SNOMED: 64854816] Diagnosis: Obesity[ICD9: 278.00] Tea Ely MD, [facility] CPT-4: 33204 11/01/2012 ([id number]) 13746 EST. PATIENT, LEVEL IV Diagnosis: ESSENTIAL HYPERTENSION[SNOMED: 16347649] Diagnosis: Migraine headache[ICD9: 346.90] Ira Ely MD, [facility] CPT-4: 88541 08/17/2012 ([id number]) 89006 EST. PATIENT, LEVEL II Diagnosis: Overweight (BMI 25.0-29.9)[ICD9: 278.02] Tea Ely MD, [facility] CPT-4: 38264 02/14/2012 73749 EST. PATIENT, LEVEL IV Diagnosis: Overweight[ICD9: 278.02] Diagnosis: ESSENTIAL HYPERTENSION[SNOMED: 33459945] Diagnosis: Pharyngitis[ICD9: 462] Ira Ely MD, [facility] CPT-4: 77743 10/20/2011 Plan of Care Planned Activity Notes Codes Status Date Care Plan: PAP 2 Pending 06/13/2019 Visit Plan: Well Adult Female - exam [...] for colonoscopy 06/12/2019 Appointment: Ira Morales WPtel: [phone] Well Woman 06/12/2019 Patient Education: Patient Medication Summary Completed 06/12/2019 Care Plan: Referral Order SNOMED-CT : [id number] Pending 06/12/2019 Visit Plan: URI - Pt [...] allergy spray. 03/02/2019 Appointment: Ira Morales WPtel: [address] [place], [place] [phone] (15 min) Moderate 03/02/2019 Patient Education: Patient Medication Summary Completed 03/02/2019 Appointment: Radha Penaloza WPtel: [address] [place], [place] [phone] (15 min) Moderate 09/22/2018 Appointment: Radha Penaloza WPtel: [address] [place], [place] [phone] (15 min) Moderate 09/21/2018 Appointment: Ira Morales WPtel: [address] [place], [place] [id number] (15 min) Moderate 06/23/2018 Appointment: Ira Morales WPtel: [address] [place], [place] [id number] (15 min) Moderate 06/22/2018 Visit Plan: Hypertension - well controlled - continue with current medications, continue with no added salt diet. Pt has been encouraged to exercise daily. The pt has been advised to call the office if there are any acute concerns about change in blood pressure readings at home. Recommend patient start seeing a interactive media marketing strategist for yearly skin checks/monitoring of moles 05/19/2018 Visit Plan: Hypertension - well controlled - continue with current medications, continue with no added salt diet. Pt has been encouraged to exercise daily. The pt has been advised to call the office if there are any acute concerns about change in blood pressure readings at home. Recommend patient start seeing a interactive media marketing strategist for yearly skin checks/monitoring of moles 05/19/2018 Appointment: Ira Morales WPtel: [facility] [phone] (15 min) Moderate 05/19/2018 Patient Education: Patient Medication Summary Completed 05/19/2018 Visit Plan: Overweight - chronic issue with this patient. The pt has been counseled about diet changes, calorie restriction, and need to exercise. Pt will RTC in one month for weight check. 06/27/2017 Appointment: Ira Morales WPtel: [phone] (15 min) Moderate 06/27/2017 Patient Education: Patient Medication Summary Completed 06/27/2017 Patient Education: Obesity Completed 06/27/2017 Visit Plan: Overweight - chronic issue with this patient. The pt has been counseled about diet changes, calorie restriction, and need to exercise. Pt will RTC in one month for weight check. 04/22/2017 Appointment: Ira Morales WPtel: [phone] (30 min) Complex 04/22/2017 Patient Education: Patient Medication Summary Completed 04/22/2017 Patient Education: Obesity Completed 04/22/2017 Visit Plan: Left tdo-pqapniucufxvjo-ohkzdtjh-Dr Ely in to evaluate patient-plan for besivance eye drops and zpack to cover H.flu-CT scan sinus for further evaluation-will also check TSH today in the office- patient verbalized understanding of plan. 01/11/2017 Appointment: Ira Morales WPtel: [address] [phone] (30 min) Complex 01/11/2017 Patient Education: [...] interventions. 12/03/2016 [facility] ([facility] min) Complex 12/03/2016 Patient Education: Patient Medication Summary Completed 12/03/2016 [phone] (15 min) Moderate 04/01/2016 Visit Plan: Sinusitis [...] Hypertension Completed 02/18/2014 Appointment: Ira Morales WPtel: [address] [place], [place] [phone] Other 02/15/2014 Appointment: Ira Morales WPtel: [address] [place], [place] [phone] Nurse Visit 09/13/2013 Patient Education: Patient Medication [...] weight check. 06/28/2013 Appointment: Ira Morales WPtel: [address] [place], [place] [phone] Follow up 06/28/2013 Patient Education: Patient Medication Summary Completed 06/28/2013 Patient Education: Hypertension Completed 06/28/2013 Visit Plan: Weight and blood pressure check 02/23/2013 Appointment: Ira Morales WPtel: [address] [place], [place] [phone] [place] [address] Follow up 02/23/2013 Patient Education: Patient Medication Summary Completed 02/23/2013 Visit Plan: URI -cough- Pt advised to increase fluids, vitamin C. Discussed natural and expected course of this diagnosis and need to alert me if symtpoms do not follow expected course, or if any worse. RX sent to patient's pharmacy. Rocephin injection today in the office. Overweight-refill phentermine 01/05/2013 Appointment: Ira Morales WPtel: [address] [place], [place] [phone] Sick 01/05/2013 Patient Education: Patient Medication Summary [...] pressure elevated. 11/01/2012 Appointment: Ira Morales WPtel: [phone] Physical 11/01/2012 Patient Education: Patient Medication Summary [...] 2 weeks. 08/17/2012 Appointment: Ira Morales WPtel: [address] [place], [place] [phone] [facility] 08/17/2012 Patient Education: Patient Medication Summary Completed 08/17/2012 Patient Education: High Blood Pressure: Essential Hypertension Completed 08/17/2012 Appointment: Tea Ely WPtel: [address] [place], [place] [phone] Surgical Procedure 07/11/2012 Appointment: Tea Ely WPtel: [address] [place], [place] [phone] Surgical Procedure 02/22/2012 Visit Plan: Overweight - [...] weight check. 02/14/2012 Appointment: Tea Ely WPtel: [facility] Other 02/14/2012 Patient Education: Patient Medication [...] scheduled for a punch biopsy. 11/18/2011 Appointment: Silvina Elyy WPtel: [facility] Pap Only 11/18/2011 Patient Education: Patient Medication Summary Completed 11/18/2011 Visit Plan: Overweight - chronic issue with this patient. The pt has been counseled about diet changes, calorie restriction, and need to exercise. Pt will RTC in one month for weight check. Pharyngitis-Discussed na rafi and expected course of this diagnosis and [...] at home. 10/20/2011 Appointment: Ira Morales WPtel: [phone] [place] Other 10/20/2011 Patient Education: Patient Medication Summary Completed 10/20/2011 Patient Education: High Blood Pressure: Essential Hypertension Completed 10/20/2011 Appointment: Ira Morales WPtel: [phone] Other 09/28/2011 Referral: Palmer Buitrago Referral Appointment Requested Instructions Comment . Overweight - chronic issue with this patient. The pt has been counseled about diet changes, calorie restriction, and need to exercise. Pt will RTC in one month for weight check. . Hypertension - well controlled - continue [...] evening, increase to BID after 2 weeks. refill phentermine x 1 month then stop . Overweight - chronic issue with this patient. The pt has been counseled about diet changes, calorie restriction, and need to exercise. Pt will RTC in one month for weight check. . Allergies - chronic - recommended pt [...] the office for further instructions/medication interventions. . Hypertension - well controlled - continue with current medications, continue with no added salt diet. Pt has been encouraged to exercise daily. The pt has been advised to call the office if there are any acute concerns about change in blood pressure readings at home. Recommend patient start seeing a interactive media marketing strategist for yearly skin checks/monitoring of moles . Hypertension - well controlled - continue with current medications, continue with no added salt diet. Pt has been encouraged to exercise daily. The pt has been advised to call the office if there are any acute concerns about change in blood pressure readings at home. Recommend patient start seeing a interactive media marketing strategist for yearly skin checks/monitoring of moles . [...] in one month for weight check. . Weight and blood pressure check . Urinary Tract Infection-discussed natural and expected [...] diarrhea. Patient verbalized understanding of plan. . URI -cough- Pt advised to increase fluids, vitamin C. Discussed natural and expected course of this diagnosis and need to alert me if symtpoms do not follow expected course, or if any worse. RX sent to patient's pharmacy. Rocephin injection today in the office. Overweight-refill phentermine . Well Adult Female - exam completed. [...] be scheduled for a punch biopsy. . Overweight - chronic issue with this [...] blood pressure-call if blood pressure elevated. . Strep throat - pt give rx [...] if symptoms do not show improvement. . Overweight - chronic issue with this [...] change in blood pressure readings at home. [facility] REFER TO DR BUITRAGO FOR [...] constipation -referral to Dr Buitrago for colonoscopy zyrtec or kenan salt water gargles start [...] spray in the nasal steroid allergy spray. . Left wvm-gnandhcwdvxusg-tonaakfs-Dr Ely in to evaluate patient-plan for besivance eye drops and zpack to cover H.flu-CT scan sinus for further evaluation-will also check TSH today in the office-patient verbalized understanding of plan. . Hypertension - well controlled - continue with current medications, continue with no added salt diet. Pt has been encouraged to exercise daily. The pt has been advised to call the office if there are any acute concerns about change in blood pressure readings at home. Migraines-well controlled-refill zomig Obesity-refill phentermine-f/u in 1 month for weight check. . Sinusitis - Pt has acute infection [...]
--- OUTSIDE RECORDS SUMMARY | 2019-07-06 10:09 | XMS REPORT | CCD ---
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/18/[address]: 473084711 Nonsmoker 09/27/2011 Has the patient ever used [...] Fill Instructions amoxicillin 500 mg tablet RxNorm: 469668 1 Tablet(s) PO TID 03/02/2019 03/08/2019 Inactive Zomig 5 mg tablet RxNorm: 087505 TAKE ONE TABLET BY MOUTH ONCE DAILY NEEDED 05/30/2018 No Stop Date Active hydrochlorothiazide 25 mg tablet RxNorm: 473577 1 Tablet(s) PO daily TAKE ONE TABLET BY MOUTH ONCE DAILY 05/19/2018 08/11/2019 Active patient to call when needs refills hydrochlorothiazide 25 mg tablet RxNorm: 466040 TAKE ONE TABLET BY MOUTH ONCE DAILY 04/25/2018 05/18/2018 Inactive hydrochlorothiazide 25 mg tablet RxNorm: 016227 TAKE ONE TABLET BY MOUTH ONCE DAILY 10/24/2017 04/24/2018 Inactive phentermine 37.5 mg capsule RxNorm: 224920 1 Capsule(s) PO daily 1 po q am 1/2 tab po q afternoon 06/27/2017 07/26/2017 Inactive phentermine 37.5 mg capsule RxNorm: 563841 1 Capsule(s) PO daily 1 po q am 1/2 tab po q afternoon 04/22/2017 05/21/2017 Inactive Zomig 5 mg tablet RxNorm: 517648 TAKE ONE TABLET BY MOUTH ONCE DAILY NEEDED 04/18/2017 05/23/2017 Inactive hydrochlorothiazide 25 mg tablet RxNorm: 385322 TAKE ONE TABLET BY MOUTH ONCE DAILY 04/18/2017 10/14/2017 Inactive Zithromax Z-Cameron 250 mg tablet RxNorm: 419432 1 Tablet(s) PO UD 01/11/2017 01/15/2017 Inactive Besivance 0.6 % eye drops,suspension RxNorm: 185970 1 Drop(s) OPH TID 01/11/2017 01/17/2017 Inactive ciprofloxacin 0.3 % eye drops RxNorm: 617041 Drop(s) OPH 1-2 drops every 2 hours while awake x 2 days, then every 4 hour x 5 days 12/10/2016 No Stop Date Active meclizine 25 mg tablet RxNorm: 958072 1 Tablet(s) PO TID as needed 12/03/2016 12/12/2016 Inactive Zithromax Z-Cameron 250 mg tablet RxNorm: 054544 1 Tablet(s) PO UD 12/03/2016 01/10/2017 Inactive Lipitor 10 mg tablet RxNorm: 466661 Tablet(s) 1 Tablet(s) PO QPM TAKE ONE TABLET BY MOUTH ONCE DAILY IN THE EVENING 03/22/2016 05/18/2018 Inactive hydrochlorothiazide 25 mg tablet RxNorm: 240048 Tablet(s) PO 03/22/2016 08/18/2016 Inactive TAKE ONE TABLET BY MOUTH EVERY DAY clonidine HCl 0.1 mg tablet RxNorm: 714354 1/2 Tablet(s) PO BID as needed for hot flashes 02/19/2016 03/19/2016 Inactive Zomig 5 mg tablet RxNorm: 516041 1 Tablet(s) PO daily 02/02/2016 04/17/2017 Inactive TAKE ONE TABLET BY MOUTH NEEDED please dispense generic Keflex 500 mg capsule RxNorm: 236273 1 Capsule(s) PO TID 01/26/2016 02/04/2016 Inactive hydrochlorothiazide 25 mg tablet RxNorm: 869632 1 Tablet(s) PO daily TAKE ONE TABLET BY MOUTH EVERY DAY 01/15/2016 03/14/2016 Inactive Lipitor 10 mg tablet RxNorm: 635742 1 Tablet(s) PO QPM TAKE ONE TABLET BY MOUTH ONCE DAILY IN THE EVENING 01/15/2016 03/14/2016 Inactive Kenalog 40 mg/mL suspension for injection RxNorm: 6156360 Milliliter(s) Inj 12/30/2015 12/30/2015 Inactive amoxicillin 500 mg capsule RxNorm: 484838 1 Capsule(s) PO TID 12/30/2015 01/05/2016 Inactive ceftriaxone 500 mg solution for injection RxNorm: 1895887 Inj 12/30/2015 12/30/2015 Inactive hydrochlorothiazide 25 mg tablet RxNorm: 696741 1 Tablet(s) PO daily TAKE ONE TABLET BY MOUTH EVERY DAY 11/14/2015 01/12/2016 Inactive Patient needs to make an appt Lipitor 10 mg tablet RxNorm: 328100 1 Tablet(s) PO QPM TAKE ONE TABLET BY MOUTH ONCE DAILY IN THE EVENING 11/14/2015 01/12/2016 Inactive Patient needs to make an appt clonidine HCl 0.1 mg tablet RxNorm: 026102 1/2 Tablet(s) PO BID as needed for hot flashes 02/14/2015 02/13/2015 Inactive clonidine HCl 0.1 mg tablet RxNorm: 468884 1/2 Tablet(s) PO BID as needed for hot flashes 02/14/2015 03/15/2015 Inactive Zomig 5 mg tablet RxNorm: 937627 1 Tablet(s) PO daily 02/13/2015 02/01/2016 Inactive TAKE ONE TABLET BY MOUTH NEEDED please dispense generic Bactrim DS 800 mg-160 mg tablet RxNorm: 771469 1 Tablet(s) PO BID 01/21/2015 01/20/2015 Inactive Bactrim DS 800 mg-160 mg tablet RxNorm: 268376 1 Tablet(s) PO BID 01/21/2015 01/27/2015 Inactive Cipro 500 mg tablet RxNorm: 307147 1 Tablet(s) PO BID 01/09/2015 01/15/2015 Inactive Pyridium 200 mg tablet RxNorm: 5594986 1 Tablet(s) PO TID PRN 01/09/2015 01/15/2015 Inactive phentermine 37.5 mg capsule RxNorm: 070975 1 Capsule(s) PO daily 1 po q am 1/2 tab po q afternoon 11/29/2014 12/28/2014 Inactive Lipitor 10 mg tablet RxNorm: 245073 TAKE ONE TABLET BY MOUTH ONCE DAILY IN THE EVENING 10/20/2014 10/14/2015 Inactive hydrochlorothiazide 25 mg tablet RxNorm: 605328 TAKE ONE TABLET BY MOUTH EVERY DAY 10/20/2014 10/14/2015 Inactive phentermine 37.5 mg capsule RxNorm: 489868 1 Capsule(s) PO daily 1 po q am 1/2 tab po q afternoon 08/22/2014 09/20/2014 Inactive Lipitor 10 mg tablet RxNorm: 446574 TAKE ONE TABLET BY MOUTH ONCE DAILY IN THE EVENING 07/18/2014 10/15/2014 Inactive hydrochlorothiazide 25 mg tablet RxNorm: 862317 TAKE ONE TABLET BY MOUTH EVERY DAY 07/18/2014 10/15/2014 Inactive Zomig 5 mg tablet RxNorm: 743186 1 Tablet(s) PO daily 07/17/2014 02/12/2015 Inactive TAKE ONE TABLET BY MOUTH NEEDED please dispense generic Lipitor 10 mg tablet RxNorm: 614934 1 Tablet(s) PO QPM 02/21/2014 06/20/2014 Inactive Lipitor 10 mg tablet RxNorm: 591659 1 Tablet(s) PO QPM 02/20/2014 02/20/2014 Inactive Zomig 5 mg tablet RxNorm: 398281 1 Tablet(s) PO daily 10/30/2013 07/16/2014 Inactive TAKE ONE TABLET BY MOUTH NEEDED please dispense generic phentermine 37.5 mg capsule RxNorm: 461199 1 Capsule(s) PO daily 1 po q am 1/ tab po q afternoon 09/13/2013 10/12/2013 Inactive Zomig 5 mg tablet RxNorm: 124823 1 Tablet(s) PO daily 06/28/2013 10/29/2013 Inactive TAKE ONE TABLET BY MOUTH NEEDED please dispense generic phentermine 37.5 mg capsule RxNorm: 019718 1 Capsule(s) PO daily 06/28/2013 07/27/2013 Inactive hydrochlorothiazide 25 mg tablet RxNorm: 965956 1 Tablet(s) PO TAKE ONE TABLET BY MOUTH EVERY DAY 06/25/2013 06/25/2013 Inactive hydrochlorothiazide 25 mg tablet RxNorm: 848100 1 Tablet(s) PO daily TAKE ONE TABLET BY MOUTH EVERY DAY 06/25/2013 11/13/2015 Inactive phentermine 37.5 mg capsule RxNorm: 464900 1 Capsule(s) PO daily 02/23/2013 03/24/2013 Inactive Zomig 5 mg tablet RxNorm: 839272 1 Tablet(s) PO daily 02/07/2013 06/27/2013 Inactive TAKE ONE TABLET BY MOUTH NEEDED Zomig 5 mg tablet RxNorm: 264772 Tablet(s) PO TAKE ONE TABLET BY MOUTH NEEDED 02/07/2013 05/29/2018 Inactive Rocephin 500 mg Solution for Injection RxNorm: 9826290 1.5 Milliliter(s) Inj 01/05/2013 01/05/2013 Inactive amoxicillin 500 mg capsule RxNorm: 935966 1 Capsule(s) PO TID 01/05/2013 01/11/2013 Inactive phentermine 37.5 mg capsule RxNorm: 844659 1 Capsule(s) PO daily 01/05/2013 02/03/2013 Inactive hydrochlorothiazide 25 mg tablet RxNorm: 174220 Tablet(s) PO TAKE ONE TABLET BY MOUTH EVERY DAY 12/07/2012 06/24/2013 Inactive phentermine 37.5 mg capsule RxNorm: 316571 1 Capsule(s) PO daily 11/01/2012 11/30/2012 Inactive Topamax 25 mg tablet RxNorm: 666646 1 Tablet(s) PO BID start with 25mg po in the evening and increase to twice daily after 2 weeks 08/17/2012 09/15/2012 Inactive hydrochlorothiazide 25 mg Tab RxNorm: 365099 Tablet(s) PO 05/01/2012 03/21/2016 Inactive TAKE ONE TABLET BY MOUTH EVERY DAY hydrochlorothiazide 25 mg tablet RxNorm: 507684 1 Tablet(s) PO daily 04/28/2012 04/30/2012 Inactive Zomig 5 mg tablet RxNorm: 353630 1 Tablet(s) PO 01/25/2012 02/06/2013 Inactive TAKE ONE TABLET BY MOUTH NEEDED Zomig 5 mg Tab RxNorm: 940863 1 Tablet(s) PO PRN 11/24/2011 11/23/2011 Inactive Zomig 5 mg Tab RxNorm: 137873 Tablet(s) PO 11/24/2011 01/24/2012 Inactive TAKE ONE TABLET BY MOUTH NEEDED phentermine 37.5 mg capsule RxNorm: 322622 1 Capsule(s) PO daily 10/20/2011 11/18/2011 Inactive Zomig 5 mg Tab RxNorm: 883234 1 Tablet(s) PO PRN No Start Date 11/23/2011 Inactive Zithromax Z-Cameron 250 mg Tab RxNorm: 536965 Tablet(s) PO No Start Date 11/17/2011 Inactive ciprofloxacin 0.3 % eye drops RxNorm: 242585 Drop(s) OPH 1-2 drops every 2 hours while awake x 2 days, then every 4 hour x 5 days No Start Date 12/09/2016 Inactive hydrochlorothiazide 25 mg Tab RxNorm: 651152 1 Tablet(s) PO daily No Start Date 04/27/2012 Inactive Medication Administered Medication Codes Instructions Start Date Status ceftriaxone 500 mg solution for injection RxNorm: 8637374 12/30/2015 No longer Active Kenalog 40 mg/mL suspension for injection RxNorm: 7829369 Milliliter 12/30/2015 No longer Active Rocephin 500 mg Solution for Injection RxNorm: 2027952 1.5Milliliter 01/05/2013 No longer Active Immunizations Vaccine [...] OVERWEIGHT ICD-9: 278.02 11/29/2014 ESSENTIAL HYPERTENSION SNOMED: 04869683 ICD-9: 401.9 02/18/2014 Pelvic pain in female [...] Item Item Code Result Date Comp Metabolic Pil791 NA 140 mEq/L 05/24/2018 Comp Metabolic Sch983 K 3.7 mEq/L 05/24/2018 Comp Metabolic Vrh358 CL 102 mEq/L 05/24/2018 Comp Metabolic Dej045 CO2 30.0 mEq/L 05/24/2018 Comp Metabolic Nhu737 ANION GAP 12 05/24/2018 Comp Metabolic Hpl412 GLUCOSE 101 mg/dL 05/24/2018 Comp Metabolic Hoo584 Creat 0.8 mg/dL 05/24/2018 Comp Metabolic Rqm429 eGFR 86 ml/min/1.73m2 05/24/2018 Comp Metabolic Nrv739 BUN 10 mg/dL 05/24/2018 Comp Metabolic Jua690 B/C Ratio 13.3 Ratio 05/24/2018 Comp Metabolic Qcb710 CALCIUM 10.1 mg/dL 05/24/2018 Comp Metabolic Tnc554 ALK PHOS 64 U/L 05/24/2018 Comp Metabolic Nxc387 AST(SGOT) 14 U/L 05/24/2018 Comp Metabolic Btr764 ALT(SGPT) 13 U/L 05/24/2018 Comp Metabolic Mfm980 BILI T 0.5 mg/dL 05/24/2018 Comp Metabolic Seb605 ALBUMIN 4.5 g/dL 05/24/2018 Comp Metabolic Svd661 TPRO 6.8 g/dL 05/24/2018 Comp Metabolic Pjd101 GLOB 2.3 g/dL 05/24/2018 Comp Metabolic Nqk839 A/G Ratio 2.0 Ratio 05/24/2018 Comp Metabolic Txl065 Osmo 279 mOsmo 05/24/2018 Cbc With Differential [...] 33.2 pg 05/24/2018 Cbc With Differential Ord2 [place]% 6.5 % 05/24/2018 Cbc With Differential Ord2 [...] 2.32 K/ul 05/24/2018 Cbc With Differential Ord2 [place] ABS# 0.4 K/ul 05/24/2018 Cbc With Differential [...] hTSH II 1.28 uIU/mL 01/12/2017 Comp Metabolic Hfu678 NA 136 mEq/L 04/29/2016 Comp Metabolic Ljb232 K 3.8 mEq/L 04/29/2016 Comp Metabolic Wzo332 CL 101 mEq/L 04/29/2016 Comp Metabolic Slg341 CO2 32.0 mEq/L 04/29/2016 Comp Metabolic Gtt958 ANION GAP 7 04/29/2016 Comp Metabolic Mpa292 GLUCOSE 100 mg/dL 04/29/2016 Comp Metabolic Fyj247 Creat 0.7 mg/dL 04/29/2016 Comp Metabolic Hzi308 eGFR 99 ml/min/1.73m2 04/29/2016 Comp Metabolic Ltu979 BUN 11 mg/dL 04/29/2016 Comp Metabolic Eph387 B/C Ratio 16.4 Ratio 04/29/2016 Comp Metabolic Gny482 CALCIUM 9.7 mg/dL 04/29/2016 Comp Metabolic Wht498 ALK PHOS 49 U/L 04/29/2016 Comp Metabolic Qsv068 AST(SGOT) 11 U/L 04/29/2016 Comp Metabolic Atu914 ALT(SGPT) 10 U/L 04/29/2016 Comp Metabolic Hmg847 BILI T 0.6 mg/dL 04/29/2016 Comp Metabolic Mqp039 ALBUMIN 4.3 g/dL 04/29/2016 Comp Metabolic Hgi111 TPRO 6.9 g/dL 04/29/2016 Comp Metabolic Sey138 GLOB 2.6 g/dL 04/29/2016 Comp Metabolic Img636 A/G Ratio 1.7 Ratio 04/29/2016 Comp Metabolic Ctp107 Osmo 271 mOsmo 04/29/2016 Lipid Ord30 CHOL [...] 32.7 pg 04/29/2016 Cbc With Differential Ord2 [place]% 7.2 % 04/29/2016 Cbc With Differential Ord2 [...] 2.78 K/ul 04/29/2016 Cbc With Differential Ord2 [place] ABS# 0.6 K/ul 04/29/2016 Cbc With Differential [...] 32.7 pg 01/26/2016 Cbc With Differential Ord2 [place]% 7.5 % 01/26/2016 Cbc With Differential Ord2 [...] 3.08 K/ul 01/26/2016 Cbc With Differential Ord2 [place] ABS# 0.9 K/ul 01/26/2016 Cbc With Differential [...] hTSH II 2.28 uIU/mL 01/26/2016 Comp Metabolic Jzl400 NA 140 mEq/L 01/26/2016 Comp Metabolic Ljm649 K 3.9 mEq/L 01/26/2016 Comp Metabolic Klu547 CL 104 mEq/L 01/26/2016 Comp Metabolic Nhp045 CO2 25.0 mEq/L 01/26/2016 Comp Metabolic Ukn025 ANION GAP 15 01/26/2016 Comp Metabolic Ehi870 GLUCOSE 112 mg/dL 01/26/2016 Comp Metabolic Abh859 Creat 0.7 mg/dL 01/26/2016 Comp Metabolic Lsc145 eGFR 96 ml/min/1.73m2 01/26/2016 Comp Metabolic Oxx796 BUN 8 mg/dL 01/26/2016 Comp Metabolic Yip478 B/C Ratio 11.6 Ratio 01/26/2016 Comp Metabolic Nui044 CALCIUM 10.4 mg/dL 01/26/2016 Comp Metabolic Kms851 ALK PHOS 59 U/L 01/26/2016 Comp Metabolic Oai025 AST(SGOT) 17 U/L 01/26/2016 Comp Metabolic Tvv087 ALT(SGPT) 16 U/L 01/26/2016 Comp Metabolic Qrc788 BILI T 0.4 mg/dL 01/26/2016 Comp Metabolic Znx727 ALBUMIN 4.6 g/dL 01/26/2016 Comp Metabolic Cfb963 TPRO 7.4 g/dL 01/26/2016 Comp Metabolic Cmz049 GLOB 2.8 g/dL 01/26/2016 Comp Metabolic Yhw876 A/G Ratio 1.6 Ratio 01/26/2016 Comp Metabolic Muw421 Osmo 278 mOsmo 01/26/2016 Review of Systems [...] clear 10/20/2011 None Procedures Procedure Codes Date PAP 2 CPT-4: 2908877 06/12/2019 TRIAMCINOLONE ACET INJ NOS CPT-4: J3301 12/30/2015 ROCEPHIN, PER 250 MG CPT- 4: J0696 12/30/2015 URINALYSIS NONAUTO W/O SCOPE CPT-4: 98133 01/09/2015 C URINE RT (URINE CULTURE/COLONY COUNT) CPT-4: 28763 01/09/2015 ROCEPHIN, PER 250 MG CPT- 4: J0696 01/05/2013 PREV VISIT EST AGE 40-64 CPT-4: 30382 11/18/2011 Vital Signs Date Vital 06/12/2019 Blood Pressure 1: 120/76 Code: 8480-6 BMI: 23.8 Code: 17459-8 Heart Rate 1: 69 bpm Height: 5'2" SpO2: 99% Weight: 128 lbs 03/02/2019 Blood Pressure 1: 140/76 Code: 8480-6 BMI: 24.5 Code: 67553-2 Heart Rate 1: 94 bpm Height: 5'2" SpO2: 99% Weight: 132 lbs 05/19/2018 Blood Pressure 1: 118/80 Code: 8480-6 BMI: 24.4 Code: 74362-8 Heart Rate 1: 67 bpm Height: 5'2" SpO2: 98% Weight: 131 lbs 06/27/2017 Blood Pressure 1: 138/84 Code: 8480-6 BMI: 25.2 Code: 85951-5 Heart Rate 1: 92 bpm Height: 5'2" SpO2: 98% Weight: 135 lbs 8 oz 04/22/2017 Blood Pressure 1: 122/78 Code: 8480-6 BMI: 27.0 Code: 98041-6 Heart Rate 1: 82 bpm Height: 5'2" SpO2: 98% Weight: 145 lbs 01/11/2017 Blood Pressure 1: 124/76 Code: 8480-6 Heart Rate 1: 79 bpm Height: 5'1" SpO2: 95% 12/03/2016 Blood Pressure 1: 140/86 Code: 8480-6 BMI: 28.3 Code: 39045-6 Heart Rate 1: 80 bpm Height: 5'2" SpO2: 98% Weight: 152 lbs 01/26/2016 Blood Pressure 1: 120/82 Code: 8480-6 BMI: 27.5 Code: 97481-5 Heart Rate 1: 78 bpm Height: 5'2" Weight: 148 lbs 12/30/2015 Blood Pressure 1: 122/78 Code: 8480-6 Heart Rate 1: 88 bpm SpO2: 96% 01/09/2015 Blood Pressure 1: 138/88 Code: 8480-6 BMI: 28.8 Code: 42038-7 Heart Rate 1: 80 bpm Height: 5'2" Weight: 155 lbs 11/29/2014 Blood Pressure 1: 128/80 Code: 8480-6 BMI: 29.2 Code: 02267-8 Heart Rate 1: 80 bpm Height: 5'2" Weight: 157 lbs 08/22/2014 Blood Pressure 1: 130/88 Code: 8480-6 Weight: 160 lbs 06/25/2014 Blood Pressure 1: 124/76 Code: 8480-6 BMI: 29.9 Code: 80909-1 Heart Rate 1: 72 bpm Height: 5'2" Weight: 161 lbs 02/18/2014 Blood Pressure 1: 128/84 Code: 8480-6 BMI: 30.9 Code: 66940-4 Heart Rate 1: 76 bpm Height: 5'2" Weight: 166 lbs 09/13/2013 Blood Pressure 1: 126/82 Code: 8480-6 BMI: 30.1 Code: 78364-4 Heart Rate 1: 80 bpm Height: 5'2" Weight: 162 lbs 06/28/2013 Blood Pressure 1: 122/84 Code: 8480-6 BMI: 30.1 Code: 32853-9 Heart Rate 1: 84 bpm Height: 5'2" Weight: 162 lbs 02/23/2013 Blood Pressure 1: 124/86 Code: 8480-6 BMI: 30.1 Code: 85554-4 Heart Rate 1: 80 bpm Height: 5'2" Weight: 162 lbs 01/05/2013 Blood Pressure 1: 128/78 Code: 8480-6 BMI: 29.0 Code: 67253-9 Heart Rate 1: 80 bpm Height: 5'2" Temperature: 36.6 (C) / 97.8 (F) Weight: 156 lbs 11/01/2012 Blood Pressure 1: 134/88 Code: 8480-6 BMI: 30.5 Code: 24463-7 Heart Rate 1: 80 bpm Height: 5'2" Weight: 164 lbs 08/17/2012 Blood Pressure 1: 114/70 Code: 8480-6 BMI: 28.8 Code: 87409-6 Heart Rate 1: 68 bpm Height: 5'2" Weight: 155 lbs 02/14/2012 Blood Pressure 1: 126/82 Code: 8480-6 BMI: 29.5 Code: 38580-0 Heart Rate 1: 68 bpm Height: 5'1" Respiratory Rate: 16 bpm Weight: 156 lbs 11/18/2011 Blood Pressure 1: 104/72 Code: 8480-6 BMI: 28.6 Code: 19162-3 Heart Rate 1: 20 bpm Height: 5'2" Respiratory Rate: 16 bpm Weight: 154 lbs 10/20/2011 Blood Pressure 1: 137/81 Code: 8480-6 BMI: 28.8 Code: 43784-7 Heart Rate 1: 78 bpm Height: 5'2" [...] she will occasionally check it at [facility] and states it is less than [...] data Encounters Encounter Performer Location Codes Date () PREV VISIT EST AGE 40-64 Diagnosis: Encounter for gynecological examination (general) (routine) without abnormal findings[ICD10: Z01.419] Ira [facility] MD, [facility] CPT-4: 36033 06/12/2019 ([id number]) 55808 EST. PATIENT, LEVEL III Diagnosis: Acute upper respiratory infection, unspecified[ICD10: J06.9] Diagnosis: Other allergic rhinitis[ICD10: J30.89] Ira Ely MD, [facility] CPT-4: 80797 03/02/2019 ([id number]) 90987 EST. PATIENT, LEVEL III Diagnosis: Essential (primary) hypertension[ICD10: I10] Diagnosis: Mixed hyperlipidemia[ICD10: E78.2] Ira Ely MD, [facility] CPT- 4: 60272 05/19/2018 ([id number]) Miscellaneous no charge Diagnosis: Overweight[ICD10: E66.3] [facility] CPT-4: 20147 06/27/2017 ([id number]) Miscellaneous no charge Diagnosis: Overweight[ICD10: E66.3] Ira Ely MD, [facility] CPT-4: 57567 04/22/2017 ([id number]) 66047 EST. PATIENT, LEVEL III Diagnosis: Edema of left eye, unspecified eyelid[ICD10: H02.846] Diagnosis: Localized swelling, mass and lump, head[ICD10: R22.0] Ira Ely MD, [facility] CPT-4: 97702 01/11/2017 12425 EST. PATIENT, LEVEL IV Diagnosis: Dizziness and giddiness[ICD10: R42] Diagnosis: Other allergic rhinitis[ICD10: J30.89] Radha Ely MD, [facility] CPT- 4: 47802 12/03/2016 36924 EST. PATIENT, LEVEL IV Diagnosis: Acute laryngopharyngitis[ICD10: J06.0] Diagnosis: Acute recurrent maxillary sinusitis[ICD10: J01.01] Diagnosis: Cough[ICD10: R05] Radha Ely MD, [facility] CPT-4: 85561 01/26/2016 75642 EST. PATIENT, LEVEL IV Diagnosis: Streptococcal pharyngitis[ICD10: J02.0] Diagnosis: Acute recurrent maxillary sinusitis[ICD10: J01.01] Radha Ely MD, [facility] CPT-4: 63105 12/30/2015 ([id number]) 57375 EST. PATIENT, LEVEL III Diagnosis: Urinary tract infection[ICD9: 599.0] Ira Ely MD, [facility] CPT-4: 75151 01/09/2015 ([id number]) Miscellaneous no charge Diagnosis: OVERWEIGHT[ICD9: 278.02] Tea [facility]ly MD, [facility] CPT-4: 94876 11/29/2014 ([id number]) Miscellaneous no charge Diagnosis: OVERWEIGHT[ICD9: 278.02] Ira Ely MD, [facility] CPT-4: 36228 06/25/2014 ([id number]) 75676 EST. PATIENT, LEVEL IV Diagnosis: ESSENTIAL HYPERTENSION[SNOMED: 66331364] Diagnosis: MIGRAINE NOS/NOT INTRCBL[ICD9: 346.90] Diagnosis: Pelvic pain in female[ICD9: 625.9] Ira Ely MD, [facility] CPT- 4: 50009 02/18/2014 ([id number]) Miscellaneous no charge Diagnosis: OBESITY[ICD9: 278.00] Ira Ely MD, [facility] CPT-4: 86632 09/13/2013 ([id number]) 07413 EST. PATIENT, LEVEL III Diagnosis: ESSENTIAL HYPERTENSION[SNOMED: 80710009] Diagnosis: MIGRAINE NOS/NOT INTRCBL[ICD9: 346.90] Tea Ely MD, [facility] CPT-4: 71423 06/28/2013 ([id number]) Miscellaneous no charge Diagnosis: OVERWEIGHT[ICD9: 278.02] [facility] CPT-4: 76261 02/23/2013 ([id number]) 31337 EST. PATIENT, LEVEL III Diagnosis: ACUTE URI[ICD9: 465.9] Diagnosis: COUGH[ICD9: 786.2] Diagnosis: OVERWEIGHT[ICD9: 278.02] Ira Ely MD, [facility] CPT-4: 63132 01/05/2013 ([id number]) 25051 EST. PATIENT, LEVEL III Diagnosis: ESSENTIAL HYPERTENSION[SNOMED: 11052679] Diagnosis: Obesity[ICD9: 278.00] Tea Ely MD, [facility] CPT-4: 80792 11/01/2012 ([id number]) 06197 EST. PATIENT, LEVEL IV Diagnosis: ESSENTIAL HYPERTENSION[SNOMED: 16245971] Diagnosis: Migraine headache[ICD9: 346.90] Ira Ely MD, [facility] CPT-4: 89795 08/17/2012 ([id number]) 04581 EST. PATIENT, LEVEL II Diagnosis: Overweight (BMI 25.0-29.9)[ICD9: 278.02] Tea Ely MD, [facility] CPT-4: 94269 02/14/2012 46387 EST. PATIENT, LEVEL IV Diagnosis: Overweight[ICD9: 278.02] Diagnosis: ESSENTIAL HYPERTENSION[SNOMED: 21784969] Diagnosis: Pharyngitis[ICD9: 462] [facility] CPT-4: 55220 10/20/2011 Plan of Care Planned Activity Notes Codes Status Date Visit Plan: Well Adult Female - exam completed. Pap and breast exam completed. Pt will be called with results of her testing. She was advised to continue with yearly annual exams. Safe sex practices discussed during office visit today. Call if any abnormal gynecologic issues during the next year, otherwise, RTC yearly or prn. Chronic constipation -referral to Dr Buitrago for colonoscopy 06/12/2019 Patient Education: Patient Medication Summary Completed 06/12/2019 Care Plan: Referral Order SNOMED-CT : [id number] Pending 06/12/2019 Visit Plan: URI - Pt [...] allergy spray. 03/02/2019 Appointment: Ira Morales WPtel: [phone] (15 min) Moderate 03/02/2019 Patient Education: Patient Medication Summary Completed 03/02/2019 Appointment: Radha Penaloza WPtel: [facility] (15 min) Moderate 09/22/2018 Appointment: Radha Penaloza WPtel: [facility] (15 min) Moderate 09/21/2018 Appointment: Ira Morales WPtel: [phone] [place] (15 min) Moderate 06/23/2018 Appointment: Ira Morales WPtel: [address] [place], [place] [phone] [place] (15 min) Moderate 06/22/2018 Visit Plan: Hypertension - well controlled - continue with current medications, continue with no added salt diet. Pt has been encouraged to exercise daily. The pt has been advised to call the office if there are any acute concerns about change in blood pressure readings at home. Recommend patient start seeing a director of broadcast for yearly skin checks/monitoring of moles 05/19/2018 Visit Plan: Hypertension - well controlled - continue with current medications, continue with no added salt diet. Pt has been encouraged to exercise daily. The pt has been advised to call the office if there are any acute concerns about change in blood pressure readings at home. Recommend patient start seeing a director of broadcast for yearly skin checks/monitoring of moles 05/19/2018 Appointment: Ira Morales WPtel: [facility] [place] [address] (15 min) Moderate 05/19/2018 Patient Education: Patient Medication Summary Completed 05/19/2018 Visit Plan: Overweight - chronic issue with this patient. The pt has been counseled about diet changes, calorie restriction, and need to exercise. Pt will RTC in one month for weight check. 06/27/2017 Appointment: Ira Morales WPtel: [facility] [place] [address] (15 min) Moderate 06/27/2017 Patient Education: Patient Medication Summary Completed 06/27/2017 Patient Education: Obesity Completed 06/27/2017 Visit Plan: Overweight - chronic issue with this patient. The pt has been counseled about diet changes, calorie restriction, and need to exercise. Pt will RTC in one month for weight check. 04/22/2017 Appointment: Ira Morales WPtel: [facility] [place] [phone] (30 min) Complex 04/22/2017 Patient Education: Patient Medication Summary Completed 04/22/2017 Patient Education: Obesity Completed 04/22/2017 Visit Plan: Left mcv-mrhdkxmbfeacve-jdmabeuz-Dr Ely in to evaluate patient-plan for besivance eye drops and zpack to cover H.flu-CT scan sinus for further evaluation-will also check TSH today in the office- patient verbalized understanding of plan. 01/11/2017 Appointment: Ira Morales WPtel: [phone] (30 min) Complex 01/11/2017 Patient Education: [...] for further instructions/medication interventions. 12/03/2016 App[facility]ment[facility]alo[facility] (30 min) Complex 12/03/2016 Patient Education: Patient Medication Summary Completed 12/03/2016 Appointment: [facility] Penaloza[facility] (15 min) Moderate 04/01/2016 Visit Plan: Sinusitis [...] Medication Summary Completed 12/30/2015 Care Plan: Abby Mata [place] Cancelled 12/30/2015 Patient Education: Patient Medication Summary [...] Hypertension Completed 02/18/2014 Appointment: [phone] Other 02/15/2014 Appointment: Ira Morales WPtel: [id number] [place] [address] Nurse Visit 09/13/2013 Patient Education: Patient Medication [...] weight check. 06/28/2013 Appointment: Ira Morales WPtel: [phone] Follow up 06/28/2013 Patient Education: Patient Medication Summary Completed 06/28/2013 Patient Education: Hypertension Completed 06/28/2013 Visit Plan: Weight and blood pressure check 02/23/2013 Appointment: Ira Morales WPtel: [address] [place], [place] [id number] [place] [address] Follow up 02/23/2013 Patient Education: Patient Medication Summary Completed 02/23/2013 Visit Plan: URI -cough- Pt advised to increase fluids, vitamin C. Discussed natural and expected course of this diagnosis and need to alert me if symtpoms do not follow expected course, or if any worse. RX sent to patient's pharmacy. Rocephin injection today in the office. Overweight-refill phentermine 01/05/2013 Appointment: Ira Morales WPtel: [phone] Sick 01/05/2013 Patient Education: Patient Medication Summary [...] pressure elevated. 11/01/2012 Appointment: Ira Morales WPtel: [id number] [place] [address] Physical 11/01/2012 Patient Education: Patient Medication Summary [...] 2 weeks. 08/17/2012 Appointment: Ira Morales WPtel: [address] [place], [place] [phone] [place] [address] Other 08/17/2012 Patient Education: Patient Medication Summary Completed 08/17/2012 Patient Education: High Blood Pressure: Essential Hypertension Completed 08/17/2012 Appointment: Tea Ely WPtel: [address] [place], [place] [phone] Surgical Procedure 07/11/2012 Appointment: Tea Ely WPtel: [address] [place] [address] Surgical Procedure 02/22/2012 Visit Plan: Overweight - [...] weight check. 02/14/2012 Appointment: Tea Ely WPtel: [address] [place], [place] [phone] Other 02/14/2012 Patient Education: Patient Medication Summary [...] punch biopsy. 11/18/2011 Appointment: Tea Ely WPtel: [address] [place], [place] [phone] Pap Only 11/18/2011 Patient Education: Patient Medication [...] at home. 10/20/2011 Appointment: Ira Morales WPtel: [address] [place], [place] [phone] Other 10/20/2011 Patient Education: Patient Medication Summary Completed 10/20/2011 Patient Education: High Blood Pressure: Essential Hypertension Completed 10/20/2011 Appointment: Ira Morales WPtel: [address] [place], [place] [phone] Other 09/28/2011 Referral: Palmer Buitrago Referral Appointment [...] at home. Recommend patient start seeing a director of broadcast for yearly skin checks/monitoring of moles . Hypertension - well controlled - continue with current medications, continue with no added salt diet. Pt has been encouraged to exercise daily. The pt has been advised to call the office if there are any acute concerns about change in blood pressure readings at home. Recommend patient start seeing a director of broadcast for yearly skin checks/monitoring of moles . [...] the nasal steroid allergy spray. . Left [id number]-Dr Ely in to evaluate patient-plan for besivance [...]
--- OUTSIDE RECORDS SUMMARY | 2019-07-06 10:11 | XMS REPORT | CCD ---
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/[address]: 376594083 Nonsmoker 09/27/2011 Has the patient ever used [...] Fill Instructions amoxicillin 500 mg tablet RxNorm: 487168 1 Tablet(s) PO TID 03/02/2019 03/08/2019 Inactive Zomig 5 mg tablet RxNorm: 545431 TAKE ONE TABLET BY MOUTH ONCE DAILY NEEDED 05/30/2018 No Stop Date Active hydrochlorothiazide 25 mg tablet RxNorm: 345205 1 Tablet(s) PO daily TAKE ONE TABLET BY MOUTH ONCE DAILY 05/19/2018 08/11/2019 Active patient to call when needs refills hydrochlorothiazide 25 mg tablet RxNorm: 416535 TAKE ONE TABLET BY MOUTH ONCE DAILY 04/25/2018 05/18/2018 Inactive hydrochlorothiazide 25 mg tablet RxNorm: 845073 TAKE ONE TABLET BY MOUTH ONCE DAILY 10/24/2017 04/24/2018 Inactive phentermine 37.5 mg capsule RxNorm: 043133 1 Capsule(s) PO daily 1 po q am 1/2 tab po q afternoon 06/27/2017 07/26/2017 Inactive phentermine 37.5 mg capsule RxNorm: 609272 1 Capsule(s) PO daily 1 po q am 1/2 tab po q afternoon 04/22/2017 05/21/2017 Inactive Zomig 5 mg tablet RxNorm: 494265 TAKE ONE TABLET BY MOUTH ONCE DAILY NEEDED 04/18/2017 05/23/2017 Inactive hydrochlorothiazide 25 mg tablet RxNorm: 490516 TAKE ONE TABLET BY MOUTH ONCE DAILY 04/18/2017 10/14/2017 Inactive Zithromax Z-Cameron 250 mg tablet RxNorm: 778326 1 Tablet(s) PO UD 01/11/2017 01/15/2017 Inactive Besivance 0.6 % eye drops,suspension RxNorm: 740041 1 Drop(s) OPH TID 01/11/2017 01/17/2017 Inactive ciprofloxacin 0.3 % eye drops RxNorm: 284903 Drop(s) OPH 1-2 drops every 2 hours while awake x 2 days, then every 4 hour x 5 days 12/10/2016 No Stop Date Active meclizine 25 mg tablet RxNorm: 961065 1 Tablet(s) PO TID as needed 12/03/2016 12/12/2016 Inactive Zithromax Z-Cameron 250 mg tablet RxNorm: 724599 1 Tablet(s) PO UD 12/03/2016 01/10/2017 Inactive Lipitor 10 mg tablet RxNorm: 704975 Tablet(s) 1 Tablet(s) PO QPM TAKE ONE TABLET BY MOUTH ONCE DAILY IN THE EVENING 03/22/2016 05/18/2018 Inactive hydrochlorothiazide 25 mg tablet RxNorm: 197382 Tablet(s) PO 03/22/2016 08/18/2016 Inactive TAKE ONE TABLET BY MOUTH EVERY DAY clonidine HCl 0.1 mg tablet RxNorm: 280570 1/2 Tablet(s) PO BID as needed for hot flashes 02/19/2016 03/19/2016 Inactive Zomig 5 mg tablet RxNorm: 162773 1 Tablet(s) PO daily 02/02/2016 04/17/2017 Inactive TAKE ONE TABLET BY MOUTH NEEDED please dispense generic Keflex 500 mg capsule RxNorm: 064652 1 Capsule(s) PO TID 01/26/2016 02/04/2016 Inactive hydrochlorothiazide 25 mg tablet RxNorm: 253985 1 Tablet(s) PO daily TAKE ONE TABLET BY MOUTH EVERY DAY 01/15/2016 03/14/2016 Inactive Lipitor 10 mg tablet RxNorm: 652997 1 Tablet(s) PO QPM TAKE ONE TABLET BY MOUTH ONCE DAILY IN THE EVENING 01/15/2016 03/14/2016 Inactive Kenalog 40 mg/mL suspension for injection RxNorm: 4287348 Milliliter(s) Inj 12/30/2015 12/30/2015 Inactive amoxicillin 500 mg capsule RxNorm: 066597 1 Capsule(s) PO TID 12/30/2015 01/05/2016 Inactive ceftriaxone 500 mg solution for injection RxNorm: 7998954 Inj 12/30/2015 12/30/2015 Inactive hydrochlorothiazide 25 mg tablet RxNorm: 820290 1 Tablet(s) PO daily TAKE ONE TABLET BY MOUTH EVERY DAY 11/14/2015 01/12/2016 Inactive Patient needs to make an appt Lipitor 10 mg tablet RxNorm: 723671 1 Tablet(s) PO QPM TAKE ONE TABLET BY MOUTH ONCE DAILY IN THE EVENING 11/14/2015 01/12/2016 Inactive Patient needs to make an appt clonidine HCl 0.1 mg tablet RxNorm: 152730 1/2 Tablet(s) PO BID as needed for hot flashes 02/14/2015 02/13/2015 Inactive clonidine HCl 0.1 mg tablet RxNorm: 163122 1/2 Tablet(s) PO BID as needed for hot flashes 02/14/2015 03/15/2015 Inactive Zomig 5 mg tablet RxNorm: 388655 1 Tablet(s) PO daily 02/13/2015 02/01/2016 Inactive TAKE ONE TABLET BY MOUTH NEEDED please dispense generic Bactrim DS 800 mg-160 mg tablet RxNorm: 369334 1 Tablet(s) PO BID 01/21/2015 01/20/2015 Inactive Bactrim DS 800 mg-160 mg tablet RxNorm: 693394 1 Tablet(s) PO BID 01/21/2015 01/27/2015 Inactive Cipro 500 mg tablet RxNorm: 030122 1 Tablet(s) PO BID 01/09/2015 01/15/2015 Inactive Pyridium 200 mg tablet RxNorm: 3367679 1 Tablet(s) PO TID PRN 01/09/2015 01/15/2015 Inactive phentermine 37.5 mg capsule RxNorm: 210272 1 Capsule(s) PO daily 1 po q am 1/2 tab po q afternoon 11/29/2014 12/28/2014 Inactive Lipitor 10 mg tablet RxNorm: 282441 TAKE ONE TABLET BY MOUTH ONCE DAILY IN THE EVENING 10/20/2014 10/14/2015 Inactive hydrochlorothiazide 25 mg tablet RxNorm: 825944 TAKE ONE TABLET BY MOUTH EVERY DAY 10/20/2014 10/14/2015 Inactive phentermine 37.5 mg capsule RxNorm: 083666 1 Capsule(s) PO daily 1 po q am 1/2 tab po q afternoon 08/22/2014 09/20/2014 Inactive Lipitor 10 mg tablet RxNorm: 876334 TAKE ONE TABLET BY MOUTH ONCE DAILY IN THE EVENING 07/18/2014 10/15/2014 Inactive hydrochlorothiazide 25 mg tablet RxNorm: 514474 TAKE ONE TABLET BY MOUTH EVERY DAY 07/18/2014 10/15/2014 Inactive Zomig 5 mg tablet RxNorm: 652817 1 Tablet(s) PO daily 07/17/2014 02/12/2015 Inactive TAKE ONE TABLET BY MOUTH NEEDED please dispense generic Lipitor 10 mg tablet RxNorm: 821584 1 Tablet(s) PO QPM 02/21/2014 06/20/2014 Inactive Lipitor 10 mg tablet RxNorm: 901615 1 Tablet(s) PO QPM 02/20/2014 02/20/2014 Inactive Zomig 5 mg tablet RxNorm: 253688 1 Tablet(s) PO daily 10/30/2013 07/16/2014 Inactive TAKE ONE TABLET BY MOUTH NEEDED please dispense generic phentermine 37.5 mg capsule RxNorm: 423799 1 Capsule(s) PO daily 1 po q am 1/ tab po q afternoon 09/13/2013 10/12/2013 Inactive Zomig 5 mg tablet RxNorm: 303920 1 Tablet(s) PO daily 06/28/2013 10/29/2013 Inactive TAKE ONE TABLET BY MOUTH NEEDED please dispense generic phentermine 37.5 mg capsule RxNorm: 094198 1 Capsule(s) PO daily 06/28/2013 07/27/2013 Inactive hydrochlorothiazide 25 mg tablet RxNorm: 205892 1 Tablet(s) PO TAKE ONE TABLET BY MOUTH EVERY DAY 06/25/2013 06/25/2013 Inactive hydrochlorothiazide 25 mg tablet RxNorm: 814590 1 Tablet(s) PO daily TAKE ONE TABLET BY MOUTH EVERY DAY 06/25/2013 11/13/2015 Inactive phentermine 37.5 mg capsule RxNorm: 189643 1 Capsule(s) PO daily 02/23/2013 03/24/2013 Inactive Zomig 5 mg tablet RxNorm: 272433 1 Tablet(s) PO daily 02/07/2013 06/27/2013 Inactive TAKE ONE TABLET BY MOUTH NEEDED Zomig 5 mg tablet RxNorm: 934038 Tablet(s) PO TAKE ONE TABLET BY MOUTH NEEDED 02/07/2013 05/29/2018 Inactive Rocephin 500 mg Solution for Injection RxNorm: 0318242 1.5 Milliliter(s) Inj 01/05/2013 01/05/2013 Inactive amoxicillin 500 mg capsule RxNorm: 022740 1 Capsule(s) PO TID 01/05/2013 01/11/2013 Inactive phentermine 37.5 mg capsule RxNorm: 671882 1 Capsule(s) PO daily 01/05/2013 02/03/2013 Inactive hydrochlorothiazide 25 mg tablet RxNorm: 819348 Tablet(s) PO TAKE ONE TABLET BY MOUTH EVERY DAY 12/07/2012 06/24/2013 Inactive phentermine 37.5 mg capsule RxNorm: 754755 1 Capsule(s) PO daily 11/01/2012 11/30/2012 Inactive Topamax 25 mg tablet RxNorm: 561134 1 Tablet(s) PO BID start with 25mg po in the evening and increase to twice daily after 2 weeks 08/17/2012 09/15/2012 Inactive hydrochlorothiazide 25 mg Tab RxNorm: 388157 Tablet(s) PO 05/01/2012 03/21/2016 Inactive TAKE ONE TABLET BY MOUTH EVERY DAY hydrochlorothiazide 25 mg tablet RxNorm: 210026 1 Tablet(s) PO daily 04/28/2012 04/30/2012 Inactive Zomig 5 mg tablet RxNorm: 871194 1 Tablet(s) PO 01/25/2012 02/06/2013 Inactive TAKE ONE TABLET BY MOUTH NEEDED Zomig 5 mg Tab RxNorm: 162295 1 Tablet(s) PO PRN 11/24/2011 11/23/2011 Inactive Zomig 5 mg Tab RxNorm: 813416 Tablet(s) PO 11/24/2011 01/24/2012 Inactive TAKE ONE TABLET BY MOUTH NEEDED phentermine 37.5 mg capsule RxNorm: 276211 1 Capsule(s) PO daily 10/20/2011 11/18/2011 Inactive Zomig 5 mg Tab RxNorm: 936236 1 Tablet(s) PO PRN No Start Date 11/23/2011 Inactive Zithromax Z-Cameron 250 mg Tab RxNorm: 449466 Tablet(s) PO No Start Date 11/17/2011 Inactive ciprofloxacin 0.3 % eye drops RxNorm: 537815 Drop(s) OPH 1-2 drops every 2 hours while awake x 2 days, then every 4 hour x 5 days No Start Date 12/09/2016 Inactive hydrochlorothiazide 25 mg Tab RxNorm: 291800 1 Tablet(s) PO daily No Start Date 04/27/2012 Inactive Medication Administered Medication Codes Instructions Start Date Status ceftriaxone 500 mg solution for injection RxNorm: 0381658 12/30/2015 No longer Active Kenalog 40 mg/mL suspension for injection RxNorm: 6168525 Milliliter 12/30/2015 No longer Active Rocephin 500 mg Solution for Injection RxNorm: 1692759 1.5Milliliter 01/05/2013 No longer Active Immunizations Vaccine [...] OVERWEIGHT ICD-9: 278.02 11/29/2014 ESSENTIAL HYPERTENSION SNOMED: 08200480 ICD-9: 401.9 02/18/2014 Pelvic pain in female [...] Item Item Code Result Date Comp Metabolic Epi397 NA 140 mEq/L 05/24/2018 Comp Metabolic Bmz233 K 3.7 mEq/L 05/24/2018 Comp Metabolic Gfa578 CL 102 mEq/L 05/24/2018 Comp Metabolic Bcr599 CO2 30.0 mEq/L 05/24/2018 Comp Metabolic Cur202 ANION GAP 12 05/24/2018 Comp Metabolic Czp479 GLUCOSE 101 mg/dL 05/24/2018 Comp Metabolic Ytg599 Creat 0.8 mg/dL 05/24/2018 Comp Metabolic Rac972 eGFR 86 ml/min/1.73m2 05/24/2018 Comp Metabolic Ern224 BUN 10 mg/dL 05/24/2018 Comp Metabolic Nna514 B/C Ratio 13.3 Ratio 05/24/2018 Comp Metabolic Wti966 CALCIUM 10.1 mg/dL 05/24/2018 Comp Metabolic Quk911 ALK PHOS 64 U/L 05/24/2018 Comp Metabolic Gtv818 AST(SGOT) 14 U/L 05/24/2018 Comp Metabolic Zsu893 ALT(SGPT) 13 U/L 05/24/2018 Comp Metabolic Oqb332 BILI T 0.5 mg/dL 05/24/2018 Comp Metabolic Xsw743 ALBUMIN 4.5 g/dL 05/24/2018 Comp Metabolic Xqi814 TPRO 6.8 g/dL 05/24/2018 Comp Metabolic Een331 GLOB 2.3 g/dL 05/24/2018 Comp Metabolic Dks880 A/G Ratio 2.0 Ratio 05/24/2018 Comp Metabolic Yxm633 Osmo 279 mOsmo 05/24/2018 Cbc With Differential [...] 33.2 pg 05/24/2018 Cbc With Differential Ord2 Steele% 6.5 % 05/24/2018 Cbc With Differential Ord2 [...] 2.32 K/ul 05/24/2018 Cbc With Differential Ord2 Steele ABS# 0.4 K/ul 05/24/2018 Cbc With Differential [...] hTSH II 1.28 uIU/mL 01/12/2017 Comp Metabolic Wzv599 NA 136 mEq/L 04/29/2016 Comp Metabolic Uzs456 K 3.8 mEq/L 04/29/2016 Comp Metabolic Pqp066 CL 101 mEq/L 04/29/2016 Comp Metabolic Nfy004 CO2 32.0 mEq/L 04/29/2016 Comp Metabolic Ndf901 ANION GAP 7 04/29/2016 Comp Metabolic Tjy997 GLUCOSE 100 mg/dL 04/29/2016 Comp Metabolic Sbq576 Creat 0.7 mg/dL 04/29/2016 Comp Metabolic Qla132 eGFR 99 ml/min/1.73m2 04/29/2016 Comp Metabolic Njh035 BUN 11 mg/dL 04/29/2016 Comp Metabolic Wwt977 B/C Ratio 16.4 Ratio 04/29/2016 Comp Metabolic Hgc182 CALCIUM 9.7 mg/dL 04/29/2016 Comp Metabolic Hio505 ALK PHOS 49 U/L 04/29/2016 Comp Metabolic Rur660 AST(SGOT) 11 U/L 04/29/2016 Comp Metabolic Rvb947 ALT(SGPT) 10 U/L 04/29/2016 Comp Metabolic Pix772 BILI T 0.6 mg/dL 04/29/2016 Comp Metabolic Qts196 ALBUMIN 4.3 g/dL 04/29/2016 Comp Metabolic Hwo731 TPRO 6.9 g/dL 04/29/2016 Comp Metabolic Evc355 GLOB 2.6 g/dL 04/29/2016 Comp Metabolic Veq791 A/G Ratio 1.7 Ratio 04/29/2016 Comp Metabolic Jpe127 Osmo 271 mOsmo 04/29/2016 Lipid Ord30 CHOL [...] 32.7 pg 04/29/2016 Cbc With Differential Ord2 Steele% 7.2 % 04/29/2016 Cbc With Differential Ord2 [...] 2.78 K/ul 04/29/2016 Cbc With Differential Ord2 Steele ABS# 0.6 K/ul 04/29/2016 Cbc With Differential [...] 32.7 pg 01/26/2016 Cbc With Differential Ord2 Steele% 7.5 % 01/26/2016 Cbc With Differential Ord2 [...] 3.08 K/ul 01/26/2016 Cbc With Differential Ord2 Steele ABS# 0.9 K/ul 01/26/2016 Cbc With Differential [...] hTSH II 2.28 uIU/mL 01/26/2016 Comp Metabolic Jya767 NA 140 mEq/L 01/26/2016 Comp Metabolic Zjv601 K 3.9 mEq/L 01/26/2016 Comp Metabolic Rtw768 CL 104 mEq/L 01/26/2016 Comp Metabolic Dsw071 CO2 25.0 mEq/L 01/26/2016 Comp Metabolic Lzg823 ANION GAP 15 01/26/2016 Comp Metabolic Jkp584 GLUCOSE 112 mg/dL 01/26/2016 Comp Metabolic Qjh779 Creat 0.7 mg/dL 01/26/2016 Comp Metabolic Bzq294 eGFR 96 ml/min/1.73m2 01/26/2016 Comp Metabolic Xni798 BUN 8 mg/dL 01/26/2016 Comp Metabolic Gkv247 B/C Ratio 11.6 Ratio 01/26/2016 Comp Metabolic Qvl742 CALCIUM 10.4 mg/dL 01/26/2016 Comp Metabolic Asa892 ALK PHOS 59 U/L 01/26/2016 Comp Metabolic Fkj010 AST(SGOT) 17 U/L 01/26/2016 Comp Metabolic Fda795 ALT(SGPT) 16 U/L 01/26/2016 Comp Metabolic Czt445 BILI T 0.4 mg/dL 01/26/2016 Comp Metabolic Pnc695 ALBUMIN 4.6 g/dL 01/26/2016 Comp Metabolic Ivn388 TPRO 7.4 g/dL 01/26/2016 Comp Metabolic Izc415 GLOB 2.8 g/dL 01/26/2016 Comp Metabolic Ekj109 A/G Ratio 1.6 Ratio 01/26/2016 Comp Metabolic Cte413 Osmo 278 mOsmo 01/26/2016 Review of Systems [...] Procedures Procedure Codes Date PAP 2 CPT-4: 3262568 06/12/2019 TRIAMCINOLONE ACET INJ NOS CPT-4: J3301 12/30/2015 ROCEPHIN, PER 250 MG CPT- 4: J0696 12/30/2015 URINALYSIS NONAUTO W/O SCOPE CPT-4: 41347 01/09/2015 C URINE RT (URINE CULTURE/COLONY COUNT) CPT-4: 81749 01/09/2015 ROCEPHIN, PER 250 MG CPT- 4: J0696 01/05/2013 PREV VISIT EST AGE 40-64 CPT-4: 08899 11/18/2011 Vital Signs Date Vital 06/12/2019 Blood Pressure 1: 120/76 Code: 8480-6 BMI: 23.8 Code: 75580-2 Heart Rate 1: 69 bpm Height: 5'2" SpO2: 99% Weight: 128 lbs 03/02/2019 Blood Pressure 1: 140/76 Code: 8480-6 BMI: 24.5 Code: 91106-8 Heart Rate 1: 94 bpm Height: 5'2" SpO2: 99% Weight: 132 lbs 05/19/2018 Blood Pressure 1: 118/80 Code: 8480-6 BMI: 24.4 Code: 03555-3 Heart Rate 1: 67 bpm Height: 5'2" SpO2: 98% Weight: 131 lbs 06/27/2017 Blood Pressure 1: 138/84 Code: 8480-6 BMI: 25.2 Code: 49533-3 Heart Rate 1: 92 bpm Height: 5'2" SpO2: 98% Weight: 135 lbs 8 oz 04/22/2017 Blood Pressure 1: 122/78 Code: 8480-6 BMI: 27.0 Code: 31079-0 Heart Rate 1: 82 bpm Height: 5'2" SpO2: 98% Weight: 145 lbs 01/11/2017 Blood Pressure 1: 124/76 Code: 8480-6 Heart Rate 1: 79 bpm Height: 5'1" SpO2: 95% 12/03/2016 Blood Pressure 1: 140/86 Code: 8480-6 BMI: 28.3 Code: 72087-4 Heart Rate 1: 80 bpm Height: 5'2" SpO2: 98% Weight: 152 lbs 01/26/2016 Blood Pressure 1: 120/82 Code: 8480-6 BMI: 27.5 Code: 76599-2 Heart Rate 1: 78 bpm Height: 5'2" Weight: 148 lbs 12/30/2015 Blood Pressure 1: 122/78 Code: 8480-6 Heart Rate 1: 88 bpm SpO2: 96% 01/09/2015 Blood Pressure 1: 138/88 Code: 8480-6 BMI: 28.8 Code: 96974-5 Heart Rate 1: 80 bpm Height: 5'2" Weight: 155 lbs 11/29/2014 Blood Pressure 1: 128/80 Code: 8480-6 BMI: 29.2 Code: 04681-9 Heart Rate 1: 80 bpm Height: 5'2" Weight: 157 lbs 08/22/2014 Blood Pressure 1: 130/88 Code: 8480-6 Weight: 160 lbs 06/25/2014 Blood Pressure 1: 124/76 Code: 8480-6 BMI: 29.9 Code: 70437-0 Heart Rate 1: 72 bpm Height: 5'2" Weight: 161 lbs 02/18/2014 Blood Pressure 1: 128/84 Code: 8480-6 BMI: 30.9 Code: 41002-0 Heart Rate 1: 76 bpm Height: 5'2" Weight: 166 lbs 09/13/2013 Blood Pressure 1: 126/82 Code: 8480-6 BMI: 30.1 Code: 85514-7 Heart Rate 1: 80 bpm Height: 5'2" Weight: 162 lbs 06/28/2013 Blood Pressure 1: 122/84 Code: 8480-6 BMI: 30.1 Code: 22268-1 Heart Rate 1: 84 bpm Height: 5'2" Weight: 162 lbs 02/23/2013 Blood Pressure 1: 124/86 Code: 8480-6 BMI: 30.1 Code: 41663-9 Heart Rate 1: 80 bpm Height: 5'2" Weight: 162 lbs 01/05/2013 Blood Pressure 1: 128/78 Code: 8480-6 BMI: 29.0 Code: 46042-8 Heart Rate 1: 80 bpm Height: 5'2" Temperature: 36.6 (C) / 97.8 (F) Weight: 156 lbs 11/01/2012 Blood Pressure 1: 134/88 Code: 8480-6 BMI: 30.5 Code: 55021-8 Heart Rate 1: 80 bpm Height: 5'2" Weight: 164 lbs 08/17/2012 Blood Pressure 1: 114/70 Code: 8480-6 BMI: 28.8 Code: 63232-3 Heart Rate 1: 68 bpm Height: 5'2" Weight: 155 lbs 02/14/2012 Blood Pressure 1: 126/82 Code: 8480-6 BMI: 29.5 Code: 22526-7 Heart Rate 1: 68 bpm Height: 5'1" Respiratory Rate: 16 bpm Weight: 156 lbs 11/18/2011 Blood Pressure 1: 104/72 Code: 8480-6 BMI: 28.6 Code: 29453-4 Heart Rate 1: 20 bpm Height: 5'2" Respiratory Rate: 16 bpm Weight: 154 lbs 10/20/2011 Blood Pressure 1: 137/81 Code: 8480-6 BMI: 28.8 Code: 32443-6 Heart Rate 1: 78 bpm Height: 5'2" [...] -states she will occasionally check it at [facility] and states it is less than [...] without abnormal findings[ICD10: Z01.419] Ira [facility]ly MD, [facility] CPT-4: 07623 06/12/2019 ([id number]) 20170 EST. PATIENT, LEVEL III Diagnosis: Acute upper respiratory infection, unspecified[ICD10: J06.9] Diagnosis: Other allergic rhinitis[ICD10: J30.89] Ira Ely MD, [facility] CPT-4: 03599 03/02/2019 ([id number]) 67218 EST. PATIENT, LEVEL III Diagnosis: Essential (primary) hypertension[ICD10: I10] Diagnosis: Mixed hyperlipidemia[ICD10: E78.2] Ira Ely MD, [facility] CPT- 4: 71705 05/19/2018 ([id number]) Miscellaneous no charge Diagnosis: Overweight[ICD10: E66.3] [facility] CPT-4: 63667 06/27/2017 ([id number]) Miscellaneous no charge Diagnosis: Overweight[ICD10: E66.3] Ira [facility] MD, [facility] CPT-4: 62485 04/22/2017 ([id number]) 85206 EST. PATIENT, LEVEL III Diagnosis: Edema of left eye, unspecified eyelid[ICD10: H02.846] Diagnosis: Localized swelling, mass and lump, head[ICD10: R22.0] Ira Ely MD, [facility] CPT-4: 71763 01/11/2017 [id number] EST. PATIENT, LEVEL IV Diagnosis: Dizziness and giddiness[ICD10: R42] Diagnosis: Other allergic rhinitis[ICD10: J30.89] Radha Ely MD, [facility] CPT- 4: 58923 12/03/2016 [id number] EST. PATIENT, LEVEL IV Diagnosis: Acute laryngopharyngitis[ICD10: J06.0] Diagnosis: Acute recurrent maxillary sinusitis[ICD10: J01.01] Diagnosis: Cough[ICD10: R05] Radha Ely MD, [facility] CPT-4: 65994 01/26/2016 [id number] EST. PATIENT, LEVEL IV Diagnosis: Streptococcal pharyngitis[ICD10: J02.0] Diagnosis: Acute recurrent maxillary sinusitis[ICD10: J01.01] Radha Ely MD, [facility] CPT-4: 30864 12/30/2015 ([id number]) 08583 EST. PATIENT, LEVEL III Diagnosis: Urinary tract infection[ICD9: 599.0] Ira Ely MD, [facility] CPT-4: 25765 01/09/2015 ([id number]) Miscellaneous no charge Diagnosis: OVERWEIGHT[ICD9: 278.02] Tea [facility] MD, [facility] CPT-4: 37513 11/29/2014 ([id number]) Miscellaneous no charge Diagnosis: OVERWEIGHT[ICD9: 278.02] Ira Ely MD, [facility] CPT-4: 88001 06/25/2014 ([id number]) 64198 EST. PATIENT, LEVEL IV Diagnosis: ESSENTIAL HYPERTENSION[SNOMED: 93096648] Diagnosis: MIGRAINE NOS/NOT INTRCBL[ICD9: 346.90] Diagnosis: Pelvic pain in female[ICD9: 625.9] Ira Ely MD, [facility] CPT- 4: 82398 02/18/2014 ([id number]) Miscellaneous no charge Diagnosis: OBESITY[ICD9: 278.00] Ira Ely MD, [facility] CPT-4: 90852 09/13/2013 ([id number]) 68414 EST. PATIENT, LEVEL III Diagnosis: ESSENTIAL HYPERTENSION[SNOMED: 62964333] Diagnosis: MIGRAINE NOS/NOT INTRCBL[ICD9: 346.90] Tea [facility] MD, [facility] CPT-4: 73706 06/28/2013 ([id number]) Miscellaneous no charge Diagnosis: OVERWEIGHT[ICD9: 278.02] [facility] CPT-4: 11255 02/23/2013 ([id number]) 59343 EST. PATIENT, LEVEL III Diagnosis: ACUTE URI[ICD9: 465.9] Diagnosis: COUGH[ICD9: 786.2] Diagnosis: OVERWEIGHT[ICD9: 278.02] Ira Ely MD, [facility] CPT-4: 56141 01/05/2013 ([id number]) 28519 EST. PATIENT, LEVEL III Diagnosis: ESSENTIAL HYPERTENSION[SNOMED: 83739040] Diagnosis: Obesity[ICD9: 278.00] Tea [facility] MD, [facility] CPT-4: 59490 11/01/2012 ([id number]) 91682 EST. PATIENT, LEVEL IV Diagnosis: ESSENTIAL HYPERTENSION[SNOMED: 92836102] Diagnosis: Migraine headache[ICD9: 346.90] Ira Ely MD, [facility] CPT-4: 89975 08/17/2012 ([id number]) 05457 EST. PATIENT, LEVEL II Diagnosis: Overweight (BMI 25.0-29.9)[ICD9: 278.02] Tea Ely MD, [facility] CPT-4: 55567 02/14/2012 63032 EST. PATIENT, LEVEL IV Diagnosis: Overweight[ICD9: 278.02] Diagnosis: ESSENTIAL HYPERTENSION[SNOMED: 12500712] Diagnosis: Pharyngitis[ICD9: 462] [facility] CPT-4: 47751 10/20/2011 Plan of Care Planned Activity Notes [...] 06/12/2019 Care Plan: Referral Order SNOMED-CT : [id number] Pending 06/12/2019 Visit Plan: URI - Pt [...] allergy spray. 03/02/2019 Appointment: Ira Morales WPtel: [phone] (15 min) Moderate 03/02/2019 Patient Education: Patient Medication Summary Completed 03/02/2019 Appointment: Radha Penaloza WPtel: [facility] (15 min) Moderate 09/22/2018 Appointment: Radha Penaloza WPtel: [facility] (15 min) Moderate 09/21/2018 Appointment: Ira Morales WPtel: [phone] [place] (15 min) Moderate 06/23/2018 Appointment: Ira Morales WPtel: [address] [place], [place] [phone] [place] (15 min) Moderate 06/22/2018 Visit Plan: Hypertension - well controlled - continue with current medications, continue with no added salt diet. Pt has been encouraged to exercise daily. The pt has been advised to call the office if there are any acute concerns about change in blood pressure readings at home. Recommend patient start seeing a terrazzo mechanic helper for yearly skin checks/monitoring of moles 05/19/2018 Visit Plan: Hypertension - well controlled - continue with current medications, continue with no added salt diet. Pt has been encouraged to exercise daily. The pt has been advised to call the office if there are any acute concerns about change in blood pressure readings at home. Recommend patient start seeing a terrazzo mechanic helper for yearly skin checks/monitoring of moles 05/19/2018 Appointment: Ira Morales WPtel: [facility] [place] [address] (15 min) Moderate 05/19/2018 Patient Education: Patient Medication Summary Completed 05/19/2018 Visit Plan: Overweight - chronic issue with this patient. The pt has been counseled about diet changes, calorie restriction, and need to exercise. Pt will RTC in one month for weight check. 06/27/2017 Appointment: Ira Morales WPtel: [facility] [place] [address] (15 min) Moderate 06/27/2017 Patient Education: Patient Medication Summary Completed 06/27/2017 Patient Education: Obesity Completed 06/27/2017 Visit Plan: Overweight - chronic issue with this patient. The pt has been counseled about diet changes, calorie restriction, and need to exercise. Pt will RTC in one month for weight check. 04/22/2017 Appointment: Ira Morales WPtel: [facility] [place] [phone] (30 min) Complex 04/22/2017 Patient Education: Patient Medication Summary Completed 04/22/2017 Patient Education: Obesity Completed 04/22/2017 Visit Plan: Left jal-ovjhhfubtqdtml-pvllryna-Dr Ely in to evaluate patient-plan for besivance eye drops and zpack to cover H.flu-CT scan sinus for further evaluation-will also check TSH today in the office- patient verbalized understanding of plan. 01/11/2017 Appointment: Ira Morales WPtel: [phone] (30 min) Complex 01/11/2017 Patient Education: Patient [...] further instructions/medication interventions. 12/03/2016 Appointment: [facility]aloza[facility] (30 min) Complex 12/03/2016 Patient Education: Patient Medication Summary Completed 12/03/2016 Appointment: Rad[facility] Penaloza[facility] (15 min) Moderate 04/01/2016 Visit Plan: Sinusitis [...] Hypertension Completed 02/18/2014 Appointment: Ira Morales WPtel[phone] Other 02/15/2014 Appointment: Ira Morales WPtel: [facility] [place] [address] Nurse Visit 09/13/2013 Patient Education: Patient Medication [...] weight check. 06/28/2013 Appointment: Ira Morales WPtel: [phone] Follow up 06/28/2013 Patient Education: Patient Medication Summary Completed 06/28/2013 Patient Education: Hypertension Completed 06/28/2013 Visit Plan: Weight and blood pressure check 02/23/2013 Appointment: Ira Morales WPtel: [address] [place], [place] [phone] [place] [address] Follow up 02/23/2013 Patient Education: Patient Medication Summary Completed 02/23/2013 Visit Plan: URI -cough- Pt advised to increase fluids, vitamin C. Discussed natural and expected course of this diagnosis and need to alert me if symtpoms do not follow expected course, or if any worse. RX sent to patient's pharmacy. Rocephin injection today in the office. Overweight-refill phentermine 01/05/2013 Appointment: Ira Morales WPtel: [phone] Sick 01/05/2013 Patient Education: Patient Medication Summary [...] pressure elevated. 11/01/2012 Appointment: Ira Morales WPtel: [id number] [place] [address] Physical 11/01/2012 Patient Education: Patient Medication Summary [...] 2 weeks. 08/17/2012 Appointment: Ira Morales WPtel: [address] [place], [place] [phone] [place] [address] Other 08/17/2012 Patient Education: Patient Medication Summary Completed 08/17/2012 Patient Education: High Blood Pressure: Essential Hypertension Completed 08/17/2012 Appointment: Tea Ely WPtel: [address] [place], [place] [phone] Surgical Procedure 07/11/2012 Appointment: Tea Ely WPtel: [address] [place] [address] Surgical Procedure 02/22/2012 Visit Plan: Overweight - [...] weight check. 02/14/2012 Appointment: Tea Ely WPtel: [address] [place], [place] [id number] Other 02/14/2012 Patient Education: Patient Medication [...] punch biopsy. 11/18/2011 Appointment: Tea Ely WPtel: [address] [place], [place] [phone] Pap Only 11/18/2011 Patient Education: Patient Medication [...] at home. 10/20/2011 Appointment: Ira Morales WPtel: [address] [place], [place] [phone] Other 10/20/2011 Patient Education: Patient Medication Summary Completed 10/20/2011 Patient Education: High Blood Pressure: Essential Hypertension Completed 10/20/2011 Appointment: Ira Morales WPtel: [address] [place], [place] [phone] Other 09/28/2011 Referral: Palmer Buitrago Referral Appointment [...] at home. Recommend patient start seeing a terrazzo mechanic helper for yearly skin checks/monitoring of moles . Hypertension - well controlled - continue with current medications, continue with no added salt diet. Pt has been encouraged to exercise daily. The pt has been advised to call the office if there are any acute concerns about change in blood pressure readings at home. Recommend patient start seeing a terrazzo mechanic helper for yearly skin checks/monitoring of moles . [...] the nasal steroid allergy spray. . Left nds-[id number]-[id number]-Dr Ely in to evaluate patient-plan for besivance [...]
--- OUTSIDE RECORDS SUMMARY | 2019-07-06 10:14 | XMS REPORT | CCD ---
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/[address]: 600975947 Nonsmoker 09/27/2011 Has the patient ever used [...] Codes Condition Status Onset Date Resolved Date Acute upper respiratory infection, unspecified ICD-9: 465.9 [...] Problems Condition Codes Effective Dates Condition Status Acute upper respiratory infection, unspecified ICD-9: 465.9 [...] Fill Instructions amoxicillin 500 mg tablet RxNorm: 845073 1 Tablet(s) PO TID 03/02/2019 03/08/2019 Active Zomig 5 mg tablet RxNorm: 889479 TAKE ONE TABLET BY MOUTH ONCE DAILY NEEDED 05/30/2018 No Stop Date Active hydrochlorothiazide 25 mg tablet RxNorm: 540289 1 Tablet(s) PO daily TAKE ONE TABLET BY MOUTH ONCE DAILY 05/19/2018 08/11/2019 Active patient to call when needs refills hydrochlorothiazide 25 mg tablet RxNorm: 568725 TAKE ONE TABLET BY MOUTH ONCE DAILY 04/25/2018 05/18/2018 Inactive hydrochlorothiazide 25 mg tablet RxNorm: 237947 TAKE ONE TABLET BY MOUTH ONCE DAILY 10/24/2017 04/24/2018 Inactive phentermine 37.5 mg capsule RxNorm: 629568 1 Capsule(s) PO daily 1 po q am 1/2 tab po q afternoon 06/27/2017 07/26/2017 Inactive phentermine 37.5 mg capsule RxNorm: 058045 1 Capsule(s) PO daily 1 po q am 1/2 tab po q afternoon 04/22/2017 05/21/2017 Inactive Zomig 5 mg tablet RxNorm: 587787 TAKE ONE TABLET BY MOUTH ONCE DAILY NEEDED 04/18/2017 05/23/2017 Inactive hydrochlorothiazide 25 mg tablet RxNorm: 631110 TAKE ONE TABLET BY MOUTH ONCE DAILY 04/18/2017 10/14/2017 Inactive Zithromax Z-Cameron 250 mg tablet RxNorm: 456773 1 Tablet(s) PO UD 01/11/2017 01/15/2017 Inactive Besivance 0.6 % eye drops,suspension RxNorm: 209414 1 Drop(s) OPH TID 01/11/2017 01/17/2017 Inactive ciprofloxacin 0.3 % eye drops RxNorm: 611091 Drop(s) OPH 1-2 drops every 2 hours while awake x 2 days, then every 4 hour x 5 days 12/10/2016 No Stop Date Active meclizine 25 mg tablet RxNorm: 151561 1 Tablet(s) PO TID as needed 12/03/2016 12/12/2016 Inactive Zithromax Z-Cameron 250 mg tablet RxNorm: 966494 1 Tablet(s) PO UD 12/03/2016 01/10/2017 Inactive Lipitor 10 mg tablet RxNorm: 376915 Tablet(s) 1 Tablet(s) PO QPM TAKE ONE TABLET BY MOUTH ONCE DAILY IN THE EVENING 03/22/2016 05/18/2018 Inactive hydrochlorothiazide 25 mg tablet RxNorm: 932701 Tablet(s) PO 03/22/2016 08/18/2016 Inactive TAKE ONE TABLET BY MOUTH EVERY DAY clonidine HCl 0.1 mg tablet RxNorm: 709627 1/2 Tablet(s) PO BID as needed for hot flashes 02/19/2016 03/19/2016 Inactive Zomig 5 mg tablet RxNorm: 195710 1 Tablet(s) PO daily 02/02/2016 04/17/2017 Inactive TAKE ONE TABLET BY MOUTH NEEDED please dispense generic Keflex 500 mg capsule RxNorm: 264075 1 Capsule(s) PO TID 01/26/2016 02/04/2016 Inactive hydrochlorothiazide 25 mg tablet RxNorm: 797562 1 Tablet(s) PO daily TAKE ONE TABLET BY MOUTH EVERY DAY 01/15/2016 03/14/2016 Inactive Lipitor 10 mg tablet RxNorm: 518407 1 Tablet(s) PO QPM TAKE ONE TABLET BY MOUTH ONCE DAILY IN THE EVENING 01/15/2016 03/14/2016 Inactive Kenalog 40 mg/mL suspension for injection RxNorm: 7680014 Milliliter(s) Inj 12/30/2015 12/30/2015 Inactive amoxicillin 500 mg capsule RxNorm: 883226 1 Capsule(s) PO TID 12/30/2015 01/05/2016 Inactive ceftriaxone 500 mg solution for injection RxNorm: 1153201 Inj 12/30/2015 12/30/2015 Inactive hydrochlorothiazide 25 mg tablet RxNorm: 218399 1 Tablet(s) PO daily TAKE ONE TABLET BY MOUTH EVERY DAY 11/14/2015 01/12/2016 Inactive Patient needs to make an appt Lipitor 10 mg tablet RxNorm: 000552 1 Tablet(s) PO QPM TAKE ONE TABLET BY MOUTH ONCE DAILY IN THE EVENING 11/14/2015 01/12/2016 Inactive Patient needs to make an appt clonidine HCl 0.1 mg tablet RxNorm: 124711 1/2 Tablet(s) PO BID as needed for hot flashes 02/14/2015 02/13/2015 Inactive clonidine HCl 0.1 mg tablet RxNorm: 812459 1/2 Tablet(s) PO BID as needed for hot flashes 02/14/2015 03/15/2015 Inactive Zomig 5 mg tablet RxNorm: 414445 1 Tablet(s) PO daily 02/13/2015 02/01/2016 Inactive TAKE ONE TABLET BY MOUTH NEEDED please dispense generic Bactrim DS 800 mg-160 mg tablet RxNorm: 047445 1 Tablet(s) PO BID 01/21/2015 01/20/2015 Inactive Bactrim DS 800 mg-160 mg tablet RxNorm: 703553 1 Tablet(s) PO BID 01/21/2015 01/27/2015 Inactive Cipro 500 mg tablet RxNorm: 231950 1 Tablet(s) PO BID 01/09/2015 01/15/2015 Inactive Pyridium 200 mg tablet RxNorm: 4050005 1 Tablet(s) PO TID PRN 01/09/2015 01/15/2015 Inactive phentermine 37.5 mg capsule RxNorm: 739840 1 Capsule(s) PO daily 1 po q am 1/2 tab po q afternoon 11/29/2014 12/28/2014 Inactive Lipitor 10 mg tablet RxNorm: 652261 TAKE ONE TABLET BY MOUTH ONCE DAILY IN THE EVENING 10/20/2014 10/14/2015 Inactive hydrochlorothiazide 25 mg tablet RxNorm: 886265 TAKE ONE TABLET BY MOUTH EVERY DAY 10/20/2014 10/14/2015 Inactive phentermine 37.5 mg capsule RxNorm: 362070 1 Capsule(s) PO daily 1 po q am 1/2 tab po q afternoon 08/22/2014 09/20/2014 Inactive Lipitor 10 mg tablet RxNorm: 897960 TAKE ONE TABLET BY MOUTH ONCE DAILY IN THE EVENING 07/18/2014 10/15/2014 Inactive hydrochlorothiazide 25 mg tablet RxNorm: 440721 TAKE ONE TABLET BY MOUTH EVERY DAY 07/18/2014 10/15/2014 Inactive Zomig 5 mg tablet RxNorm: 815544 1 Tablet(s) PO daily 07/17/2014 02/12/2015 Inactive TAKE ONE TABLET BY MOUTH NEEDED please dispense generic Lipitor 10 mg tablet RxNorm: 146480 1 Tablet(s) PO QPM 02/21/2014 06/20/2014 Inactive Lipitor 10 mg tablet RxNorm: 669913 1 Tablet(s) PO QPM 02/20/2014 02/20/2014 Inactive Zomig 5 mg tablet RxNorm: 443940 1 Tablet(s) PO daily 10/30/2013 07/16/2014 Inactive TAKE ONE TABLET BY MOUTH NEEDED please dispense generic phentermine 37.5 mg capsule RxNorm: 596564 1 Capsule(s) PO daily 1 po q am / tab po q afternoon 09/13/2013 10/12/2013 Inactive Zomig 5 mg tablet RxNorm: 160674 1 Tablet(s) PO daily 06/28/2013 10/29/2013 Inactive TAKE ONE TABLET BY MOUTH NEEDED please dispense generic phentermine 37.5 mg capsule RxNorm: 480325 1 Capsule(s) PO daily 06/28/2013 07/27/2013 Inactive hydrochlorothiazide 25 mg tablet RxNorm: 148749 1 Tablet(s) PO TAKE ONE TABLET BY MOUTH EVERY DAY 06/25/2013 06/25/2013 Inactive hydrochlorothiazide 25 mg tablet RxNorm: 371634 1 Tablet(s) PO daily TAKE ONE TABLET BY MOUTH EVERY DAY 06/25/2013 11/13/2015 Inactive phentermine 37.5 mg capsule RxNorm: 069682 1 Capsule(s) PO daily 02/23/2013 03/24/2013 Inactive Zomig 5 mg tablet RxNorm: 974891 1 Tablet(s) PO daily 02/07/2013 06/27/2013 Inactive TAKE ONE TABLET BY MOUTH NEEDED Zomig 5 mg tablet RxNorm: 477289 Tablet(s) PO TAKE ONE TABLET BY MOUTH NEEDED 02/07/2013 05/29/2018 Inactive Rocephin 500 mg Solution for Injection RxNorm: 6874213 1.5 Milliliter(s) Inj 01/05/2013 01/05/2013 Inactive amoxicillin 500 mg capsule RxNorm: 769069 1 Capsule(s) PO TID 01/05/2013 01/11/2013 Inactive phentermine 37.5 mg capsule RxNorm: 937751 1 Capsule(s) PO daily 01/05/2013 02/03/2013 Inactive hydrochlorothiazide 25 mg tablet RxNorm: 269595 Tablet(s) PO TAKE ONE TABLET BY MOUTH EVERY DAY 12/07/2012 06/24/2013 Inactive phentermine 37.5 mg capsule RxNorm: 991522 1 Capsule(s) PO daily 11/01/2012 11/30/2012 Inactive Topamax 25 mg tablet RxNorm: 745685 1 Tablet(s) PO BID start with 25mg po in the evening and increase to twice daily after 2 weeks 08/17/2012 09/15/2012 Inactive hydrochlorothiazide 25 mg Tab RxNorm: 305354 Tablet(s) PO 05/01/2012 03/21/2016 Inactive TAKE ONE TABLET BY MOUTH EVERY DAY hydrochlorothiazide 25 mg tablet RxNorm: 711563 1 Tablet(s) PO daily 04/28/2012 04/30/2012 Inactive Zomig 5 mg tablet RxNorm: 486921 1 Tablet(s) PO 01/25/2012 02/06/2013 Inactive TAKE ONE TABLET BY MOUTH NEEDED Zomig 5 mg Tab RxNorm: 636601 1 Tablet(s) PO PRN 11/24/2011 11/23/2011 Inactive Zomig 5 mg Tab RxNorm: 972410 Tablet(s) PO 11/24/2011 01/24/2012 Inactive TAKE ONE TABLET BY MOUTH NEEDED phentermine 37.5 mg capsule RxNorm: 860571 1 Capsule(s) PO daily 10/20/2011 11/18/2011 Inactive Zomig 5 mg Tab RxNorm: 853742 1 Tablet(s) PO PRN No Start Date 11/23/2011 Inactive Zithromax Z-Cameron 250 mg Tab RxNorm: 352579 Tablet(s) PO No Start Date 11/17/2011 Inactive ciprofloxacin 0.3 % eye drops RxNorm: 491973 Drop(s) OPH 1-2 drops every 2 hours while awake x 2 days, then every 4 hour x 5 days No Start Date 12/09/2016 Inactive hydrochlorothiazide 25 mg Tab RxNorm: 548895 1 Tablet(s) PO daily No Start Date 04/27/2012 Inactive Medication Administered Medication Codes Instructions Start Date Status ceftriaxone 500 mg solution for injection RxNorm: 1320173 12/30/2015 No longer Active Kenalog 40 mg/mL suspension for injection RxNorm: 6072507 Milliliter 12/30/2015 No longer Active Rocephin 500 mg Solution for Injection RxNorm: 9521082 1.5Milliliter 01/05/2013 No longer Active Immunizations Vaccine Codes Date Status PPD Unknown 11/29/2014 completed PPD Unknown 06/25/2014 completed PPD Unknown 09/13/2013 completed Assessments Condition Codes Effective Dates Other allergic rhinitis ICD-10: J30.89 ICD-9: 477.8 [...] OVERWEIGHT ICD-9: 278.02 11/29/2014 ESSENTIAL HYPERTENSION SNOMED: 61971120 ICD-9: 401.9 02/18/2014 Pelvic pain in female ICD-9: 625.9 02/18/2014 MIGRAINE NOS/NOT INTRCBL ICD-9: 346.90 02/18/2014 OBESITY ICD-9: 278.00 09/13/2013 COUGH ICD-9: 786.2 01/05/2013 ACUTE URI ICD-9: 465.9 01/05/2013 ROUTINE GYNE EXAM ICD-9: V72.31 11/18/2011 Pharyngitis ICD-9: 462 10/20/2011 Reason For Visit Reason For Visit Effective Dates Notes sore throat 03/02/2019 blood pressure followup 05/19/2018 [...] Item Item Code Result Date Comp Metabolic Fou222 NA 140 mEq/L 05/24/2018 Comp Metabolic Fuu076 K 3.7 mEq/L 05/24/2018 Comp Metabolic Rav942 CL 102 mEq/L 05/24/2018 Comp Metabolic Nlj768 CO2 30.0 mEq/L 05/24/2018 Comp Metabolic Gaa541 ANION GAP 12 05/24/2018 Comp Metabolic Itq567 GLUCOSE 101 mg/dL 05/24/2018 Comp Metabolic Hgz328 Creat 0.8 mg/dL 05/24/2018 Comp Metabolic Bgx439 eGFR 86 ml/min/1.73m2 05/24/2018 Comp Metabolic Lnf243 BUN 10 mg/dL 05/24/2018 Comp Metabolic Hec760 B/C Ratio 13.3 Ratio 05/24/2018 Comp Metabolic Hst243 CALCIUM 10.1 mg/dL 05/24/2018 Comp Metabolic Uic709 ALK PHOS 64 U/L 05/24/2018 Comp Metabolic Fhg173 AST(SGOT) 14 U/L 05/24/2018 Comp Metabolic Llw705 ALT(SGPT) 13 U/L 05/24/2018 Comp Metabolic Jvi214 BILI T 0.5 mg/dL 05/24/2018 Comp Metabolic Zyq553 ALBUMIN 4.5 g/dL 05/24/2018 Comp Metabolic Fgs306 TPRO 6.8 g/dL 05/24/2018 Comp Metabolic Tje455 GLOB 2.3 g/dL 05/24/2018 Comp Metabolic Fzs786 A/G Ratio 2.0 Ratio 05/24/2018 Comp Metabolic Sxd449 Osmo 279 mOsmo 05/24/2018 Cbc With Differential [...] 33.2 pg 05/24/2018 Cbc With Differential Ord2 [place]% 6.5 % 05/24/2018 Cbc With Differential Ord2 [...] 2.32 K/ul 05/24/2018 Cbc With Differential Ord2 [place] ABS# 0.4 K/ul 05/24/2018 Cbc With Differential [...] hTSH II 1.28 uIU/mL 01/12/2017 Comp Metabolic Kla185 NA 136 mEq/L 04/29/2016 Comp Metabolic Mlw505 K 3.8 mEq/L 04/29/2016 Comp Metabolic Onz663 CL 101 mEq/L 04/29/2016 Comp Metabolic Lez612 CO2 32.0 mEq/L 04/29/2016 Comp Metabolic Dxu174 ANION GAP 7 04/29/2016 Comp Metabolic Xil280 GLUCOSE 100 mg/dL 04/29/2016 Comp Metabolic Mfa682 Creat 0.7 mg/dL 04/29/2016 Comp Metabolic Vrz412 eGFR 99 ml/min/1.73m2 04/29/2016 Comp Metabolic Swr141 BUN 11 mg/dL 04/29/2016 Comp Metabolic Wmn663 B/C Ratio 16.4 Ratio 04/29/2016 Comp Metabolic Cmt773 CALCIUM 9.7 mg/dL 04/29/2016 Comp Metabolic Tjx339 ALK PHOS 49 U/L 04/29/2016 Comp Metabolic Nzk798 AST(SGOT) 11 U/L 04/29/2016 Comp Metabolic Pcu533 ALT(SGPT) 10 U/L 04/29/2016 Comp Metabolic Mja456 BILI T 0.6 mg/dL 04/29/2016 Comp Metabolic Aps789 ALBUMIN 4.3 g/dL 04/29/2016 Comp Metabolic Nxx631 TPRO 6.9 g/dL 04/29/2016 Comp Metabolic Mtc829 GLOB 2.6 g/dL 04/29/2016 Comp Metabolic Lqn605 A/G Ratio 1.7 Ratio 04/29/2016 Comp Metabolic Ods742 Osmo 271 mOsmo 04/29/2016 Lipid Ord30 CHOL [...] 32.7 pg 04/29/2016 Cbc With Differential Ord2 [place]% 7.2 % 04/29/2016 Cbc With Differential Ord2 [...] 2.78 K/ul 04/29/2016 Cbc With Differential Ord2 [place] ABS# 0.6 K/ul 04/29/2016 Cbc With Differential [...] 32.7 pg 01/26/2016 Cbc With Differential Ord2 [place]% 7.5 % 01/26/2016 Cbc With Differential Ord2 [...] 3.08 K/ul 01/26/2016 Cbc With Differential Ord2 [place] ABS# 0.9 K/ul 01/26/2016 Cbc With Differential [...] hTSH II 2.28 uIU/mL 01/26/2016 Comp Metabolic Bgm610 NA 140 mEq/L 01/26/2016 Comp Metabolic Qvm314 K 3.9 mEq/L 01/26/2016 Comp Metabolic Tdr891 CL 104 mEq/L 01/26/2016 Comp Metabolic Amz602 CO2 25.0 mEq/L 01/26/2016 Comp Metabolic Gkb236 ANION GAP 15 01/26/2016 Comp Metabolic Cfy798 GLUCOSE 112 mg/dL 01/26/2016 Comp Metabolic Dda677 Creat 0.7 mg/dL 01/26/2016 Comp Metabolic Uvh963 eGFR 96 ml/min/1.73m2 01/26/2016 Comp Metabolic Zvs745 BUN 8 mg/dL 01/26/2016 Comp Metabolic Ell567 B/C Ratio 11.6 Ratio 01/26/2016 Comp Metabolic Nlq024 CALCIUM 10.4 mg/dL 01/26/2016 Comp Metabolic Unm549 ALK PHOS 59 U/L 01/26/2016 Comp Metabolic Uqa301 AST(SGOT) 17 U/L 01/26/2016 Comp Metabolic Adt512 ALT(SGPT) 16 U/L 01/26/2016 Comp Metabolic Sao959 BILI T 0.4 mg/dL 01/26/2016 Comp Metabolic Zvp977 ALBUMIN 4.6 g/dL 01/26/2016 Comp Metabolic Yux344 TPRO 7.4 g/dL 01/26/2016 Comp Metabolic Syu113 GLOB 2.8 g/dL 01/26/2016 Comp Metabolic Mxs370 A/G Ratio 1.6 Ratio 01/26/2016 Comp Metabolic Kca631 Osmo 278 mOsmo 01/26/2016 Review of Systems System Result Effective Dates Constitutional recent illness 03/02/2019 Constitutional No anorexia [...] Result Effective Dates Notes Full Exam - ENT Constitutional general appearance [...] J0696 12/30/2015 URINALYSIS NONAUTO W/O SCOPE CPT-4: 31128 01/09/2015 C URINE RT (URINE CULTURE/COLONY COUNT) CPT-4: 58096 01/09/2015 ROCEPHIN, PER 250 MG CPT- 4: J0696 01/05/2013 PREV VISIT EST AGE 40-64 CPT-4: 00111 11/18/2011 Vital Signs Date Vital 03/02/2019 Blood Pressure 1: 140/76 Code: 8480-6 BMI: 24.5 Code: 74232-5 Heart Rate 1: 94 bpm Height: 5'2" SpO2: 99% Weight: 132 lbs 05/19/2018 Blood Pressure 1: 118/80 Code: 8480-6 BMI: 24.4 Code: 75450-8 Heart Rate 1: 67 bpm Height: 5'2" SpO2: 98% Weight: 131 lbs 06/27/2017 Blood Pressure 1: 138/84 Code: 8480-6 BMI: 25.2 Code: 43009-8 Heart Rate 1: 92 bpm Height: 5'2" SpO2: 98% Weight: 135 lbs 8 oz 04/22/2017 Blood Pressure 1: 122/78 Code: 8480-6 BMI: 27.0 Code: 12989-7 Heart Rate 1: 82 bpm Height: 5'2" SpO2: 98% Weight: 145 lbs 01/11/2017 Blood Pressure 1: 124/76 Code: 8480-6 Heart Rate 1: 79 bpm Height: 5'1" SpO2: 95% 12/03/2016 Blood Pressure 1: 140/86 Code: 8480-6 BMI: 28.3 Code: 29320-4 Heart Rate 1: 80 bpm Height: 5'2" SpO2: 98% Weight: 152 lbs 01/26/2016 Blood Pressure 1: 120/82 Code: 8480-6 BMI: 27.5 Code: 84105-3 Heart Rate 1: 78 bpm Height: 5'2" Weight: 148 lbs 12/30/2015 Blood Pressure 1: 122/78 Code: 8480-6 Heart Rate 1: 88 bpm SpO2: 96% 01/09/2015 Blood Pressure 1: 138/88 Code: 8480-6 BMI: 28.8 Code: 10109-5 Heart Rate 1: 80 bpm Height: 5'2" Weight: 155 lbs 11/29/2014 Blood Pressure 1: 128/80 Code: 8480-6 BMI: 29.2 Code: 80744-9 Heart Rate 1: 80 bpm Height: 5'2" Weight: 157 lbs 08/22/2014 Blood Pressure 1: 130/88 Code: 8480-6 Weight: 160 lbs 06/25/2014 Blood Pressure 1: 124/76 Code: 8480-6 BMI: 29.9 Code: 51728-7 Heart Rate 1: 72 bpm Height: 5'2" Weight: 161 lbs 02/18/2014 Blood Pressure 1: 128/84 Code: 8480-6 BMI: 30.9 Code: 95226-8 Heart Rate 1: 76 bpm Height: 5'2" Weight: 166 lbs 09/13/2013 Blood Pressure 1: 126/82 Code: 8480-6 BMI: 30.1 Code: 34777-5 Heart Rate 1: 80 bpm Height: 5'2" Weight: 162 lbs 06/28/2013 Blood Pressure 1: 122/84 Code: 8480-6 BMI: 30.1 Code: 56164-7 Heart Rate 1: 84 bpm Height: 5'2" Weight: 162 lbs 02/23/2013 Blood Pressure 1: 124/86 Code: 8480-6 BMI: 30.1 Code: 86294-9 Heart Rate 1: 80 bpm Height: 5'2" Weight: 162 lbs 01/05/2013 Blood Pressure 1: 128/78 Code: 8480-6 BMI: 29.0 Code: 60939-5 Heart Rate 1: 80 bpm Height: 5'2" Temperature: 36.6 (C) / 97.8 (F) Weight: 156 lbs 11/01/2012 Blood Pressure 1: 134/88 Code: 8480-6 BMI: 30.5 Code: 52092-3 Heart Rate 1: 80 bpm Height: 5'2" Weight: 164 lbs 08/17/2012 Blood Pressure 1: 114/70 Code: 8480-6 BMI: 28.8 Code: 61414-0 Heart Rate 1: 68 bpm Height: 5'2" Weight: 155 lbs 02/14/2012 Blood Pressure 1: 126/82 Code: 8480-6 BMI: 29.5 Code: 06875-1 Heart Rate 1: 68 bpm Height: 5'1" Respiratory Rate: 16 bpm Weight: 156 lbs 11/18/2011 Blood Pressure 1: 104/72 Code: 8480-6 BMI: 28.6 Code: 40887-5 Heart Rate 1: 20 bpm Height: 5'2" Respiratory Rate: 16 bpm Weight: 154 lbs 10/20/2011 Blood Pressure 1: 137/81 Code: 8480-6 BMI: 28.8 Code: 74594-3 Heart Rate 1: 78 bpm Height: 5'2" Weight: 155 lbs Functional Status No Functional Status data History of Present Illness Symptom Name Status Result Effective Date Notes Location diffusely 03/02/2019 None Quality aching 03/02/2019 [...] sinus congestion Alleviating Factors medication 01/05/2013 [facility] [place] [facility]. helped her sleep sore throat Pertinent [...] -states she will [facility] and states it is less than [...] data Encounters Encounter Performer Location Codes Date ([id number]) 58420 EST. PATIENT, LEVEL III Diagnosis: Acute upper respiratory infection, unspecified[ICD10: J06.9] Diagnosis: Other allergic rhinitis[ICD10: J30.89] [facility] CPT-4: 07639 03/02/2019 ([id number]) 27244 EST. PATIENT, LEVEL III Diagnosis: Essential (primary) hypertension[ICD10: I10] Diagnosis: Mixed hyperlipidemia[ICD10: E78.2] [facility] CPT- 4: 80273 05/19/2018 ([id number]) Miscellaneous no charge Diagnosis: Overweight[ICD10: E66.3] Ira Ely MD [facility] CPT-4: 71604 06/27/2017 ([id number]) Miscellaneous no charge Diagnosis: Overweight[ICD10: E66.3] Ira [facility] MD [facility] CPT-4: 11159 04/22/2017 ([id number]) 43485 EST. PATIENT, LEVEL III Diagnosis: Edema of left eye, unspecified eyelid[ICD10: H02.846] Diagnosis: Localized swelling, mass and lump, head[ICD10: R22.0] Ira Ely MD, [facility] CPT-4: 55943 01/11/2017 77961 EST. PATIENT, LEVEL IV Diagnosis: Dizziness and giddiness[ICD10: R42] Diagnosis: Other allergic rhinitis[ICD10: J30.89] Radha Ely MD, [facility] CPT- 4: 02876 12/03/2016 [id number] EST. PATIENT, LEVEL IV Diagnosis: Acute laryngopharyngitis[ICD10: J06.0] Diagnosis: Acute recurrent maxillary sinusitis[ICD10: J01.01] Diagnosis: Cough[ICD10: R05] Radha Ely MD, [facility] CPT-4: 04344 01/26/2016 [id number] EST. PATIENT, LEVEL IV Diagnosis: Streptococcal pharyngitis[ICD10: J02.0] Diagnosis: Acute recurrent maxillary sinusitis[ICD10: J01.01] Radha Ely MD, [facility] CPT-4: 35826 12/30/2015 ([id number]) 05929 EST. PATIENT, LEVEL III Diagnosis: Urinary tract infection[ICD9: 599.0] Ira Ely MD [facility] CPT-4: 85341 01/09/2015 ([id number]) Miscellaneous no charge Diagnosis: OVERWEIGHT[ICD9: 278.02] Tea [facility] MD [facility] CPT-4: 86298 11/29/2014 ([id number]) Miscellaneous no charge Diagnosis: OVERWEIGHT[ICD9: 278.02] Ira Ely MD, [facility] CPT-4: 96357 06/25/2014 ([id number]) 81526 EST. PATIENT, LEVEL IV Diagnosis: ESSENTIAL HYPERTENSION[SNOMED: 63861513] Diagnosis: MIGRAINE NOS/NOT INTRCBL[ICD9: 346.90] Diagnosis: Pelvic pain in female[ICD9: 625.9] Ira Ely MD [facility] CPT- 4: 71530 02/18/2014 ([id number]) Miscellaneous no charge Diagnosis: OBESITY[ICD9: 278.00] Ira Ely MD [facility] CPT-4: 34803 09/13/2013 ([id number]) 80358 EST. PATIENT, LEVEL III Diagnosis: ESSENTIAL HYPERTENSION[SNOMED: 81124603] Diagnosis: MIGRAINE NOS/NOT INTRCBL[ICD9: 346.90] Tea [facility]ly MD [facility] CPT-4: 16557 06/28/2013 ([id number]) Miscellaneous no charge Diagnosis: OVERWEIGHT[ICD9: 278.02] Tea Ely MD [facility] CPT-4: 06285 02/23/2013 ([id number]) 39431 EST. PATIENT, LEVEL III Diagnosis: ACUTE URI[ICD9: 465.9] Diagnosis: COUGH[ICD9: 786.2] Diagnosis: OVERWEIGHT[ICD9: 278.02] Ira Ely MD [facility] CPT-4: 94319 01/05/2013 ([id number]) 39386 EST. PATIENT, LEVEL III Diagnosis: ESSENTIAL HYPERTENSION[SNOMED: 52363242] Diagnosis: Obesity[ICD9: 278.00] Tea Ely MD [facility] CPT-4: 06212 11/01/2012 ([id number]) 07593 EST. PATIENT, LEVEL IV Diagnosis: ESSENTIAL HYPERTENSION[SNOMED: 81445502] Diagnosis: Migraine headache[ICD9: 346.90] Ira Ely MD [facility] CPT-4: 75788 08/17/2012 ([id number]) 26752 EST. PATIENT, LEVEL II Diagnosis: Overweight (BMI 25.0-29.9)[ICD9: 278.02] Tea Ely MD [facility] CPT-4: 99018 02/14/2012 [id number] EST. PATIENT, LEVEL IV Diagnosis: Overweight[ICD9: 278.02] Diagnosis: ESSENTIAL HYPERTENSION[SNOMED: 44053736] Diagnosis: Pharyngitis[ICD9: 462] Ira Ely MD, [facility] CPT-4: 44627 10/20/2011 Plan of Care Planned Activity Notes Codes Status Date Visit Plan: URI - Pt advised to [...] allergy spray. 03/02/2019 Appointment: Ira Morales WPtel: [address] [place], [place] [id number] [place] [address] (15 min) Moderate 03/02/2019 Patient Education: Patient Medication Summary Completed 03/02/2019 Appointment: Radha Penaloza WPtel: [address] [place], [place] [id number] (15 min) Moderate 09/22/2018 Appointment: Radha Penaloza WPtel: [address] [place], [place] [id number] (15 min) Moderate 09/21/2018 Appointment: Ira Morales WPtel: [address] [place], [place] [phone] (15 min) Moderate 06/23/2018 Appointment: Ira Morales WPtel: [address] [place], [place] [id number] (15 min) Moderate 06/22/2018 Visit Plan: Hypertension - well controlled - continue with current medications, continue with no added salt diet. Pt has been encouraged to exercise daily. The pt has been advised to call the office if there are any acute concerns about change in blood pressure readings at home. Recommend patient start seeing a fluid power mechanic for yearly skin checks/monitoring of moles 05/19/2018 Visit Plan: Hypertension - well controlled - continue with current medications, continue with no added salt diet. Pt has been encouraged to exercise daily. The pt has been advised to call the office if there are any acute concerns about change in blood pressure readings at home. Recommend patient start seeing a fluid power mechanic for yearly skin checks/monitoring of moles 05/19/2018 Appointment: Ira Morales WPtel: [phone] [phone] (15 min) Moderate 05/19/2018 Patient Education: Patient Medication Summary Completed 05/19/2018 Visit Plan: Overweight - chronic issue with this patient. The pt has been counseled about diet changes, calorie restriction, and need to exercise. Pt will RTC in one month for weight check. 06/27/2017 Appointment: Ira Morales WPtel: [phone] [phone] (15 min) Moderate 06/27/2017 Patient Education: Patient Medication Summary Completed 06/27/2017 Patient Education: Obesity Completed 06/27/2017 Visit Plan: Overweight - chronic issue with this patient. The pt has been counseled about diet changes, calorie restriction, and need to exercise. Pt will RTC in one month for weight check. 04/22/2017 Appointment: Ira Mroales WPtel: [phone] [phone] (30 min) Complex 04/22/2017 Patient Education: Patient Medication Summary Completed 04/22/2017 Patient Education: Obesity Completed 04/22/2017 Visit Plan: Left cjt-pdcidlglokhcyz-xzmabtek-Dr Ely in to evaluate patient-plan for besivance eye drops and zpack to cover H.flu-CT scan sinus for further evaluation-will also check TSH today in the office- patient verbalized understanding of plan. 01/11/2017 Appointment: Ira Morales WPtel: [phone] [phone] (30 min) Complex 01/11/2017 Patient Education: [...] instructions/medication interventions. 12/03/2016 Appointment: Radha Penaloza WPtel: [facility] [place] (30 min) Complex 12/03/2016 Patient Education: Patient Medication Summary Completed 12/03/2016 Appointment: Radha Penalozatel: [phone] [facility] [place] (15 min) Moderate 04/01/2016 Visit Plan: Sinusitis [...] Hypertension Completed 02/18/2014 Appointment: Ira Morales WPtel: [facility]5 [id number] [place] [address] Other 02/15/2014 Appointment: Ira Morales WPtel: [address] [place], [place] [phone] Nurse Visit 09/13/2013 Patient Education: Patient Medication [...] weight check. 06/28/2013 Appointment: Ira Morales WPtel: [address] [place], [place] [id number] [place] [address] Follow up 06/28/2013 Patient Education: Patient Medication Summary Completed 06/28/2013 Patient Education: Hypertension Completed 06/28/2013 Visit Plan: Weight and blood pressure check 02/23/2013 Appointment: Ira Morales WPtel: [address] [place], [place] [id number] [place] [address] Follow up 02/23/2013 Patient Education: Patient Medication Summary Completed 02/23/2013 Visit Plan: URI -cough- Pt advised to increase fluids, vitamin C. Discussed natural and expected course of this diagnosis and need to alert me if symtpoms do not follow expected course, or if any worse. RX sent to patient's pharmacy. Rocephin injection today in the office. Overweight-refill phentermine 01/05/2013 Appointment: Ira Morales WPtel: [address] [place], [place] [phone] Sick 01/05/2013 Patient Education: Patient Medication Summary [...] pressure elevated. 11/01/2012 Appointment: Ira Morales WPtel: [address] [place], [place] [id number] Physical 11/01/2012 Patient Education: Patient Medication Summary [...] 2 weeks. 08/17/2012 Appointment: Ira Morales WPtel: [address] [place], [place] [phone] [facility] 08/17/2012 Patient Education: Patient Medication Summary Completed 08/17/2012 Patient Education: High Blood Pressure: Essential Hypertension Completed 08/17/2012 Appointment: Tea Ely WPtel: [address] [place], [place] [id number] Surgical Procedure 07/11/2012 Appointment: Tea Ely WPtel: [address] [place], [place] [phone] Surgical Procedure 02/22/2012 Visit Plan: Overweight - [...] weight check. 02/14/2012 Appointment: Tea Ely WPtel: [facility] Other 02/14/2012 Patient Education: Patient Medication [...] punch biopsy. 11/18/2011 Appointment: Tea Ely WPtel: [facility] Pap Only 11/18/2011 Patient Education: Patient [...] at home. 10/20/2011 Appointment: Ira Morales WPtel: [phone] [place] Other 10/20/2011 Patient Education: Patient Medication Summary Completed 10/20/2011 Patient Education: High Blood Pressure: Essential Hypertension Completed 10/20/2011 Appointment: Ira Morales WPtel: [phone] Other 09/28/2011 Instructions Comment . Allergies - chronic - recommended pt [...] at home. Recommend patient start seeing a fluid power mechanic for yearly skin checks/monitoring of moles . URI -cough- Pt advised to increase fluids, vitamin C. Discussed natural and expected course of this diagnosis and need to alert me if symtpoms do not follow expected course, or if any worse. RX sent to patient's pharmacy. Rocephin injection today in the office. Overweight-refill phentermine zyrtec or kenan salt water gargles start [...] in the nasal steroid allergy spray. . Overweight - chronic issue with this [...] blood pressure-call if blood pressure elevated. . Well Adult Female - exam completed. [...] be scheduled for a punch biopsy. . Urinary Tract Infection-discussed natural and expected [...] . Weight and blood pressure check . Overweight - chronic issue with this [...] at home. Recommend patient start seeing a fluid power mechanic for yearly skin checks/monitoring of moles . [...] increase to BID after 2 weeks. . Overweight - chronic issue with this patient. The pt has been counseled about diet changes, calorie restriction, and need to exercise. Pt will RTC in one month for weight check. RESTART TOPAMAX 25MG AT BEDTIME . Hypertension - well controlled - continue with current medications, continue with no added salt diet. Pt has been encouraged to exercise daily. The pt has been advised to call the office if there are any acute concerns about change in blood pressure readings at home. Migraines-restart topamax-check labs Pelvic pain-1 ovary remaining-recommend pelvic ultrasound . Sinusitis - Pt has acute infection [...] any worse. RX sent to patient's pharmacy. . Hypertension - well controlled - continue with current medications, continue with no added salt diet. Pt has been encouraged to exercise daily. The pt has been advised to call the office if there are any acute concerns about change in blood pressure readings at home. Migraines-well controlled-refill zomig Obesity-refill phentermine-f/u in 1 month for weight check. . Left pqw-hxvllrlhhghcbq-uhnjtmjd-Dr Ely in to evaluate patient-plan for besivance eye drops and zpack to cover H.flu-CT scan sinus for further evaluation-will also check TSH today in the office-patient verbalized understanding of plan.
--- OUTSIDE RECORDS SUMMARY | 2019-07-06 10:16 | XMS REPORT | Continuity of Care Document ---
Author Organization Unknown Address Unknown Phone Unavailable Allergies Active Description Code Type Severity Reaction Onset Reported/Identified Relationship to Patient Clinical Status Yes No Known Drug Allergies [id number] Drug Allergy Unknown N/A 03/11/2008 Medications There is no data. Problems Date Dx Coded Attending Type Code Diagnosis Diagnosed By 11/20/2015 MARIA M DAVALOS MD Ot 625.9 01/17/2017 MARIA M DAVALOS MD Ot 625.9 FEM GENITAL SYMPTOMS NOS 01/20/2017 LUISA TEMPLETON Ot R22.0 LOCALIZED SWELLING, MASS AND LUMP, HEAD 01/27/2017 LUISA TEMPLETON Ot R22.0 LOCALIZED SWELLING, MASS AND LUMP, HEAD 12/23/2017 MARIA M DAVALOS MD Ot 625.9 FEM GENITAL SYMPTOMS NOS 12/23/2017 LUISA TEMPLETON Ot R22.0 LOCALIZED SWELLING, MASS AND LUMP, HEAD 06/21/2019 MARIA M DAVALOS MD Ot 625.9 FEM GENITAL SYMPTOMS NOS 06/21/2019 LUISA TEMPLETON Ot R22.0 LOCALIZED SWELLING, MASS AND LUMP, HEAD 07/02/2019 RUTH RUSSELL MD Ot Z01.818 ENCOUNTER FOR OTHER PREPROCEDURAL EXAMIN Procedures There is no data. Results There is no data. Encounters ACCT No. Visit Date/Time Discharge Status Pt. Type Provider Facility Loc./Unit Complaint [id number] 07/02/2019 06:35:00 07/02/2019 16:25:00 DIS Outpatient RUTH RUSSELL MD [facility] PREOP COLONOSCOPY [id number] 01/17/2017 15:41:00 01/17/2017 23:59:59 CLS Outpatient LUISA TEMPLETON [facility] RAD L EYE SWELLING [id number] 03/01/2014 15:13:00 03/01/2014 23:59:59 CLS Outpatient MARIA M DAVALOS MD [facility] RAD PELVIC PAIN [id number] 07/06/2019 08:00:00 PEN Preadmit YVONNE CUNNINGHAM, RUTH Rivas [facility] ENDO CHRONIC CONSTIPATION 200106/27/2017 10:13:02 06/27/2017 23:59:59 CLS Outpatient [id number] 09/08/2018 08:45:00 09/08/2018 23:59:00 DIS Outpatient MARIA M DAVALOS [id number] 07/06/2017 08:01:00 07/06/2017 23:59:00 DIS Outpatient MARIA M DAVALOS
--- OUTSIDE RECORDS SUMMARY | 2019-07-06 10:16 | XMS REPORT | CCD ---
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/[address]: 243624934 Nonsmoker 09/27/2011 Has the patient ever used [...] Fill Instructions amoxicillin 500 mg tablet RxNorm: 215927 1 Tablet(s) PO TID 03/02/2019 03/08/2019 Active Zomig 5 mg tablet RxNorm: 467958 TAKE ONE TABLET BY MOUTH ONCE DAILY NEEDED 05/30/2018 No Stop Date Active hydrochlorothiazide 25 mg tablet RxNorm: 939037 1 Tablet(s) PO daily TAKE ONE TABLET BY MOUTH ONCE DAILY 05/19/2018 08/11/2019 Active patient to call when needs refills hydrochlorothiazide 25 mg tablet RxNorm: 916831 TAKE ONE TABLET BY MOUTH ONCE DAILY 04/25/2018 05/18/2018 Inactive hydrochlorothiazide 25 mg tablet RxNorm: 209641 TAKE ONE TABLET BY MOUTH ONCE DAILY 10/24/2017 04/24/2018 Inactive phentermine 37.5 mg capsule RxNorm: 091346 1 Capsule(s) PO daily 1 po q am 1/2 tab po q afternoon 06/27/2017 07/26/2017 Inactive phentermine 37.5 mg capsule RxNorm: 478425 1 Capsule(s) PO daily 1 po q am 1/2 tab po q afternoon 04/22/2017 05/21/2017 Inactive Zomig 5 mg tablet RxNorm: 326789 TAKE ONE TABLET BY MOUTH ONCE DAILY NEEDED 04/18/2017 05/23/2017 Inactive hydrochlorothiazide 25 mg tablet RxNorm: 959127 TAKE ONE TABLET BY MOUTH ONCE DAILY 04/18/2017 10/14/2017 Inactive Zithromax Z-Cameron 250 mg tablet RxNorm: 722704 1 Tablet(s) PO UD 01/11/2017 01/15/2017 Inactive Besivance 0.6 % eye drops,suspension RxNorm: 913526 1 Drop(s) OPH TID 01/11/2017 01/17/2017 Inactive ciprofloxacin 0.3 % eye drops RxNorm: 337587 Drop(s) OPH 1-2 drops every 2 hours while awake x 2 days, then every 4 hour x 5 days 12/10/2016 No Stop Date Active meclizine 25 mg tablet RxNorm: 182855 1 Tablet(s) PO TID as needed 12/03/2016 12/12/2016 Inactive Zithromax Z-Cameron 250 mg tablet RxNorm: 842696 1 Tablet(s) PO UD 12/03/2016 01/10/2017 Inactive Lipitor 10 mg tablet RxNorm: 163840 Tablet(s) 1 Tablet(s) PO QPM TAKE ONE TABLET BY MOUTH ONCE DAILY IN THE EVENING 03/22/2016 05/18/2018 Inactive hydrochlorothiazide 25 mg tablet RxNorm: 591954 Tablet(s) PO 03/22/2016 08/18/2016 Inactive TAKE ONE TABLET BY MOUTH EVERY DAY clonidine HCl 0.1 mg tablet RxNorm: 311219 1/2 Tablet(s) PO BID as needed for hot flashes 02/19/2016 03/19/2016 Inactive Zomig 5 mg tablet RxNorm: 525268 1 Tablet(s) PO daily 02/02/2016 04/17/2017 Inactive TAKE ONE TABLET BY MOUTH NEEDED please dispense generic Keflex 500 mg capsule RxNorm: 010154 1 Capsule(s) PO TID 01/26/2016 02/04/2016 Inactive hydrochlorothiazide 25 mg tablet RxNorm: 859859 1 Tablet(s) PO daily TAKE ONE TABLET BY MOUTH EVERY DAY 01/15/2016 03/14/2016 Inactive Lipitor 10 mg tablet RxNorm: 482835 1 Tablet(s) PO QPM TAKE ONE TABLET BY MOUTH ONCE DAILY IN THE EVENING 01/15/2016 03/14/2016 Inactive Kenalog 40 mg/mL suspension for injection RxNorm: 8120778 Milliliter(s) Inj 12/30/2015 12/30/2015 Inactive amoxicillin 500 mg capsule RxNorm: 602061 1 Capsule(s) PO TID 12/30/2015 01/05/2016 Inactive ceftriaxone 500 mg solution for injection RxNorm: 3206767 Inj 12/30/2015 12/30/2015 Inactive hydrochlorothiazide 25 mg tablet RxNorm: 264458 1 Tablet(s) PO daily TAKE ONE TABLET BY MOUTH EVERY DAY 11/14/2015 01/12/2016 Inactive Patient needs to make an appt Lipitor 10 mg tablet RxNorm: 323703 1 Tablet(s) PO QPM TAKE ONE TABLET BY MOUTH ONCE DAILY IN THE EVENING 11/14/2015 01/12/2016 Inactive Patient needs to make an appt clonidine HCl 0.1 mg tablet RxNorm: 091670 1/2 Tablet(s) PO BID as needed for hot flashes 02/14/2015 02/13/2015 Inactive clonidine HCl 0.1 mg tablet RxNorm: 499608 1/2 Tablet(s) PO BID as needed for hot flashes 02/14/2015 03/15/2015 Inactive Zomig 5 mg tablet RxNorm: 302390 1 Tablet(s) PO daily 02/13/2015 02/01/2016 Inactive TAKE ONE TABLET BY MOUTH NEEDED please dispense generic Bactrim DS 800 mg-160 mg tablet RxNorm: 604832 1 Tablet(s) PO BID 01/21/2015 01/20/2015 Inactive Bactrim DS 800 mg-160 mg tablet RxNorm: 596005 1 Tablet(s) PO BID 01/21/2015 01/27/2015 Inactive Cipro 500 mg tablet RxNorm: 600718 1 Tablet(s) PO BID 01/09/2015 01/15/2015 Inactive Pyridium 200 mg tablet RxNorm: 3011319 1 Tablet(s) PO TID PRN 01/09/2015 01/15/2015 Inactive phentermine 37.5 mg capsule RxNorm: 859061 1 Capsule(s) PO daily 1 po q am 1/2 tab po q afternoon 11/29/2014 12/28/2014 Inactive Lipitor 10 mg tablet RxNorm: 077689 TAKE ONE TABLET BY MOUTH ONCE DAILY IN THE EVENING 10/20/2014 10/14/2015 Inactive hydrochlorothiazide 25 mg tablet RxNorm: 067548 TAKE ONE TABLET BY MOUTH EVERY DAY 10/20/2014 10/14/2015 Inactive phentermine 37.5 mg capsule RxNorm: 451759 1 Capsule(s) PO daily 1 po q am 1/2 tab po q afternoon 08/22/2014 09/20/2014 Inactive Lipitor 10 mg tablet RxNorm: 879350 TAKE ONE TABLET BY MOUTH ONCE DAILY IN THE EVENING 07/18/2014 10/15/2014 Inactive hydrochlorothiazide 25 mg tablet RxNorm: 782818 TAKE ONE TABLET BY MOUTH EVERY DAY 07/18/2014 10/15/2014 Inactive Zomig 5 mg tablet RxNorm: 921291 1 Tablet(s) PO daily 07/17/2014 02/12/2015 Inactive TAKE ONE TABLET BY MOUTH NEEDED please dispense generic Lipitor 10 mg tablet RxNorm: 948435 1 Tablet(s) PO QPM 02/21/2014 06/20/2014 Inactive Lipitor 10 mg tablet RxNorm: 577876 1 Tablet(s) PO QPM 02/20/2014 02/20/2014 Inactive Zomig 5 mg tablet RxNorm: 006072 1 Tablet(s) PO daily 10/30/2013 07/16/2014 Inactive TAKE ONE TABLET BY MOUTH NEEDED please dispense generic phentermine 37.5 mg capsule RxNorm: 036254 1 Capsule(s) PO daily 1 po q am / tab po q afternoon 09/13/2013 10/12/2013 Inactive Zomig 5 mg tablet RxNorm: 204988 1 Tablet(s) PO daily 06/28/2013 10/29/2013 Inactive TAKE ONE TABLET BY MOUTH NEEDED please dispense generic phentermine 37.5 mg capsule RxNorm: 365507 1 Capsule(s) PO daily 06/28/2013 07/27/2013 Inactive hydrochlorothiazide 25 mg tablet RxNorm: 524652 1 Tablet(s) PO TAKE ONE TABLET BY MOUTH EVERY DAY 06/25/2013 06/25/2013 Inactive hydrochlorothiazide 25 mg tablet RxNorm: 962314 1 Tablet(s) PO daily TAKE ONE TABLET BY MOUTH EVERY DAY 06/25/2013 11/13/2015 Inactive phentermine 37.5 mg capsule RxNorm: 336067 1 Capsule(s) PO daily 02/23/2013 03/24/2013 Inactive Zomig 5 mg tablet RxNorm: 057152 1 Tablet(s) PO daily 02/07/2013 06/27/2013 Inactive TAKE ONE TABLET BY MOUTH NEEDED Zomig 5 mg tablet RxNorm: 250159 Tablet(s) PO TAKE ONE TABLET BY MOUTH NEEDED 02/07/2013 05/29/2018 Inactive Rocephin 500 mg Solution for Injection RxNorm: 1019068 1.5 Milliliter(s) Inj 01/05/2013 01/05/2013 Inactive amoxicillin 500 mg capsule RxNorm: 211397 1 Capsule(s) PO TID 01/05/2013 01/11/2013 Inactive phentermine 37.5 mg capsule RxNorm: 868700 1 Capsule(s) PO daily 01/05/2013 02/03/2013 Inactive hydrochlorothiazide 25 mg tablet RxNorm: 713387 Tablet(s) PO TAKE ONE TABLET BY MOUTH EVERY DAY 12/07/2012 06/24/2013 Inactive phentermine 37.5 mg capsule RxNorm: 698642 1 Capsule(s) PO daily 11/01/2012 11/30/2012 Inactive Topamax 25 mg tablet RxNorm: 712154 1 Tablet(s) PO BID start with 25mg po in the evening and increase to twice daily after 2 weeks 08/17/2012 09/15/2012 Inactive hydrochlorothiazide 25 mg Tab RxNorm: 082691 Tablet(s) PO 05/01/2012 03/21/2016 Inactive TAKE ONE TABLET BY MOUTH EVERY DAY hydrochlorothiazide 25 mg tablet RxNorm: 903272 1 Tablet(s) PO daily 04/28/2012 04/30/2012 Inactive Zomig 5 mg tablet RxNorm: 308379 1 Tablet(s) PO 01/25/2012 02/06/2013 Inactive TAKE ONE TABLET BY MOUTH NEEDED Zomig 5 mg Tab RxNorm: 006210 1 Tablet(s) PO PRN 11/24/2011 11/23/2011 Inactive Zomig 5 mg Tab RxNorm: 391559 Tablet(s) PO 11/24/2011 01/24/2012 Inactive TAKE ONE TABLET BY MOUTH NEEDED phentermine 37.5 mg capsule RxNorm: 192414 1 Capsule(s) PO daily 10/20/2011 11/18/2011 Inactive Zomig 5 mg Tab RxNorm: 737825 1 Tablet(s) PO PRN No Start Date 11/23/2011 Inactive Zithromax Z-Cameron 250 mg Tab RxNorm: 307032 Tablet(s) PO No Start Date 11/17/2011 Inactive ciprofloxacin 0.3 % eye drops RxNorm: 811079 Drop(s) OPH 1-2 drops every 2 hours while awake x 2 days, then every 4 hour x 5 days No Start Date 12/09/2016 Inactive hydrochlorothiazide 25 mg Tab RxNorm: 967417 1 Tablet(s) PO daily No Start Date 04/27/2012 Inactive Medication Administered Medication Codes Instructions Start Date Status ceftriaxone 500 mg solution for injection RxNorm: 3377033 12/30/2015 No longer Active Kenalog 40 mg/mL suspension for injection RxNorm: 6904590 Milliliter 12/30/2015 No longer Active Rocephin 500 mg Solution for Injection RxNorm: 7580518 1.5Milliliter 01/05/2013 No longer Active Immunizations Vaccine [...] OVERWEIGHT ICD-9: 278.02 11/29/2014 ESSENTIAL HYPERTENSION SNOMED: 67965629 ICD-9: 401.9 02/18/2014 Pelvic pain in female [...] Item Item Code Result Date Comp Metabolic Rrx798 NA 140 mEq/L 05/24/2018 Comp Metabolic Onr667 K 3.7 mEq/L 05/24/2018 Comp Metabolic Jgi087 CL 102 mEq/L 05/24/2018 Comp Metabolic Tyn097 CO2 30.0 mEq/L 05/24/2018 Comp Metabolic Ttt545 ANION GAP 12 05/24/2018 Comp Metabolic Yru839 GLUCOSE 101 mg/dL 05/24/2018 Comp Metabolic Qxb655 Creat 0.8 mg/dL 05/24/2018 Comp Metabolic Efy634 eGFR 86 ml/min/1.73m2 05/24/2018 Comp Metabolic Hzf775 BUN 10 mg/dL 05/24/2018 Comp Metabolic Pay552 B/C Ratio 13.3 Ratio 05/24/2018 Comp Metabolic Mmk228 CALCIUM 10.1 mg/dL 05/24/2018 Comp Metabolic Bxl291 ALK PHOS 64 U/L 05/24/2018 Comp Metabolic Hkv294 AST(SGOT) 14 U/L 05/24/2018 Comp Metabolic Kjf953 ALT(SGPT) 13 U/L 05/24/2018 Comp Metabolic Rqq247 BILI T 0.5 mg/dL 05/24/2018 Comp Metabolic Eke924 ALBUMIN 4.5 g/dL 05/24/2018 Comp Metabolic Cfk715 TPRO 6.8 g/dL 05/24/2018 Comp Metabolic Snt786 GLOB 2.3 g/dL 05/24/2018 Comp Metabolic Ygq051 A/G Ratio 2.0 Ratio 05/24/2018 Comp Metabolic Htw632 Osmo 279 mOsmo 05/24/2018 Cbc With Differential [...] 33.2 pg 05/24/2018 Cbc With Differential Ord2 [place]% 6.5 % 05/24/2018 Cbc With Differential Ord2 [...] 2.32 K/ul 05/24/2018 Cbc With Differential Ord2 [place] ABS# 0.4 K/ul 05/24/2018 Cbc With Differential [...] hTSH II 1.28 uIU/mL 01/12/2017 Comp Metabolic Poh578 NA 136 mEq/L 04/29/2016 Comp Metabolic Oni435 K 3.8 mEq/L 04/29/2016 Comp Metabolic Fqq165 CL 101 mEq/L 04/29/2016 Comp Metabolic Ven773 CO2 32.0 mEq/L 04/29/2016 Comp Metabolic Edx772 ANION GAP 7 04/29/2016 Comp Metabolic Wij961 GLUCOSE 100 mg/dL 04/29/2016 Comp Metabolic Yft334 Creat 0.7 mg/dL 04/29/2016 Comp Metabolic Nwz706 eGFR 99 ml/min/1.73m2 04/29/2016 Comp Metabolic Hxs723 BUN 11 mg/dL 04/29/2016 Comp Metabolic Lkx468 B/C Ratio 16.4 Ratio 04/29/2016 Comp Metabolic Juh720 CALCIUM 9.7 mg/dL 04/29/2016 Comp Metabolic Tzg777 ALK PHOS 49 U/L 04/29/2016 Comp Metabolic Qbg990 AST(SGOT) 11 U/L 04/29/2016 Comp Metabolic Fqc093 ALT(SGPT) 10 U/L 04/29/2016 Comp Metabolic Yld637 BILI T 0.6 mg/dL 04/29/2016 Comp Metabolic Bpt501 ALBUMIN 4.3 g/dL 04/29/2016 Comp Metabolic Vjj680 TPRO 6.9 g/dL 04/29/2016 Comp Metabolic Fjc103 GLOB 2.6 g/dL 04/29/2016 Comp Metabolic Vwp187 A/G Ratio 1.7 Ratio 04/29/2016 Comp Metabolic Ltb285 Osmo 271 mOsmo 04/29/2016 Lipid Ord30 CHOL [...] 32.7 pg 04/29/2016 Cbc With Differential Ord2 [place]% 7.2 % 04/29/2016 Cbc With Differential Ord2 [...] 2.78 K/ul 04/29/2016 Cbc With Differential Ord2 [place] ABS# 0.6 K/ul 04/29/2016 Cbc With Differential [...] 32.7 pg 01/26/2016 Cbc With Differential Ord2 [place]% 7.5 % 01/26/2016 Cbc With Differential Ord2 [...] 3.08 K/ul 01/26/2016 Cbc With Differential Ord2 [place] ABS# 0.9 K/ul 01/26/2016 Cbc With Differential [...] hTSH II 2.28 uIU/mL 01/26/2016 Comp Metabolic Had081 NA 140 mEq/L 01/26/2016 Comp Metabolic Wjv139 K 3.9 mEq/L 01/26/2016 Comp Metabolic Nnc146 CL 104 mEq/L 01/26/2016 Comp Metabolic Dnc393 CO2 25.0 mEq/L 01/26/2016 Comp Metabolic Zhd163 ANION GAP 15 01/26/2016 Comp Metabolic Ogg998 GLUCOSE 112 mg/dL 01/26/2016 Comp Metabolic Jlo739 Creat 0.7 mg/dL 01/26/2016 Comp Metabolic Exb639 eGFR 96 ml/min/1.73m2 01/26/2016 Comp Metabolic Dro542 BUN 8 mg/dL 01/26/2016 Comp Metabolic Fzg207 B/C Ratio 11.6 Ratio 01/26/2016 Comp Metabolic Jcn499 CALCIUM 10.4 mg/dL 01/26/2016 Comp Metabolic Ooi537 ALK PHOS 59 U/L 01/26/2016 Comp Metabolic Zth341 AST(SGOT) 17 U/L 01/26/2016 Comp Metabolic Oym121 ALT(SGPT) 16 U/L 01/26/2016 Comp Metabolic Vmr869 BILI T 0.4 mg/dL 01/26/2016 Comp Metabolic Arl000 ALBUMIN 4.6 g/dL 01/26/2016 Comp Metabolic Asv602 TPRO 7.4 g/dL 01/26/2016 Comp Metabolic Pwj076 GLOB 2.8 g/dL 01/26/2016 Comp Metabolic Dry150 A/G Ratio 1.6 Ratio 01/26/2016 Comp Metabolic Zji076 Osmo 278 mOsmo 01/26/2016 Review of Systems [...] J0696 12/30/2015 URINALYSIS NONAUTO W/O SCOPE CPT-4: 91694 01/09/2015 C URINE RT (URINE CULTURE/COLONY COUNT) CPT-4: 72914 01/09/2015 ROCEPHIN, PER 250 MG CPT- 4: J0696 01/05/2013 PREV VISIT EST AGE 40-64 CPT-4: 16472 11/18/2011 Vital Signs Date Vital 03/02/2019 Blood Pressure 1: 140/76 Code: 8480-6 BMI: 24.5 Code: 34851-4 Heart Rate 1: 94 bpm Height: 5'2" SpO2: 99% Weight: 132 lbs 05/19/2018 Blood Pressure 1: 118/80 Code: 8480-6 BMI: 24.4 Code: 47945-9 Heart Rate 1: 67 bpm Height: 5'2" SpO2: 98% Weight: 131 lbs 06/27/2017 Blood Pressure 1: 138/84 Code: 8480-6 BMI: 25.2 Code: 74552-9 Heart Rate 1: 92 bpm Height: 5'2" SpO2: 98% Weight: 135 lbs 8 oz 04/22/2017 Blood Pressure 1: 122/78 Code: 8480-6 BMI: 27.0 Code: 32281-3 Heart Rate 1: 82 bpm Height: 5'2" SpO2: 98% Weight: 145 lbs 01/11/2017 Blood Pressure 1: 124/76 Code: 8480-6 Heart Rate 1: 79 bpm Height: 5'1" SpO2: 95% 12/03/2016 Blood Pressure 1: 140/86 Code: 8480-6 BMI: 28.3 Code: 78108-7 Heart Rate 1: 80 bpm Height: 5'2" SpO2: 98% Weight: 152 lbs 01/26/2016 Blood Pressure 1: 120/82 Code: 8480-6 BMI: 27.5 Code: 26658-6 Heart Rate 1: 78 bpm Height: 5'2" Weight: 148 lbs 12/30/2015 Blood Pressure 1: 122/78 Code: 8480-6 Heart Rate 1: 88 bpm SpO2: 96% 01/09/2015 Blood Pressure 1: 138/88 Code: 8480-6 BMI: 28.8 Code: 96067-9 Heart Rate 1: 80 bpm Height: 5'2" Weight: 155 lbs 11/29/2014 Blood Pressure 1: 128/80 Code: 8480-6 BMI: 29.2 Code: 19944-1 Heart Rate 1: 80 bpm Height: 5'2" Weight: 157 lbs 08/22/2014 Blood Pressure 1: 130/88 Code: 8480-6 Weight: 160 lbs 06/25/2014 Blood Pressure 1: 124/76 Code: 8480-6 BMI: 29.9 Code: 73345-8 Heart Rate 1: 72 bpm Height: 5'2" Weight: 161 lbs 02/18/2014 Blood Pressure 1: 128/84 Code: 8480-6 BMI: 30.9 Code: 30176-1 Heart Rate 1: 76 bpm Height: 5'2" Weight: 166 lbs 09/13/2013 Blood Pressure 1: 126/82 Code: 8480-6 BMI: 30.1 Code: 40413-0 Heart Rate 1: 80 bpm Height: 5'2" Weight: 162 lbs 06/28/2013 Blood Pressure 1: 122/84 Code: 8480-6 BMI: 30.1 Code: 40257-8 Heart Rate 1: 84 bpm Height: 5'2" Weight: 162 lbs 02/23/2013 Blood Pressure 1: 124/86 Code: 8480-6 BMI: 30.1 Code: 52609-2 Heart Rate 1: 80 bpm Height: 5'2" Weight: 162 lbs 01/05/2013 Blood Pressure 1: 128/78 Code: 8480-6 BMI: 29.0 Code: 87532-8 Heart Rate 1: 80 bpm Height: 5'2" Temperature: 36.6 (C) / 97.8 (F) Weight: 156 lbs 11/01/2012 Blood Pressure 1: 134/88 Code: 8480-6 BMI: 30.5 Code: 03180-9 Heart Rate 1: 80 bpm Height: 5'2" Weight: 164 lbs 08/17/2012 Blood Pressure 1: 114/70 Code: 8480-6 BMI: 28.8 Code: 38218-7 Heart Rate 1: 68 bpm Height: 5'2" Weight: 155 lbs 02/14/2012 Blood Pressure 1: 126/82 Code: 8480-6 BMI: 29.5 Code: 76232-7 Heart Rate 1: 68 bpm Height: 5'1" Respiratory Rate: 16 bpm Weight: 156 lbs 11/18/2011 Blood Pressure 1: 104/72 Code: 8480-6 BMI: 28.6 Code: 52839-4 Heart Rate 1: 20 bpm Height: 5'2" Respiratory Rate: 16 bpm Weight: 154 lbs 10/20/2011 Blood Pressure 1: 137/81 Code: 8480-6 BMI: 28.8 Code: 66493-7 Heart Rate 1: 78 bpm Height: 5'2" [...] sinus congestion Alleviating Factors medication 01/05/2013 Ruby Acra plus. helped her sleep sore throat Pertinent [...] -states she will occasionally check it at [facility] and states it is less [...] data Encounters Encounter Performer Location Codes Date ([id number]) 30350 EST. PATIENT, LEVEL III Diagnosis: Acute upper respiratory infection, unspecified[ICD10: J06.9] Diagnosis: Other allergic rhinitis[ICD10: J30.89] [facility] CPT-4: 68069 03/02/2019 ([id number]) 42791 EST. PATIENT, LEVEL III Diagnosis: Essential (primary) hypertension[ICD10: I10] Diagnosis: Mixed hyperlipidemia[ICD10: E78.2] [facility] CPT- 4: 78011 05/19/2018 ([id number]) Miscellaneous no charge Diagnosis: Overweight[ICD10: E66.3] [facility] MD [facility] CPT-4: 53452 06/27/2017 ([id number]) Miscellaneous no charge Diagnosis: Overweight[ICD10: E66.3] [facility] MD [facility] CPT-4: 85301 04/22/2017 ([id number]) 58902 EST. PATIENT, LEVEL III Diagnosis: Edema of left eye, unspecified eyelid[ICD10: H02.846] Diagnosis: Localized swelling, mass and lump, head[ICD10: R22.0] [facility] MD, [facility] CPT-4: 27775 01/11/2017 02432 EST. PATIENT, LEVEL IV Diagnosis: Dizziness and giddiness[ICD10: R42] Diagnosis: Other allergic rhinitis[ICD10: J30.89] Radha E[facility] MD, [facility] CPT- 4: 77852 12/03/2016 78303 EST. PATIENT, LEVEL IV Diagnosis: Acute laryngopharyngitis[ICD10: J06.0] Diagnosis: Acute recurrent maxillary sinusitis[ICD10: J01.01] Diagnosis: Cough[ICD10: R05] Radha Ely MD, [facility] CPT-4: 52497 01/26/2016 07459 EST. PATIENT, LEVEL IV Diagnosis: Streptococcal pharyngitis[ICD10: J02.0] Diagnosis: Acute recurrent maxillary sinusitis[ICD10: J01.01] Radha [facility] MD, [facility] CPT-4: 43945 12/30/2015 ([id number]) 01035 EST. PATIENT, LEVEL III Diagnosis: Urinary tract infection[ICD9: 599.0] [facility] MD [facility] CPT-4: 84418 01/09/2015 ([id number]) Miscellaneous no charge Diagnosis: OVERWEIGHT[ICD9: 278.02] [facility] CPT-4: 87136 11/29/2014 ([id number]) Miscellaneous no charge Diagnosis: OVERWEIGHT[ICD9: 278.02] Ira [facility] MD, [facility] CPT-4: 48590 06/25/2014 ([id number]) 42690 EST. PATIENT, LEVEL IV Diagnosis: ESSENTIAL HYPERTENSION[SNOMED: 68043083] Diagnosis: MIGRAINE NOS/NOT INTRCBL[ICD9: 346.90] Diagnosis: Pelvic pain in female[ICD9: 625.9] Ira [facility] MD [facility] CPT- 4: 30975 02/18/2014 ([id number]) Miscellaneous no charge Diagnosis: OBESITY[ICD9: 278.00] [facility] MD [facility] CPT-4: 39157 09/13/2013 ([id number]) 82656 EST. PATIENT, LEVEL III Diagnosis: ESSENTIAL HYPERTENSION[SNOMED: 57585645] Diagnosis: MIGRAINE NOS/NOT INTRCBL[ICD9: 346.90] [facility] MD [facility] CPT-4: 45887 06/28/2013 ([id number]) Miscellaneous no charge Diagnosis: OVERWEIGHT[ICD9: 278.02] [facility] MD [facility] CPT-4: 05432 02/23/2013 ([id number]) 95015 EST. PATIENT, LEVEL III Diagnosis: ACUTE URI[ICD9: 465.9] Diagnosis: COUGH[ICD9: 786.2] Diagnosis: OVERWEIGHT[ICD9: 278.02] [facility] MD [facility] CPT-4: 18281 01/05/2013 ([id number]) 92793 EST. PATIENT, LEVEL III Diagnosis: ESSENTIAL HYPERTENSION[SNOMED: 40357317] Diagnosis: Obesity[ICD9: 278.00] [facility] MD [facility] CPT-4: 28401 11/01/2012 ([id number]) 39111 EST. PATIENT, LEVEL IV Diagnosis: ESSENTIAL HYPERTENSION[SNOMED: 18468743] Diagnosis: Migraine headache[ICD9: 346.90] Ira [facility] MD [facility] CPT-4: 44384 08/17/2012 ([id number]) 56700 EST. PATIENT, LEVEL II Diagnosis: Overweight (BMI 25.0-29.9)[ICD9: 278.02] [facility] MD [facility] CPT-4: 39272 02/14/2012 97449 EST. PATIENT, LEVEL IV Diagnosis: Overweight[ICD9: 278.02] Diagnosis: ESSENTIAL HYPERTENSION[SNOMED: 75041668] Diagnosis: Pharyngitis[ICD9: 462] Ira Ely MD, [facility] CPT-4: 86427 10/20/2011 Plan of Care Planned Activity Notes [...] in the nasal steroid allergy spray. 03/02/2019 Patient Education: Patient Medication Summary Completed 03/02/2019 Appointment: Radha Penaloza WPtel: [facility] (15 min) Moderate 09/22/2018 Appointment: Radha Penaloza WPtel: [facility] (15 min) Moderate 09/21/2018 Appointment: Ira Morales WPtel: [phone] [place] (15 min) Moderate 06/23/2018 Appointment: Ira Morales WPtel: [phone] [place] (15 min) Moderate 06/22/2018 Visit Plan: Hypertension - well controlled - continue with current medications, continue with no added salt diet. Pt has been encouraged to exercise daily. The pt has been advised to call the office if there are any acute concerns about change in blood pressure readings at home. Recommend patient start seeing a plastic eye technician for yearly skin checks/monitoring of moles 05/19/2018 Visit Plan: Hypertension - well controlled - continue with current medications, continue with no added salt diet. Pt has been encouraged to exercise daily. The pt has been advised to call the office if there are any acute concerns about change in blood pressure readings at home. Recommend patient start seeing a plastic eye technician for yearly skin checks/monitoring of moles 05/19/2018 Appointment: Ira Morales WPtel: [phone] (15 min) Moderate 05/19/2018 Patient Education: Patient Medication Summary Completed 05/19/2018 Visit Plan: Overweight - chronic issue with this patient. The pt has been counseled about diet changes, calorie restriction, and need to exercise. Pt will RTC in one month for weight check. 06/27/2017 Appointment: Ira Morales WPtel: [phone] (15 min) Moderate 06/27/2017 Patient Education: Patient Medication Summary Completed 06/27/2017 Patient Education: Obesity Completed 06/27/2017 Visit Plan: Overweight - chronic issue with this patient. The pt has been counseled about diet changes, calorie restriction, and need to exercise. Pt will RTC in one month for weight check. 04/22/2017 Appointment: Ira Morales WPtel: [phone] (30 min) Complex 04/22/2017 Patient Education: Patient Medication Summary Completed 04/22/2017 Patient Education: Obesity Completed 04/22/2017 Visit Plan: Left jsh-cwyzeglrmiphrg-nobwikbq-Dr Ely in to evaluate patient-plan for besivance eye drops and zpack to cover H.flu-CT scan sinus for further evaluation-will also check TSH today in the office- patient verbalized understanding of plan. 01/11/2017 Appointment: Ira Morales WPtel: [phone] (30 min) Complex 01/11/2017 Patient Education: [...] interventions. 12/03/2016 App[facility]ment: [facility] (30 min) Complex 12/03/2016 Patient Education: Patient Medication Summary Completed 12/03/2016 Appointment: Rad[facility] Penalozal[facility] (15 min) Moderate 04/01/2016 Visit Plan: [...] Hypertension Completed 02/18/2014 [facility] [phone] [phone] Other 02/15/2014 Appointment: Ira Morales WPtel: [address] [place], [place] [phone] [place] [address] Nurse Visit 09/13/2013 Patient Education: Patient Medication [...] weight check. 06/28/2013 Appointment: Ira Morales WPtel: [address] [place], [place] [phone] Follow up 06/28/2013 Patient Education: Patient Medication Summary Completed 06/28/2013 Patient Education: Hypertension Completed 06/28/2013 Visit Plan: Weight and blood pressure check 02/23/2013 Appointment: Ira Morales WPtel: [address] [place], [place] [phone] [place] [address] Follow up 02/23/2013 Patient Education: Patient Medication Summary Completed 02/23/2013 Visit Plan: URI -cough- Pt advised to increase fluids, vitamin C. Discussed natural and expected course of this diagnosis and need to alert me if symtpoms do not follow expected course, or if any worse. RX sent to patient's pharmacy. Rocephin injection today in the office. Overweight-refill phentermine 01/05/2013 Appointment: Ira Morales WPtel: [address] [place], [place] [id number] Sick 01/05/2013 Patient Education: Patient Medication Summary [...] 11/01/2012 Appointment: Ira Morales WPtel: [facility] [facility] Physical 11/01/2012 Patient Education: Patient Medication Summary [...] 2 weeks. 08/17/2012 Appointment: Ira Morales WPtel: [facility] [facility] [address] Other 08/17/2012 Patient Education: Patient Medication Summary Completed 08/17/2012 Patient Education: High Blood Pressure: Essential Hypertension Completed 08/17/2012 Appointment: Tea Ely WPtel: [address] [place], [place] [phone] Surgical Procedure 07/11/2012 Appointment: Tea Ely WPtel: [address] [place] [address] Surgical Procedure 02/22/2012 Visit Plan: Overweight - [...] weight check. 02/14/2012 Appointment: Tea Ely WPtel: [address] [place], [place] [id number] Other 02/14/2012 Patient Education: Patient Medication Summary [...] punch biopsy. 11/18/2011 Appointment: Tea Ely WPtel: [facility] [id number] [place] Pap Only 11/18/2011 Patient Education: Patient [...] at home. 10/20/2011 Appointment: Ira Morales WPtel: [facility] [phone] [place] Other 10/20/2011 Patient Education: Patient Medication Summary Completed 10/20/2011 Patient Education: High Blood Pressure: Essential Hypertension Completed 10/20/2011 Appointment: Ira Morales WPtel: [facility] [phone] [place] Other 09/28/2011 Instructions Comment . Allergies - [...] at home. Recommend patient start seeing a plastic eye technician for yearly skin checks/monitoring of moles . [...] Call if symptoms do not show improvement. zyrtec or kenan salt water gargles start [...] the nasal steroid allergy spray. . Left frw-qwfewgsxsvupgh-cczzdtuw-Dr Ely in to evaluate patient-plan for besivance eye drops and zpack to cover H.flu-CT scan sinus for further evaluation-will also check TSH today in the office-patient verbalized understanding of plan. . Sinusitis - Pt has acute infection [...] in 1 month for weight check. . Overweight - [...] in blood pressure readings at home. . Well Adult Female - exam completed. [...] at home. Recommend patient start seeing a plastic eye technician for yearly skin checks/monitoring of moles . [...]
--- NOTE | 2019-07-06 20:40 | OPERATIVE REPORT ---
DATE OF SERVICE: COLONOSCOPY SUMMARY INDICATION FOR THE PROCEDURE: Chronic constipation as well as screening. The patient was placed in left lateral decubitus position. Digital rectal evaluation was performed. Anal sphincter tone was normal. The perianal reflexes intact. No abnormalities were noted on additional inspection of the anal canal or distal rectal vault. The colonoscope was then inserted into the rectum and under direct visualization advanced to the cecum. The cecum was identified by identification of the ileocecal valve and cecal strap. Photographic documentation was obtained. Quality of the prep was good. The patient tolerated the procedure well. FINDINGS: No evidence for internal or external hemorrhoids. Several small sigmoid diverticulum were present without evidence for diverticulitis. No other sigmoid colonic abnormalities were noted. The descending colon, splenic flexure, transverse colon, hepatic flexure as well as distal ascending colon were unremarkable. Present in the proximal ascending colon was a sessile 8 mm adenomatous appearing polyp. It was photographed and biopsied and ablated. There is more than the usual amount of blood loss. So, an Endoclip was placed with cessation of oozing. I would estimate 5 to 10 mL blood loss. The cecum of the colon was unremarkable. ASSESSMENT: One roughly 8 x 10 mm sessile adenomatous appearing polyp was removed via hot forceps from the proximal ascending colon. We will await histopath evaluation, but will likely be recommending a 1-year surveillance interval. Mild diverticular disease confined to the sigmoid colon was present without evidence for diverticulitis. Due to this, the patient's quite symptomatic chronic constipation, findings are most compatible with chronic constipation, IBS-C favor to be less likely. I did take the liberty of having the patient return, to discuss Linzess and likely initiate therapy and refer back to Dr. Ely. I thank you for the referral of this pleasant lady. Job ID: [id number] DocumentID: [id number] Dictated Date: 07/06/2019 11:35:59 Orthodontic Band Maker Date: 07/06/2019 20:40:27 Dictated By: RUTH RUSSELL MD [facility]
--- NOTE | 2019-07-12 02:39 | OPERATIVE REPORT ---
DATE OF SERVICE: ADDENDUM The patient's pathology report returned on a proximal ascending colonic sessile polyp. It was a benign tubular adenoma. Because of its location and size, I have advocated repeat colonoscopy in one year. She has been placed on the callback list for reminder and notified of her report. As always, I thank you for your referral. Job ID: [id number] DocumentID: [id number] Dictated Date: 07/11/2019 16:48:57 Senior Security Architect Date: 07/12/2019 02:38:34 Dictated By: RUTH RUSSELL MD
== END 2019-07-06 09:40 | disposition home or self-care (01) ==
LOC: ENDO 07:04
PROVIDERS: ATTEND Internal Medicine
DX: D12.2 Benign neoplasm of ascending colon (principal); K57.30 Diverticulosis of large intestine without perforation or abscess without bleeding; K59.09 Other constipation; I10 Essential (primary) hypertension; G43.909 Migraine, unspecified, not intractable, without status migrainosus; Z79.899 Other long term (current) drug therapy

== ENCOUNTER → 2020-10-15 | Outpatient (CLI) | payer BC ==
--- NOTE | 2020-10-15 10:04 | Diagnostic Imaging Report ---
Indication: Abdominal pain KUB 9:42 AM There are postsurgical changes in the lower pelvis. Gallbladder appears to be surgically absent. There may be some thickening of the small bowel mucosal folds in the mid abdomen. There are no pathologic masses or calcifications. IMPRESSION: Thickened small bowel mucosa could be due to inflammatory bowel disease. There is no evidence of obstruction. Dictated by: Dictated on workstation # [id number]
== END ==
LOC: RAD 09:17
PROVIDERS: ATTEND Nurse Practitioner Family
DX: K63.89 Other specified diseases of intestine (principal); R10.9 Unspecified abdominal pain; Z98.890 Other specified postprocedural states
CPT/HCPCS: 74018